=== PATIENT | female | born 1970 | race Caucasian/White ===

== ENCOUNTER 2017-03-12 14:15 | Outpatient (RCR) | payer BC, SELFPAY ==
[2017-02-18 08:33] VITALS: BMI 24.0
== END 2017-03-12 23:59 ==
LOC: CR 14:15
PROVIDERS: Family Provider Family Medicine; PCP Family Medicine; Visit Provider Internal Medicine Cardiovascular Disease
DX: I23.3 Rupture of cardiac wall without hemopericardium as current complication following acute myocardial infarction (principal); I25.798 Atherosclerosis of other coronary artery bypass graft(s) with other forms of angina pectoris; Z95.5 Presence of coronary angioplasty implant and graft
CPT/HCPCS: 93798

== ENCOUNTER 2017-03-13 00:23 | Emergency (ER) | payer BC, SELFPAY ==
[2017-02-18 08:33] VITALS: BMI 24.0
[2017-03-13 00:24] VITALS: BP 127/83; PULSE 73; RESP 12; TEMP 36.7; O2SAT 98; BMI 23.6
--- NOTE | 2017-03-13 00:41 | EKG12_ITS ---
Test Reason : CP Blood Pressure : / mmHG Vent. Rate : 069 BPM Atrial Rate : 069 BPM P-R Int : 124 ms QRS Dur : 084 ms QT Int : 402 ms P-R-T Axes : 060 001 -07 degrees QTc Int : 430 ms Normal sinus rhythm T wave abnormality, consider inferior ischemia Abnormal ECG Peaked T waves Confirmed by CALVIN MACK, IRA ([id number]), editorial manager KHALIF GARCIA ([id number] on 03/17/2017 4:13:04 PM Referred By: Ira Portillo Confirmed By:IRA PORTILLO MD
--- NOTE | 2017-03-13 00:41 | RAD_ITS ---
STUDY: X-RAY CHEST REASON FOR EXAM: Female, 47 years old. Left-sided chest pain TECHNIQUE: Single AP portable view of the chest. COMPARISON: 02/20/2017 FINDINGS: The lungs are clear and expanded. There is no demonstrated pleural abnormality. Normal size heart. Normal mediastinum and lester. Normal visualized pulmonary arteries. Normal visualized aortic arch and descending thoracic aorta. Normal visualized thoracic spine. Normal visualized ribs, clavicles, and shoulders. There is no demonstrated abnormality of the visualized soft tissue structures of the upper abdomen. RAD/Chest 1 View (Portable) IMPRESSION: Normal x-ray examination of the chest. Electronically Signed: Brian Carter MD at 1:49 EST Tel , Service support ,
[2017-03-13 00:44] VITALS: BP 108/73; PULSE 69; RESP 15; O2SAT 100
[2017-03-13 00:53] LABS: Absolute Lymphocyte Count 3.56 X10^3/ul (0.83-4.51); Absolute Neutrophil Count 5.2 X10^3/uL (2.0-7.7); Basophil# 0.06 X10^3/uL; Basophil% 0.6 % (0-1); Eosinophil# 0.19 X10^3/uL; Eosinophils% 1.9 % (0-5); Hematocrit 36.9 % (37-47); Hemoglobin 12.4 g/dl (12.0-15.0); Lymphocyte # 3.56 X10^3/ul (4.0); Lymphocyte % 35.9 % (19-41); Mean Corp Hgb Conc 33.6 g/gl (32-36); Mean Corpuscular Hgb 31.7 pg (27.0-32.0); Mean Corpuscular Volume 94.4 fL (81-99); Mean Platelet Vol. 11.4 fl (6.2-12.0); Monocyte# 0.88 X10^3/uL; Monocyte% 8.9 % (0-10); Neutrophil # 5.21 X10^3/uL (2.7-7.7); Neutrophil % 52.5 % (47-70); POSITIVE COUNT NO; POSITIVE DIFFERENTIAL NO; POSITIVE MORPHOLOGY NO; Platelet Count 197 K/mm3 (150-450); RBC Distribution Width SD 43.8 fl (35.1-43.9); Red Blood Count 3.91 M/mm3 (4.2-5.4); White Blood Count 9.9 K/mm3 (4.4-11.0)
[2017-03-13 01:03] LABS: Anion Gap 9 (5-15); BUN 13 mg/dL (7-18); BUN/Creat Ratio 17.2 RATIO (10-20); Chloride 104 mmol/L (98-107); Creatinine, Serum 0.76 mg/dL (0.55-1.02); EST Glomerular Filtration Rate 88 mL/min (>60); Est Glom Filt Rate - Afr Amer 106 mL/min (>60); Estimated Creatinine Clearance 87.51 ml/min; Glucose 86 mg/dL (70-110); Potassium 3.7 mmol/L (3.5-5.1); Sodium Level 140 mmol/L (136-145)
[2017-03-13 02:14] VITALS: BP 101/67; PULSE 64; RESP 16; O2SAT 96
--- NOTE | 2017-03-13 03:03 | ED.VISSUMM ---
- ER Visit Summary Date of Service: 03/13/17 Chief Complaint: [] Chest pain History of Present Illness: The patient is a 47 F resents with chest pain that started 5 hours prior to coming in. Came on gradually and is continuous. Current severity is gone. Worsened by nothing. She had a STEMI on February 17 and received 1 stent to her left circumflex. He had a V. fib arrest as well and received CPR. Since her discharge she has had some residual chest discomfort mainly on the right side from the CPR. She had her second visit at cardiac rehab today. She is on aspirin and Plavix. Physical Examination: [] Vital signs reviewed General: Well-nourished well-developed Head: Normocephalic atraumatic Eyes: Pupils equal round and reactive to light extraocular movements intact ENT: TMs clear no hemotympanum no trauma Neck: Nontender full range of motion Cardiovascular: Regular rate rhythm no murmurs normal S1-S2 Respiratory: No distress clear to auscultation bilaterally chest nontender Abdomen: Soft nontender nondistended normal bowel sounds no masses Back: Nontender no CVA tenderness Extremities: Nontender active range of motion ?4 extremities no trauma Skin: Normal color no trauma Neuro alert oriented cranial nerves II through XII intact normal strength sensation reflexes Test Results: [] Initial EKG shows sinus rhythm at a rate of 69. T-wave inversion inferior leads as well as V6. This is unchanged from prior. CBC normal. Chemistry normal. Chest x-ray normal. Initial troponin negative. Delta troponin II hours later also negative. Patient remained chest pain-free in the department. Of a low suspicion for acute coronary syndrome PE or dissection. I feel she can be discharged to follow-up. I do not feel this is cardiac related. Treatment Plan: [] Disposition: [] Impression: [] Chest pain This note was generated with [facility] dictation software. It may contain incorrect words, spelling, and punctuation that were not noted in review of the chart prior to signing ED Disposition - Plan for ED Patient: Chief Complaint: Chest Pain Referrals: Colleen Holbrook MD [Primary Care Provider] -
[2017-03-13 03:05] VITALS: BP 96/57; PULSE 67; PULSE 71; RESP 14; RESP 16; O2SAT 96; O2SAT 97
--- NOTE | 2017-03-13 03:05 | ED.DEP ---
ED Disposition - Plan for ED Patient: Disposition: Home or Assisted Living Chief Complaint: Chest Pain Instructions: ED Chest Pain NonCardiac Referrals: Colleen Holbrook MD [Primary Care Provider] - Guillermo Portillo MD [STAFF PHYSICIAN] -
== END 2017-03-13 03:10 | disposition home or self-care (01) ==
PROVIDERS: Emergency Provider Emergency Medicine; Family Provider Family Medicine; PCP Family Medicine
DX: R07.9 Chest pain, unspecified (principal); I25.2 Old myocardial infarction; Z95.5 Presence of coronary angioplasty implant and graft; Z79.01 Long term (current) use of anticoagulants; Z86.74 Personal history of sudden cardiac arrest; I25.10 Atherosclerotic heart disease of native coronary artery without angina pectoris; I10 Essential (primary) hypertension; Z72.0 Tobacco use; Z79.82 Long term (current) use of aspirin; Z79.899 Other long term (current) drug therapy
CPT/HCPCS: 71045; 80048; 84484; 85025; 93005; 99284; A4216

== ENCOUNTER 2017-03-17 21:22 | Emergency (ER) | payer BC, SELFPAY ==
[2017-02-18 08:33] VITALS: BMI 24.0
[2017-02-18 09:00] VITALS: BP 72/65; BP 86/58
[2017-02-20 08:30] VITALS: BP 92/60
[2017-03-17 21:22] VITALS: BP 108/73
[2017-03-17 21:23] VITALS: BP 133/81; PULSE 92; RESP 18; TEMP 36.7; O2SAT 98; BMI 22.1
--- NOTE | 2017-03-17 21:45 | CT_ITS ---
STUDY: CT ABDOMEN AND PELVIS WITH CONTRAST REASON FOR EXAM: Female, 47 years old. Bloody diarrhea. RADIATION DOSAGE (If Supplied By Facility): CTDIvol = ( 10.57 ) mGy, DLP = ( 509.88 ) mGycm TECHNIQUE: Transaxial images were obtained from the dome of the diaphragm to the symphysis pubis without oral contrast. 100ml ml of Isovue 300 contrast was administered. Sagittal and coronal images were reconstructed. Individualized dose optimization techniques were used for this CT. COMPARISON: None. FINDINGS: The visualized lung bases are unremarkable. The visualized portions of the heart are within normal limits. There is thickening of the pericardium probably due to motion. There is no definite pericardial effusion. There is hepatomegaly with diffuse hepatic enlargement. There are surgical clips in the gallbladder fossa consistent with a prior cholecystectomy. Normal spleen. Normal pancreas. Normal bilateral adrenal glands. Normal right kidney. There is a small low-density lesion in the mid aspect of the left kidney likely presenting small cyst measuring about 1 cm better evaluated by ultrasound. There is a 2 mm nonobstructing stone in the lower pole of the left kidney. There is no evidence of hydronephrosis.. The stomach is somewhat distended. There is an artifact the anterior aspect of the stomach close to the anterior abdominal wall. Underlying foreign body cannot be excluded. Normal small intestine. There is fecal retention. The appendix is visualized and appears normal. There is mild atherosclerotic calcification of the distal abdominal aorta, without a demonstrated aneurysm. Normal inferior vena cava. There are small retroperitoneal nodes in the left periaortic region. Normal urinary bladder. There is a 3.5 cm right adnexal cystic lesion. There is a small umbilical hernia containing fat. There is mild disc space narrowing of L4-L5. CT/Abdomen/Pelvis WITH Contrast IMPRESSION: Hepatomegaly. Status post cholecystectomy. Small nonobstructing stone in the left kidney without evidence of hydronephrosis. Artifact in the region of the stomach as described above. Underlying foreign body cannot be excluded. No evidence of small bowel obstruction. Electronically Signed: Joel Pan MD at 0:17 EST Tel , Service support ,
[2017-03-17 21:54] VITALS: BP 109/78; BP 118/79; BP 125/101; PULSE 102; PULSE 88; PULSE 89
[2017-03-17] MEDS: 0.9% Normal Saline 1,000 ML 1000 ML IV (21:58)
--- NOTE | 2017-03-17 21:58 | ED.VISSUMM ---
- ER Visit Summary Date of Service: 03/17/17 Chief Complaint: Bloody diarrhea History of Present Illness: The patient is a [address] Worley and Dr. Portillo. She reports that she has chronic loose stools since having a cholecystectomy. This has worsened since February 17. States that yesterday they were is a trace of blood in her stool. Today she has had bright red blood in her diarrhea. She reports she had 6 episodes of diarrhea 2 days ago and was going once an hour yesterday. She was on Augmentin last month when hospitalized for a STEMI. Patient denies any fever or chills. No abdominal pain, nausea, or vomiting. No chest pain or shortness of breath. Physical Examination: Vitals: Stable. Afebrile. General: Well-nourished and well-developed. Head: Normocephalic atraumatic. Neck: Supple, no lymphadenopathy. No JVD. Nontender. Cardiovascular: Regular rate and rhythm. No murmurs. Respiratory: No respiratory distress. Clear to auscultation bilaterally. Abdominal: Soft, nontender, nondistended, normal bowel sounds. No guarding, rebound, or peritoneal signs. Back: Nontender. Extremities: Nontender, no edema. Skin: Normal color, no rash. Neurologic: Alert and oriented ?3. Cranial nerves II through XII are intact. Normal strength and sensation. Psych: Normal affect. Test Results: CBC is remarkable for an H&H of 12.1 and 36.7. Her hemoglobin was 12.44 days ago. It ranged between 10.6 and 14 so far this year. Lymphocytes of 18 and monocytes of 12. Chem-7 is normal. Hemoccult is positive. C. difficile is positive. Emergency Department Course and Treatment: Patient did have a small amount of mucousy diarrhea in the emergency department. There was no obvious blood in this. She was given Flagyl p.o. She is resting comfortably and would like to go home. Treatment Plan: I do not think it is in her best interest to stop her aspirin or Plavix. She is instructed to continue these. She will be placed on Flagyl p.o. Instructed to follow-up with her primary care physician in 1-2 days for repeat hemoglobin. Return to the emergency department for worsening bleeding. Disposition: To home in improved and stable condition. Impression: 1. C. difficile colitis. This note was generated with [employer] dictation software. It may contain incorrect words, spelling, and punctuation that were not noted in review of the chart prior to signing ED Disposition - Plan for ED Patient: Chief Complaint: GI Bleed Instructions: Clostridium difficile Infection Prescriptions: Metronidazole [Flagyl] 500 mg PO Q6H #40 tablet Referrals: Colleen Holbrook MD [Primary Care Provider] - 2 Days
[2017-03-17 22:06] LABS: Absolute Neutrophil Count 7.4 X10^3/uL (2.0-7.7); Basophil# 0.01 X10^3/uL; Basophil% 0.1 % (0-1); Eosinophils% 0.9 % (0-5); Hematocrit 36.7 % (37-47); Hemoglobin 12.1 g/dl (12.0-15.0); Lymphocyte % 17.7 % (19-41); Mean Corpuscular Hgb 30.8 pg (27.0-32.0); Mean Corpuscular Volume 93.4 fL (81-99); Mean Platelet Vol. 10.6 fl (6.2-12.0); Monocyte# 1.26 X10^3/uL; Monocyte% 11.7 % (0-10); Neutrophil # 7.44 X10^3/uL (2.7-7.7); Neutrophil % 69.4 % (47-70); POSITIVE COUNT NO; POSITIVE DIFFERENTIAL NO; POSITIVE MORPHOLOGY NO; Platelet Count 193 K/mm3 (150-450); RBC Distribution Width CV 13.2 % (11.6-14.6); RBC Distribution Width SD 45.3 fl (35.1-43.9); Red Blood Count 3.93 M/mm3 (4.2-5.4); White Blood Count 10.7 K/mm3 (4.4-11.0)
[2017-03-17 22:13] LABS: Anion Gap 7 (5-15); BUN 15 mg/dL (7-18); BUN/Creat Ratio 15.2 RATIO (10-20); Calcium,Total 8.8 mg/dL (8.5-10.1); Chloride 106 mmol/L (98-107); Creatinine, Serum 0.98 mg/dL (0.55-1.02); EST Glomerular Filtration Rate 65 mL/min (>60); Est Glom Filt Rate - Afr Amer 79 mL/min (>60); Estimated Creatinine Clearance 67.86 ml/min; Glucose 93 mg/dL (74-106); Potassium 3.5 mmol/L (3.5-5.1); Sodium Level 139 mmol/L (136-145)
--- NOTE | 2017-03-17 23:45 | ED.RN ---
LAB CALLS AND STATES THAT PATIENT IS POSITIVE FOR C-DIFF, DR. PLAZA MADE AWARE.
[2017-03-18 00:19] VITALS: BP 120/67; PULSE 87; RESP 16; O2SAT 98
== END 2017-03-18 00:45 | disposition home or self-care (01) ==
LOC: ED 22:00
PROVIDERS: Emergency Provider Emergency Medicine; Family Provider Family Medicine; PCP Family Medicine
DX: A04.72 Enterocolitis due to Clostridium difficile, not specified as recurrent (principal); I25.10 Atherosclerotic heart disease of native coronary artery without angina pectoris; I10 Essential (primary) hypertension; E78.00 Pure hypercholesterolemia, unspecified; Z87.891 Personal history of nicotine dependence; Z79.82 Long term (current) use of aspirin; Z79.01 Long term (current) use of anticoagulants; Z79.899 Other long term (current) drug therapy; Z90.49 Acquired absence of other specified parts of digestive tract; Z90.710 Acquired absence of both cervix and uterus
CPT/HCPCS: 74177; 80048; 82274; 85025; 86850; 86900; 87493; 87506; 99285; J7030; Q9967

== ENCOUNTER 2017-04-07 14:15 | Outpatient (RCR) | payer BC, SELFPAY ==
[2017-02-18 08:33] VITALS: BMI 24.0
[2017-02-18 09:00] VITALS: BP 72/65; BP 86/58
[2017-02-20 08:30] VITALS: BP 92/60
[2017-03-13 00:44] VITALS: BP 108/73
[2017-04-09 13:24] VITALS: BP 140/78; BP 90/68
--- NOTE | 2017-04-09 13:24 | CR.ITP_ITS ---
Exercise - Initial Assessment - Stages of Change Stages of Change:: Action - Exercise Prescription Mode:: Treadmill, Rower, Airdyne, NuStep Angina with exercise?: No Target Heart Rate:: 131-140 - Intervention Home Exercise/Activity Goal:: Moderate Exercise 30 min/day x 5 days/wk - Education Goals:: Warm-up, RPE JULIAN Scale, S/S, Safe Exercise, Self-Monitoring - Exercise Program Goals Exercise Program Goals: Aerobic Activity >30 min Exercise - 30-day Assessment - Visit Date of Eval: 04/09/17 Session #:: 03/10/2017-04/09/2017 - Stages of Change Stages of Change:: Action - Exercise Prescription Mode:: Treadmill, Rower, Airdyne, NuStep Frequency (x/week): 3 Duration:: 30 METs - Progression: 0.5-1 MET as tolerated: 6 Target Heart Rate:: 131-141 - Hypertension Resting Blood Pressure:: 90/68 Peak Exercise Blood Pressure:: 140/78 Medication Changes:: No - Intervention Home Exercise/Activity Goal:: Moderate Exercise 30 min/day x 5 days/wk - Education Goals:: Warm-up, RPE JULIAN Scale, S/S, Safe Exercise, Self-Monitoring - Exercise Program Goals Exercise Program Goals: Aerobic Activity >30 min Nutrition - Initial Assessment - Program Goals Nutrition Program Goals: LDL <70. Total Cholesterol <200. HDL >45. Triglycerides <150. HgbA1C <7%. BMI <25 - Stages of Change Stages of Change:: Action - Diabetes Diabetes:: No Non-Insulin Dependent?: No Do you monitor your blood sugar at home?: No - Weight Management Body Fat %:: 22 Total Score:: 3 - Intervention Referral to dietitian:: No Referral to Diabetic Clinic:: No Will attend diet classes:: No - Education Gave educational materials for:: Healthy eating Nutrition - 30-Day Assessment - Program Goals Nutrition Program Goals: LDL <70. Total Cholesterol <200. HDL >45. Triglycerides <150. HgbA1C <7%. BMI <25 - Visit Date of Eval: 04/09/17 - Stages of Change Stages of Change:: Action - Lipids Has the patient seen the dietitian?: No - Diabetes Diabetes:: No Insulin: No Non-Insulin Dependent?: No - Weight Management Weight:: 139 lb - Intervention Referral to dietitian:: No Referral to Diabetic Clinic:: No Will attend diet classes:: No - Education Attended class for:: Healthy eating Nutrition - 60-Day Assessment - Program Goals Nutrition Program Goals: LDL <70. Total Cholesterol <200. HDL >45. Triglycerides <150. HgbA1C <7%. BMI <25 - Diabetes Diabetes:: No Insulin: No Non-Insulin Dependent?: No - Intervention Referral to dietitian:: No Referral to Diabetic Clinic:: No Will attend diet classes:: No - Education Attended class for:: Healthy eating Nutrition - 90-Day Assessment - Program Goals Nutrition Program Goals: LDL <70. Total Cholesterol <200. HDL >45. Triglycerides <150. HgbA1C <7%. BMI <25 - Diabetes Diabetes:: No Insulin: No Non-Insulin Dependent?: No - Intervention Referral to dietitian:: No Referral to Diabetic Clinic:: No Will attend diet classes:: No - Education Attended class for:: Healthy eating Nutrition - Final Assessment - Program Goals Nutrition Program Goals: LDL <70. Total Cholesterol <200. HDL >45. Triglycerides <150. HgbA1C <7%. BMI <25 - Diabetes Diabetes:: No Insulin: No Non-Insulin Dependent?: No - Weight Management Body Fat %:: 22 Total Score:: 3 - Intervention Referral to dietitian:: No Referral to Diabetic Clinic:: No Will attend diet classes:: No Tobacco - Initial Assessment - Program Goals Tobacco Program Goals: Complete smoking cessation. Attend education classes. Improve Knowledge Test score - Stage of Change Stages of Change:: Action - Learning Barriers Learning Barriers: Vision, Ready to Learn Total Score:: 10 - Family Support Do you have family support?: Yes - Tobacco Use Tobacco Use: Cigarettes How long ago did you quit using tobacco products?: Less than 6 months ago How many cigarettes do you smoke per day?: 20 Years Smokin Do you use smokeless tobacco?: No - Intervention Smoking Cessation Referral:: Yes - Patient only been smoke free 11 days; 45 Pack year history. Individual Education/Counseling:: Yes - Recommended meeting with Meg Neil RRT for smoking cessation. Education Schedule Given:: Yes - Education Gave educational material for:: Tobacco triggers, Coronary artery disease, Risk factors, Sexuality, Medical compliance, Cardiac A&P, Angina signs & symptoms Tobacco - 30-Day Assessment - Program Goals Tobacco Program Goals: Complete smoking cessation. Attend education classes. Improve Knowledge Test score - Stage of Change Stages of Change:: Action - Learning Barriers Learning Barriers: Participates in education, Change in behavior - Family Support Do you have family support?: Yes - Tobacco Use Tobacco Use: Non-smoker How many cigarettes do you smoke per day?: 20 Do you use smokeless tobacco?: No - Intervention Smoking Cessation Referral:: Yes - Patient only been smoke free 11 days; 45 Pack year history. Individual Education/Counseling:: Yes - Recommended meeting with Meg Neil RRT for smoking cessation. Education Schedule Given:: Yes - Education Attended class for:: Tobacco triggers, Coronary artery disease, Risk factors, Sexuality, Medical compliance, Cardiac A&P, Angina signs & symptoms Tobacco - 60-Day Assessment - Program Goals Tobacco Program Goals: Complete smoking cessation. Attend education classes. Improve Knowledge Test score - Family Support Do you have family support?: Yes - Tobacco Use How many cigarettes do you smoke per day?: 20 Do you use smokeless tobacco?: No - Intervention Smoking Cessation Referral:: Yes - Patient only been smoke free 11 days; 45 Pack year history. Individual Education/Counseling:: Yes - Recommended meeting with Meg Neil RRT for smoking cessation. Education Schedule Given:: Yes - Education Attended class for:: Tobacco triggers, Coronary artery disease, Risk factors, Sexuality, Medical compliance, Cardiac A&P, Angina signs & symptoms Tobacco - 90-Day Assessment - Program Goals Tobacco Program Goals: Complete smoking cessation. Attend education classes. Improve Knowledge Test score - Family Support Do you have family support?: Yes - Tobacco Use How many cigarettes do you smoke per day?: 20 Do you use smokeless tobacco?: No - Intervention Smoking Cessation Referral:: Yes - Patient only been smoke free 11 days; 45 Pack year history. Individual Education/Counseling:: Yes - Recommended meeting with Meg Neil RRT for smoking cessation. Education Schedule Given:: Yes - Education Attended class for:: Tobacco triggers, Coronary artery disease, Risk factors, Sexuality, Medical compliance, Cardiac A&P, Angina signs & symptoms Tobacco - Final Assessment - Program Goals Tobacco Program Goals: Complete smoking cessation. Attend education classes. Improve Knowledge Test score - Learning Barriers Cardiac Knowledge Test Score:: 10 - Family Support Do you have family support?: Yes - Tobacco Use How many cigarettes do you smoke per day?: 20 Do you use smokeless tobacco?: No - Intervention Smoking Cessation Referral:: Yes - Patient only been smoke free 11 days; 45 Pack year history. Individual Education/Counseling:: Yes - Recommended meeting with Meg Neil RRT for smoking cessation. Education Schedule Given:: Yes Psychosocial - Initial Assess - Target Goals Target Goals: Assess presence or absence of depression. Using a valid screening tool, maximizes coping skills. Positive support system - Stages of Change Stages of Change:: Action - Psychosocial Test Tool Used:: HANDS Depression Questionnaire Self-Efficacy Score:: 5 - Intervention PS - Interventions: Yes Attend Stress Management Classes, Yes Uses Stress Management Skills, No Referral to Mental Health, No Referral to [facility] Case Management, No Referral to Physician - Education Gave educational materials for:: Coping techniques, Signs & symptoms of depression, Stress management, Relaxation techniques - Patient/Program Goal Preventative Medication(s):: Aspirin, Clopidogrel - Assistive Devices Assistive Devices:: None Fall Risk Assessed:: Yes Psychosocial - 30-Day Assess - Target Goals Target Goals: Assess presence or absence of depression. Using a valid screening tool, maximizes coping skills. Positive support system - Stages of Change Stages of Change:: Action - Psychosocial Test Tool Used:: HANDS Depression Questionnaire Self-Efficacy Score:: 5 - Intervention PS - Interventions: Yes Attend Stress Management Classes, Yes Uses Stress Management Skills, No Referral to Mental Health, No Referral to [facility] Case Management, No Referral to Physician - Education Attended classes for:: Coping techniques, Signs & symptoms of depression, Stress management, Relaxation techniques - Patient/Program Goal Preventative Medication(s):: Aspirin, Clopidogrel - Assistive Devices Assistive Devices:: None Fall Risk Assessed:: Yes Psychosocial - 60-Day Assess - Target Goals Target Goals: Assess presence or absence of depression. Using a valid screening tool, maximizes coping skills. Positive support system - Psychosocial Test Tool Used:: HANDS Depression Questionnaire Self-Efficacy Score:: 5 - Education Attended classes for:: Coping techniques, Signs & symptoms of depression, Stress management, Relaxation techniques - Patient/Program Goal Preventative Medication(s):: Aspirin, Clopidogrel - Assistive Devices Assistive Devices:: None Fall Risk Assessed:: Yes Psychosocial - 90-Day Assess - Target Goals Target Goals: Assess presence or absence of depression. Using a valid screening tool, maximizes coping skills. Positive support system - Psychosocial Test Tool Used:: HANDS Depression Questionnaire Self-Efficacy Score:: 5 - Education Attended classes for:: Coping techniques, Signs & symptoms of depression, Stress management, Relaxation techniques - Patient/Program Goal Preventative Medication(s):: Aspirin, Clopidogrel - Assistive Devices Assistive Devices:: None Fall Risk Assessed:: Yes Psychosocial - Final Assessmen - Target Goals Target Goals: Assess presence or absence of depression. Using a valid screening tool, maximizes coping skills. Positive support system - Psychosocial Test Tool Used:: HANDS Depression Questionnaire Self-Efficacy Score:: 5 - Patient/Program Goal Preventative Medication(s):: Aspirin, Clopidogrel - Assistive Devices Assistive Devices:: None Fall Risk Assessed:: Yes Patient Health Questionnaire 30-Day Re-eval Assessment 1. Little interest or pleasure in doing things: Not at all 2. Feeling down, depressed, or hopeless: Several days 3. Trouble falling or staying asleep, or sleeping too much: Not at all 4. Feeling tired or having little energy: Not at all 5. Poor appetite or overeating: Not at all 6. Feeling bad about yourself -- or that you are a failure or have let yourself or your family down: Not at all 7. Trouble concentrating on things, such as reading the newspaper or watching television: Several days 8. Moving or speaking so slowly that other people could have noticed. Or the opposite - being so fidgety or restless that you have been moving around a lot more than usual: Not at all 9. Thoughts that you would be better off , or of hurting yourself in some way: Not at all Total Score: 2 Self-Efficacy 30-Day Re-eval Assessment We would like to know how confident you are in doing certain activities. Please select your confidence level for:: Select your confidence level for the following using the scale 1-10 where 1 is not at all confident and 10 is totally confident. Your score is the average of all 6 responses. Fatigue: How confident are you that you can keep the fatigue caused by your disease from interfering with the things you want to do? Select Number: 8 Physical Discomfort or Pain: How confident are you that you can keep the physical discomfort or pain of your disease from interfering with the things you want to do? Select Number: 8 Emotional Distress: How confident are you that you can keep the emotional distress caused by your disease from interfering with the things you want to do? Select Number: 7 Other Symptoms or Health Problems: How confident are you that you can keep other symptoms or health problems from interfering with the things you want to do? Select Number: 8 Different Tasks and Activities: How confident are you that you can do the different tasks and activities needed to manage your health condition so as to reduce your need to see a doctor? Select Number: 9 Medication: How confident are you that you can do things other than just taking medication to reduce how much your illness affects your everyday life? Select Number: 10 Total Score:: 8
== END 2017-04-09 23:59 ==
LOC: CR 14:15
PROVIDERS: Family Provider Family Medicine; PCP Family Medicine; Visit Provider Internal Medicine Cardiovascular Disease
DX: I23.3 Rupture of cardiac wall without hemopericardium as current complication following acute myocardial infarction (principal); I25.798 Atherosclerosis of other coronary artery bypass graft(s) with other forms of angina pectoris; I21.3 ST elevation (STEMI) myocardial infarction of unspecified site; Z95.5 Presence of coronary angioplasty implant and graft
CPT/HCPCS: 93798

== ENCOUNTER 2017-04-08 18:49 | Emergency (ER) | payer BC, SELFPAY ==
[2017-02-18 08:33] VITALS: BMI 24.0
[2017-04-08 18:49] VITALS: BP 115/81; PULSE 100; RESP 16; TEMP 37.1; O2SAT 100; BMI 22.6
[2017-04-08] MEDS: Ondansetron 4 MG/2 ML Vial IV (19:28)
[2017-04-08] MEDS: 0.9% Normal Saline 1,000 ML 1000 ML IV (19:28)
[2017-04-08 19:46] LABS: Anion Gap 5 (5-15); BUN 15 mg/dL (7-18); Calcium,Total 8.9 mg/dL (8.5-10.1); Chloride 108 mmol/L (98-107); Creatinine, Serum 0.83 mg/dL (0.55-1.02); EST Glomerular Filtration Rate 79 mL/min (>60); Est Glom Filt Rate - Afr Amer 95 mL/min (>60); Estimated Creatinine Clearance 80.13 ml/min; Glucose 119 mg/dL (74-106); Potassium 3.5 mmol/L (3.5-5.1); Sodium Level 141 mmol/L (136-145)
[2017-04-08 19:58] LABS: Absolute Lymphocyte Count 1.48 X10^3/ul (0.83-4.51); Absolute Neutrophil Count 11.7 X10^3/uL (2.0-7.7); Basophil# 0.02 X10^3/uL; Basophil% 0.1 % (0-1); Eosinophil# 0.19 X10^3/uL; Eosinophils% 1.3 % (0-5); Hematocrit 40.4 % (37-47); Hemoglobin 13.2 g/dl (12.0-15.0); Lymphocyte # 1.48 X10^3/ul (4.0); Lymphocyte % 10.4 % (19-41); Mean Corp Hgb Conc 32.7 g/gl (32-36); Mean Corpuscular Hgb 30.8 pg (27.0-32.0); Mean Corpuscular Volume 94.2 fL (81-99); Mean Platelet Vol. 10.9 fl (6.2-12.0); Monocyte# 0.76 X10^3/uL; Monocyte% 5.4 % (0-10); Neutrophil % 82.7 % (47-70); Platelet Count 204 K/mm3 (150-450); RBC Distribution Width CV 13.3 % (11.6-14.6); RBC Distribution Width SD 45.7 fl (35.1-43.9); Red Blood Count 4.29 M/mm3 (4.2-5.4); White Blood Count 14.2 K/mm3 (4.4-11.0)
[2017-04-08 19:59] LABS: POSITIVE COUNT NO; POSITIVE DIFFERENTIAL NO; POSITIVE MORPHOLOGY NO
--- NOTE | 2017-04-08 23:09 | ED.VISSUMM ---
- ER Visit Summary Date of Service: 04/08/17 Chief Complaint: Diarrhea History of Present Illness: The patient is a [address] Portillo and Dr. Turner. She was diagnosed with Clostridium difficile March 17. She was on Flagyl for 10 days. She reports the diarrhea resolved. However, she began experiencing diarrhea again yesterday. She reports that she has had this proximally 15 times since then. States that it is a faint pink. This is similar to what she had with her C. difficile. She complains of aching diffuse abdominal pain is 8 out of 10 at worst and 5 out of 10 currently. Is worsened by eating or having a bowel movement. It is relieved after having a bowel movement. Physical Examination: Vitals: Stable. Afebrile. General: Well-nourished and well-developed. Head: Normocephalic atraumatic. Neck: Supple, no lymphadenopathy. No JVD. Nontender. Cardiovascular: Regular rate and rhythm. No murmurs. Respiratory: No respiratory distress. Clear to auscultation bilaterally. Abdominal: Soft, mild diffuse tenderness to palpation, nondistended, normal bowel sounds. No guarding, rebound, or peritoneal signs. Back: Nontender. Extremities: Nontender, no edema. Skin: Normal color, no rash. Neurologic: Alert and oriented ?3. Cranial nerves II through XII are intact. Normal strength and sensation. Psych: Normal affect. Test Results: CBC is marked for white count of 14.2, segmented neutrophils 83, lymphocytes of 10. Chem-7 is more for chloride of 108 and glucose 119. C. difficile is positive. Emergency Department Course and Treatment: Patient is treated with Zofran IV and a liter of normal saline. She is given vancomycin p.o. Treatment Plan: Was discussed with Dr. Cheney who asked patient be placed on vancomycin 125 mg p.o. 4 times daily ?14 days. If she is not improving he would be happy to see her. If she has improved to follow-up with her primary care physician. Return to the emergency department for any worsening symptoms. Disposition: To home in improved and stable condition. Impression: 1. Clostridium difficile. This note was generated with [employer]com[employer] software. It may contain incorrect words, spelling, and punctuation that were not noted in review of the chart prior to signing ED Disposition - Plan for ED Patient: Disposition: Home or Assisted Living Chief Complaint: Diarrhea Instructions: Clostridium difficile Infection Prescriptions: Vancomycin [Vancocin] 125 mg PO Q6H #56 capsule Referrals: Prem Cheney MD [STAFF PHYSICIAN] - 10-14 Days if not better Colleen Holbrook MD [Primary Care Provider] - 1-2 Weeks
--- NOTE | 2017-04-08 23:16 | ED.RN ---
LAB CALLS WITH CRITICAL RESULT, C-DIFF POSITIVE, DR. PLAZA MADE AWARE.
[2017-04-08 23:33] VITALS: BP 109/69; PULSE 71; RESP 16; O2SAT 99
== END 2017-04-08 23:33 | disposition home or self-care (01) ==
LOC: ED 19:40
PROVIDERS: Emergency Provider Emergency Medicine; Family Provider Family Medicine; PCP Family Medicine
DX: A04.72 Enterocolitis due to Clostridium difficile, not specified as recurrent (principal); I25.10 Atherosclerotic heart disease of native coronary artery without angina pectoris; I10 Essential (primary) hypertension; E78.00 Pure hypercholesterolemia, unspecified; Z79.82 Long term (current) use of aspirin; Z79.899 Other long term (current) drug therapy
CPT/HCPCS: 80048; 85025; 87493; 96361; 96374; 99283; J7030; J2405

== ENCOUNTER 2017-04-25 14:15 | Outpatient (RCR) | payer BC, SELFPAY ==
[2017-02-18 08:33] VITALS: BMI 24.0
[2017-04-10 00:58] VITALS: BP 108/73; BP 140/78; BP 90/68; BMI 23.6
[2017-05-05 09:19] VITALS: BP 100/60; BP 130/64
--- NOTE | 2017-05-05 09:20 | CR.ITP_ITS ---
Exercise - Initial Assessment - Stages of Change Stages of Change:: Action - Exercise Prescription Mode:: Treadmill, Rower, Airdyne, NuStep Angina with exercise?: No Target Heart Rate:: 131-140 - Intervention Home Exercise/Activity Goal:: Moderate Exercise 30 min/day x 5 days/wk - Education Goals:: Warm-up, RPE JULIAN Scale, S/S, Safe Exercise, Self-Monitoring - Exercise Program Goals Exercise Program Goals: Aerobic Activity >30 min Exercise - 30-day Assessment - Visit Date of Eval: 04/09/17 - Stages of Change Stages of Change:: Action - Exercise Prescription Mode:: Treadmill, Rower, Airdyne, NuStep Frequency (x/week): 3 Duration:: 30 METs - Progression: 0.5-1 MET as tolerated: 6 Target Heart Rate:: 131-141 - Intervention Home Exercise/Activity Goal:: Moderate Exercise 30 min/day x 5 days/wk - Education Goals:: Warm-up, RPE JULIAN Scale, S/S, Safe Exercise, Self-Monitoring - Exercise Program Goals Exercise Program Goals: Aerobic Activity >30 min Exercise - Final/Discharge - Visit Date of Eval: 05/05/17 - 03/21/2017-04/25/2017 Session #:: 16 - [place] - Stages of Change Stages of Change:: Action - Exercise Prescription Mode:: Treadmill, Rower, Airdyne, NuStep Frequency (x/week): 3 Duration:: 30 METs: 7.1 Target Heart Rate:: 131-140 Max HR 119 - Hypertension Do any of the following apply?: Medication Resting Blood Pressure:: 100/60 Peak Exercise Blood Pressure:: 130/64 - Intervention Home Exercise/Activity Goal:: Sitting Time <3 hrs/day - Education Goal Progress: Goal Met - Exercise Program Goals Exercise Program Goals: Aerobic Activity >30 min, B/P <140/90 Nutrition - Initial Assessment - Program Goals Nutrition Program Goals: LDL <70. Total Cholesterol <200. HDL >45. Triglycerides <150. HgbA1C <7%. BMI <25 - Stages of Change Stages of Change:: Action - Diabetes Diabetes:: No Non-Insulin Dependent?: No Do you monitor your blood sugar at home?: No - Weight Management Body Fat %:: 22 Total Score:: 3 - Intervention Referral to dietitian:: No Referral to Diabetic Clinic:: No Will attend diet classes:: No - Education Gave educational materials for:: Healthy eating Nutrition - 30-Day Assessment - Program Goals Nutrition Program Goals: LDL <70. Total Cholesterol <200. HDL >45. Triglycerides <150. HgbA1C <7%. BMI <25 - Stages of Change Stages of Change:: Action - Lipids Has the patient seen the dietitian?: No - Diabetes Diabetes:: No Non-Insulin Dependent?: No - Intervention Referral to dietitian:: No Referral to Diabetic Clinic:: No Will attend diet classes:: No - Education Attended class for:: Healthy eating Nutrition - 60-Day Assessment - Program Goals Nutrition Program Goals: LDL <70. Total Cholesterol <200. HDL >45. Triglycerides <150. HgbA1C <7%. BMI <25 - Lipids Has the patient seen the dietitian?: No - Diabetes Diabetes:: No Non-Insulin Dependent?: No - Intervention Referral to dietitian:: No Referral to Diabetic Clinic:: No Will attend diet classes:: No - Education Attended class for:: Healthy eating Nutrition - 90-Day Assessment - Program Goals Nutrition Program Goals: LDL <70. Total Cholesterol <200. HDL >45. Triglycerides <150. HgbA1C <7%. BMI <25 - Lipids Has the patient seen the dietitian?: No - Diabetes Diabetes:: No Non-Insulin Dependent?: No - Intervention Referral to dietitian:: No Referral to Diabetic Clinic:: No Will attend diet classes:: No - Education Attended class for:: Healthy eating Nutrition - Final Assessment - Program Goals Nutrition Program Goals: LDL <70. Total Cholesterol <200. HDL >45. Triglycerides <150. HgbA1C <7%. BMI <25 - Visit Date of Eval: 05/05/17 - 03/21/2017-04/25/2017 - Stages of Change Stages of Change:: Action - Diabetes Diabetes:: No Non-Insulin Dependent?: No - Weight Management Weight:: 64.864 kg Body Fat %:: 22 Total Score:: 3 - Intervention Referral to dietitian:: No Referral to Diabetic Clinic:: No Will attend diet classes:: No - Education Education Goal Reached?: Yes Tobacco - Initial Assessment - Program Goals Tobacco Program Goals: Complete smoking cessation. Attend education classes. Improve Knowledge Test score - Stage of Change Stages of Change:: Action - Learning Barriers Learning Barriers: Vision, Ready to Learn Total Score:: 10 - Family Support Do you have family support?: Yes - Tobacco Use Tobacco Use: Cigarettes How long ago did you quit using tobacco products?: Less than 6 months ago How many cigarettes do you smoke per day?: 20 Years Smokin Do you use smokeless tobacco?: No - Intervention Smoking Cessation Referral:: Yes - Patient only been smoke free 11 days; 45 Pack year history. Individual Education/Counseling:: Yes - Recommended meeting with Meg Neil RRT for smoking cessation. Education Schedule Given:: Yes - Education Gave educational material for:: Tobacco triggers, Coronary artery disease, Risk factors, Sexuality, Medical compliance, Cardiac A&P, Angina signs & symptoms Tobacco - 30-Day Assessment - Program Goals Tobacco Program Goals: Complete smoking cessation. Attend education classes. Improve Knowledge Test score - Stage of Change Stages of Change:: Action - Learning Barriers Learning Barriers: Participates in education, Change in behavior - Family Support Do you have family support?: Yes - Tobacco Use Tobacco Use: Non-smoker How many cigarettes do you smoke per day?: 20 Do you use smokeless tobacco?: No - Intervention Smoking Cessation Referral:: Yes - Patient only been smoke free 11 days; 45 Pack year history. Individual Education/Counseling:: Yes - Recommended meeting with Meg Neil RRT for smoking cessation. Education Schedule Given:: Yes - Education Attended class for:: Tobacco triggers, Coronary artery disease, Risk factors, Sexuality, Medical compliance, Cardiac A&P, Angina signs & symptoms Tobacco - 60-Day Assessment - Program Goals Tobacco Program Goals: Complete smoking cessation. Attend education classes. Improve Knowledge Test score - Family Support Do you have family support?: Yes - Tobacco Use Tobacco Use: Non-smoker How many cigarettes do you smoke per day?: 20 Do you use smokeless tobacco?: No - Intervention Smoking Cessation Referral:: Yes - Patient only been smoke free 11 days; 45 Pack year history. Individual Education/Counseling:: Yes - Recommended meeting with Meg Neil RRT for smoking cessation. Education Schedule Given:: Yes - Education Attended class for:: Tobacco triggers, Coronary artery disease, Risk factors, Sexuality, Medical compliance, Cardiac A&P, Angina signs & symptoms Tobacco - 90-Day Assessment - Program Goals Tobacco Program Goals: Complete smoking cessation. Attend education classes. Improve Knowledge Test score - Family Support Do you have family support?: Yes - Tobacco Use Tobacco Use: Non-smoker How many cigarettes do you smoke per day?: 20 Do you use smokeless tobacco?: No - Intervention Smoking Cessation Referral:: Yes - Patient only been smoke free 11 days; 45 Pack year history. Individual Education/Counseling:: Yes - Recommended meeting with Meg Neil RRT for smoking cessation. Education Schedule Given:: Yes - Education Attended class for:: Tobacco triggers, Coronary artery disease, Risk factors, Sexuality, Medical compliance, Cardiac A&P, Angina signs & symptoms Tobacco - Final Assessment - Program Goals Tobacco Program Goals: Complete smoking cessation. Attend education classes. Improve Knowledge Test score - Stage of Change Stages of Change:: Action - Learning Barriers Cardiac Knowledge Test Score:: 10 - Family Support Do you have family support?: Yes - Tobacco Use Tobacco Use: Non-smoker - stopped smoking How many cigarettes do you smoke per day?: 20 Do you use smokeless tobacco?: No - Intervention Smoking Cessation Referral:: Yes - Patient only been smoke free 11 days; 45 Pack year history. Individual Education/Counseling:: Yes - Recommended meeting with Meg Neil RRT for smoking cessation. Education Schedule Given:: Yes - Education Education Goal Reached?: Yes Psychosocial - Initial Assess - Target Goals Target Goals: Assess presence or absence of depression. Using a valid screening tool, maximizes coping skills. Positive support system - Stages of Change Stages of Change:: Action - Psychosocial Test Tool Used:: HANDS Depression Questionnaire Self-Efficacy Score:: 5 - Education Gave educational materials for:: Coping techniques, Signs & symptoms of depression, Stress management, Relaxation techniques - Patient/Program Goal Preventative Medication(s):: Aspirin, Clopidogrel - Assistive Devices Assistive Devices:: None Fall Risk Assessed:: Yes Psychosocial - 30-Day Assess - Target Goals Target Goals: Assess presence or absence of depression. Using a valid screening tool, maximizes coping skills. Positive support system - Stages of Change Stages of Change:: Action - Psychosocial Test Tool Used:: HANDS Depression Questionnaire Self-Efficacy Score:: 5 - Patient/Program Goal Preventative Medication(s):: Aspirin, Clopidogrel - Assistive Devices Assistive Devices:: None Fall Risk Assessed:: Yes Psychosocial - 60-Day Assess - Target Goals Target Goals: Assess presence or absence of depression. Using a valid screening tool, maximizes coping skills. Positive support system - Psychosocial Test Tool Used:: HANDS Depression Questionnaire Self-Efficacy Score:: 5 - Education Attended classes for:: Coping techniques, Signs & symptoms of depression, Stress management, Relaxation techniques - Patient/Program Goal Preventative Medication(s):: Aspirin, Clopidogrel - Assistive Devices Assistive Devices:: None Fall Risk Assessed:: Yes Psychosocial - 90-Day Assess - Target Goals Target Goals: Assess presence or absence of depression. Using a valid screening tool, maximizes coping skills. Positive support system - Psychosocial Test Tool Used:: HANDS Depression Questionnaire Self-Efficacy Score:: 5 - Education Attended classes for:: Coping techniques, Signs & symptoms of depression, Stress management, Relaxation techniques - Patient/Program Goal Preventative Medication(s):: Aspirin, Clopidogrel - Assistive Devices Assistive Devices:: None Fall Risk Assessed:: Yes Psychosocial - Final Assessmen - Target Goals Target Goals: Assess presence or absence of depression. Using a valid screening tool, maximizes coping skills. Positive support system - Stages of Change Stages of Change:: Action - Psychosocial Test Tool Used:: HANDS Depression Questionnaire Self-Efficacy Score:: 5 - Intervention PS - Interventions: Yes Attend Stress Management Classes, Yes Uses Stress Management Skills, No Referral to Mental Health, No Referral to [facility] Case Management, No Referral to Physician - Education Education Goal Reached?: Yes - Patient/Program Goal Preventative Medication(s):: Aspirin, Clopidogrel - Assistive Devices Assistive Devices:: None Fall Risk Assessed:: Yes Patient Health Questionnaire Discharge Assessment 1. Little interest or pleasure in doing things: Not at all 2. Feeling down, depressed, or hopeless: Not at all 3. Trouble falling or staying asleep, or sleeping too much: Not at all 4. Feeling tired or having little energy: Not at all 5. Poor appetite or overeating: Not at all 6. Feeling bad about yourself -- or that you are a failure or have let yourself or your family down: Not at all 7. Trouble concentrating on things, such as reading the newspaper or watching television: Not at all 8. Moving or speaking so slowly that other people could have noticed. Or the opposite - being so fidgety or restless that you have been moving around a lot more than usual: Not at all 9. Thoughts that you would be better off , or of hurting yourself in some way: Not at all How difficult have these problems made it for you to do your work, take care of things at home, or get along with other people?: Not difficult at all Total Score: 0 Self-Efficacy Discharge Assessment We would like to know how confident you are in doing certain activities. Please select your confidence level for:: Select your confidence level for the following using the scale 1-10 where 1 is not at all confident and 10 is totally confident. Your score is the average of all 6 responses. Fatigue: How confident are you that you can keep the fatigue caused by your disease from interfering with the things you want to do? Select Number: 10 Physical Discomfort or Pain: How confident are you that you can keep the physical discomfort or pain of your disease from interfering with the things you want to do? Select Number: 10 Emotional Distress: How confident are you that you can keep the emotional distress caused by your disease from interfering with the things you want to do? Select Number: 10 Other Symptoms or Health Problems: How confident are you that you can keep other symptoms or health problems from interfering with the things you want to do? Select Number: 10 Different Tasks and Activities: How confident are you that you can do the different tasks and activities needed to manage your health condition so as to reduce your need to see a doctor? Select Number: 10 Medication: How confident are you that you can do things other than just taking medication to reduce how much your illness affects your everyday life? Select Number: 10 Total Score:: 10 Cardiac Rehabilitation Goals - Cardiac Rehab Goals Cardiac Rehabilitation Goals: 1. Maintain the individual as the primary focus of care. 2. To improve the patient's quality of life. 3. Identification of cardiac risk factors and provide cardiac risk factor management. 4. Enhance the psychosocial status of the patient. 5. Reconditioning enough to allow the patient to resume customary activities. 6. Control symptoms of cardiac disease - Scale Scale for measuring improvement of personal goals: Enter appropriate number in Comments. 2 = Unchanged. 3 = Slightly Better. 4 = Moderate Improvement. 5 = Met my Goal Discharge Assessment Personal Goals: Discharge Reassessment: Improve management of stress and emotions, Improve energy level, Participate in home exercise program, Get back to work, or to resume activities faster, Improve muscle strength and endurance
== END 2017-04-30 13:50 | disposition home or self-care (01) ==
LOC: CR 14:15
PROVIDERS: Family Provider Family Medicine; PCP Family Medicine; Visit Provider Internal Medicine Cardiovascular Disease
DX: I23.3 Rupture of cardiac wall without hemopericardium as current complication following acute myocardial infarction (principal); I25.798 Atherosclerosis of other coronary artery bypass graft(s) with other forms of angina pectoris; Z95.5 Presence of coronary angioplasty implant and graft
CPT/HCPCS: 93798

== ENCOUNTER → 2020-06-16 15:32 | Outpatient (CLI) | payer MEDICAID, SELFPAY ==
[2017-02-18 08:33] VITALS: BMI 24.0
[2018-01-13 08:34] VITALS: BMI 24.3
[2020-06-16 17:49] LABS: T4 Total, Thyroxin 7.6 ug/dL (4.8-13.9); Thyroid Stim Hormone (TSH) 1.56 uIU/mL (0.358-3.74)
[2020-06-18 12:07] LABS: HEPATITIS B SURFACE AG Negative (Negative); Hepatitis A AB, Total Positive (Negative); Hepatitis A IgM Antibody Negative (Negative); Hepatitis B Core AB IgM Negative (Negative); Hepatitis B Core Ab Total Negative (Negative); Hepatitis C Ab <0.1 s/co ratio (0.0-0.9)
[2020-06-18 13:46] LABS: Hep B Surface Antibodies Non Reactive (.); Thyroid Peroxidase AB < 9 IU/mL (0-34)
== END ==
PROVIDERS: PCP Nurse Practitioner Adult Health; Referring Provider Nurse Practitioner Adult Health; Visit Provider Nurse Practitioner Adult Health
DX: Z20.5 Contact with and (suspected) exposure to viral hepatitis (principal)
CPT/HCPCS: 36415; 84436; 84443; 86376; 86704; 86705; 86706; 86708; 86709; 86803; 87340

== ENCOUNTER → 2020-06-30 12:06 | Outpatient (CLI) | payer MEDICAID, SELFPAY ==
[2017-02-18 08:33] VITALS: BMI 24.0
[2018-01-13 08:34] VITALS: BMI 24.3
--- NOTE | 2020-06-30 12:11 | US_ITS ---
STUDY: THYROID ULTRASOUND REASON FOR EXAM: Female, 50 years old. DYSPHAGIA TECHNIQUE: Ultrasound evaluation of the thyroid was performed with real-time and static quan-scale imaging. COMPARISON: None. FINDINGS: RIGHT LOBE: The right lobe of the thyroid gland measures 4.4 x 1.4 x 1.5 cm. There is a homogeneous echotexture. There are no demonstrated solid, cystic or complex lesions. LEFT LOBE: The left lobe of the thyroid gland measures 4.0 x 1.5 x 1.2 cm. There is a homogeneous echotexture. There are 2 poorly defined hypoechoic upper pole nodules in the left lobe larger measures 0.6 cm, smaller 0.4 cms. Since there are no previous studies available for comparison, six-month follow-up ultrasound recommended to assure stability. ISTHMUS: The isthmus measures 3 mm. The regional lymph nodes are normal. US/Thyroid IMPRESSION: Normal sized homogeneous thyroid gland with poorly defined subcentimeter nodules in the left lobe. 6 month follow-up recommended to assure stability Electronically Signed: Chandler Bright MD at 12:57 EDT , Service support ,
== END ==
DX: R13.10 Dysphagia, unspecified (principal)
CPT/HCPCS: 76536

== ENCOUNTER → 2020-11-08 11:41 | Outpatient (CLI) | payer MEDICAID, SELFPAY ==
[2017-02-18 08:33] VITALS: BMI 24.0
--- NOTE | 2020-11-08 18:07 | STRESSREP ---
Stress Test Report Exercise stress test. 50-year-old lady with a history of chest pain. Stress protocol: Resting KG demonstrates normal sinus rhythm with a rate of 77 bpm resting blood pressure is 134/78 mmHg. The patient exercised according to regular Black protocol for total duration of 7 minutes. The maximum heart rate attained was 146 bpm which was 84% of max infected heart rate the maximum workload was 10.1 metabolic equivalents. The patient completed 1 minute into stage III of the Black protocol. Upsloping ST changes only were noted at rest and with exercise with did not meet the criteria for ischemia. The peak blood pressure was 180/70 mmHg and the test was terminated due to dyspnea. No arrhythmias were noted. Conclusion: Exercise stress test with no evidence of ischemia at a high workload. Good functional rate capacity.
== END ==
PROVIDERS: Visit Provider Nurse Practitioner Family
DX: I25.10 Atherosclerotic heart disease of native coronary artery without angina pectoris (principal); R07.9 Chest pain, unspecified; Z95.5 Presence of coronary angioplasty implant and graft
CPT/HCPCS: 93017

== ENCOUNTER → 2020-12-11 07:07 | Outpatient (CLI) | payer BC, MEDICAID, SELFPAY ==
[2017-02-18 08:33] VITALS: BMI 24.0
[2020-12-11 08:18] LABS: Absolute Lymphocyte Count 2.32 X10^3/uL (0.83-4.51); Absolute Neutrophil Count 6.2 X10^3/uL (2.0-7.7); Basophil# 0.04 X10^3/uL; Basophil% 0.4 % (0-1); Eosinophil# 0.32 X10^3/uL; Eosinophils% 3.4 % (0-5); Hematocrit 46.1 % (37-47); Hemoglobin 15.4 g/dL (12.0-15.0); Lymphocyte # 2.32 X10^3/ul (0.83-4.51); Lymphocyte % 24.4 % (19-41); Mean Corp Hgb Conc 33.4 g/dL (32-36); Mean Corpuscular Hgb 30.9 pg (27.0-32.0); Mean Corpuscular Volume 92.6 fL (81-99); Mean Platelet Vol. 11.3 fl (6.2-12.0); Monocyte# 0.57 X10^3/uL; NRBC Flagged by Analyzer 0 % (0-5); Neutrophil # 6.23 X10^3/uL (2.7-7.7); Neutrophil % 65.5 % (47-70); Platelet Count 216 K/mm3 (150-450); RBC Distribution Width CV 13.1 % (11.6-14.6); RBC Distribution Width SD 44.4 fl (35.1-43.9); Red Blood Count 4.98 M/mm3 (4.2-5.4); White Blood Count 9.5 K/mm3 (4.4-11.0)
[2020-12-11 08:39] LABS: ALB/GLOB Ratio 0.8 RATIO (0.9-2.4); AST(SGOT) 15 U/L (15-37); Alanine Aminotransfer ALT/SGPT 30 U/L (13-56); Albumin, Serum 3.4 g/dL (3.2-5.0); Alkaline Phosphatase 123 U/L (45-117); Anion Gap 6 (5-15); BUN 16 mg/dL (7-18); BUN/Creat Ratio 17.7 RATIO (10-20); CPK Total, Creatine Kinase 76 U/L (26-192); CRP, High Sensitivity Cardiac 0.68 mg/L; Calcium,Total 9.7 mg/dL (8.5-10.1); Chloride 105 mmol/L (98-107); EST Glomerular Filtration Rate 71 mL/min (>60); Erythrocyte Sedimentation Rate 14 mm/hr (0-30); Est Glom Filt Rate - Afr Amer 85 mL/min (>60); Globulin 4.1 g/dL (2.2-4.2); Glucose 105 mg/dL (74-106); Potassium 4.2 mmol/L (3.5-5.1); Protein, Total 7.5 g/dL (6.4-8.2); Sodium Level 139 mmol/L (136-145)
== END ==
PROVIDERS: Referring Provider Nurse Practitioner Adult Health; Visit Provider Nurse Practitioner Adult Health
DX: M79.669 Pain in unspecified lower leg (principal)
CPT/HCPCS: 36415; 80053; 82550; 85025; 85652; 86141

== ENCOUNTER → 2020-12-20 10:44 | Outpatient (CLI) | payer BC, MEDICAID, SELFPAY ==
[2017-02-18 08:33] VITALS: BMI 24.0
[2020-12-20 12:25] LABS: Magnesium 2.1 mg/dL (1.6-2.6); Rheumatoid Factor < 10.0 IU/mL (<15)
[2020-12-21 12:59] LABS: ANTINUCLEAR ANTIBODIES DIRECT Negative (Negative)
== END ==
PROVIDERS: Visit Provider Nurse Practitioner Adult Health
DX: M79.669 Pain in unspecified lower leg (principal); M25.50 Pain in unspecified joint
CPT/HCPCS: 36415; 83735; 86038; 86431

== ENCOUNTER → 2020-12-27 08:45 | Outpatient (CLI) | payer BC, MEDICAID, SELFPAY ==
[2017-02-18 08:33] VITALS: BMI 24.0
--- NOTE | 2020-12-27 09:04 | US_ITS ---
STUDY: THYROID ULTRASOUND REASON FOR EXAM: Female, 50 years old. GOITER TECHNIQUE: Ultrasound evaluation of the thyroid was performed with real-time and static quan-scale imaging. COMPARISON: 06/30/2020 FINDINGS: RIGHT LOBE: The right lobe of the thyroid gland measures 4.5 x 1.3 x 2.3 cm. There is a homogeneous echotexture. There are no demonstrated solid, cystic or complex lesions. LEFT LOBE: The left lobe of the thyroid gland measures 4.3 x 1.3 x 1.9 cm. There is a homogeneous echotexture. Hypoechoic nodules (TR 4) of the left thyroid lobe are stable measuring up to 6 mm. Small anechoic cyst measures 2 mm. ISTHMUS: The isthmus measures 2 mm. The regional lymph nodes are normal. US/Thyroid IMPRESSION: Stable left thyroid lobe nodules. Given small size, no follow-up required, according to ACR guidelines. Electronically Signed: Manuelito Cristina MD ([place]) at 12:38 EST , Service support ,
--- NOTE | 2020-12-27 09:07 | RAD_ITS ---
STUDY: X-RAY - PELVIS AND BILATERAL HIPS REASON FOR EXAM: Bilateral hip pain, stiffness, pain currently worse in right hip. TECHNIQUE: AP view of the pelvis.? 2 views of the right hip, and 2 views of the left hip were obtained. COMPARISON: None. FINDINGS: There are small pelvic phleboliths. Normal bilateral iliac wings, sacroiliac joints and visualized sacrum. Normal bilateral superior and inferior pubic rami. Normal pubic symphysis. Normal bilateral ischial tuberosities. Normal visualized right femoral head. Normal right acetabulum. There is mild joint space narrowing of the superior medial right hip joint. Normal visualized left femoral head. Normal left acetabulum. There is mild joint space narrowing of the superior medial left hip joint. RAD/Hips B/L min 2 views w/ Pelvis IMPRESSION: Mild bilateral hip arthrosis. Electronically Signed: Jony Rodriguez MD at 9:57 EST Tel , Service support ,
== END ==
LOC: US 09:03 → RAD 09:06
PROVIDERS: Referring Provider Nurse Practitioner Adult Health; Visit Provider Nurse Practitioner Adult Health
DX: E04.2 Nontoxic multinodular goiter (principal); M25.551 Pain in right hip
CPT/HCPCS: 73521; 76536

== ENCOUNTER → 2021-01-10 11:28 | Outpatient (CLI) | payer BC, MEDICAID, SELFPAY ==
[2017-02-18 08:33] VITALS: BMI 24.0
[2021-01-10 12:18] LABS: Absolute Lymphocyte Count 2.39 X10^3/uL (0.83-4.51); Absolute Neutrophil Count 4.3 X10^3/uL (2.0-7.7); Basophil# 0.03 X10^3/uL; Basophil% 0.4 % (0-1); Eosinophil# 0.25 X10^3/uL; Eosinophils% 3.3 % (0-5); Hematocrit 42.3 % (37-47); Hemoglobin 14.3 g/dL (12.0-15.0); Lymphocyte # 2.39 X10^3/ul (0.83-4.51); Lymphocyte % 31.5 % (19-41); Mean Corp Hgb Conc 33.8 g/dL (32-36); Mean Corpuscular Volume 91.8 fL (81-99); Mean Platelet Vol. 10.9 fl (6.2-12.0); Monocyte# 0.53 X10^3/uL; NRBC Flagged by Analyzer 0 % (0-5); Neutrophil # 4.31 X10^3/uL (2.7-7.7); Neutrophil % 56.7 % (47-70); Platelet Count 186 K/mm3 (150-450); RBC Distribution Width CV 13.2 % (11.6-14.6); RBC Distribution Width SD 44.4 fl (35.1-43.9); Red Blood Count 4.61 M/mm3 (4.2-5.4); White Blood Count 7.6 K/mm3 (4.4-11.0)
[2021-01-10 12:33] LABS: Prothrombin Time (Protime)PT. 12.6 SECONDS (11.7-14.9)
[2021-01-10 12:36] LABS: ALB/GLOB Ratio 0.9 RATIO (0.9-2.4); AST(SGOT) 20 U/L (15-37); Alanine Aminotransfer ALT/SGPT 35 U/L (13-56); Albumin, Serum 3.3 g/dL (3.2-5.0); Alkaline Phosphatase 125 U/L (45-117); Anion Gap 7 (5-15); BUN 15 mg/dL (7-18); BUN/Creat Ratio 17.5 RATIO (10-20); Calcium,Total 9.6 mg/dL (8.5-10.1); Chloride 106 mmol/L (98-107); Creatinine, Serum 0.86 mg/dL (0.55-1.02); EST Glomerular Filtration Rate 75 mL/min (>60); Est Glom Filt Rate - Afr Amer 91 mL/min (>60); Globulin 3.7 g/dL (2.2-4.2); Glucose 88 mg/dL (74-106); Potassium 3.7 mmol/L (3.5-5.1); Sodium Level 143 mmol/L (136-145)
== END ==
PROVIDERS: Visit Provider Nurse Practitioner Adult Health
DX: G56.03 Carpal tunnel syndrome, bilateral upper limbs (principal)
CPT/HCPCS: 36415; 80053; 85025; 85610

== ENCOUNTER → 2021-06-21 | Outpatient (CLI) | payer MEDICAID, SELFPAY ==
[2017-02-18 08:33] VITALS: BMI 24.0
[2021-06-21 11:54] LABS: T4 Free Direct 0.89 ng/dL (0.76-1.46); Thyroid Stim Hormone (TSH) 1.28 uIU/mL (0.358-3.74)
[2021-06-22 13:32] LABS: Thyroid Peroxidase AB < 8 IU/mL (0-34)
== END | disposition home or self-care (01) ==
LOC: LAB 10:22
PROVIDERS: Visit Provider Nurse Practitioner Adult Health
DX: R63.5 Abnormal weight gain (principal)
CPT/HCPCS: 36415; 84439; 84443; 86376

== ENCOUNTER → 2021-08-28 | Outpatient (CLI) | payer BC, MEDICAID, SELFPAY ==
[2017-02-18 08:33] VITALS: BMI 24.0
--- NOTE | 2021-08-28 12:14 | BI_ITS ---
MAMMOGRAPHY - BILATERAL SCREENING REASON FOR EXAM: Female, 51 years old. Routine annual screening examination. PERTINENT HISTORY: Non-contributory. TECHNIQUE: Digital bilateral breast jamar (3D mammographic acquisition) in the CC and MLO projections. 2-D mediolateral oblique (MLO) and craniocaudad (CC) views of both breasts were obtained. CAD: Full Field Digital Mammography with Computer Added Detection was performed. COMPARISON: Comparison is made with prior outside examination dated 04/08/2017. FINDINGS: Breast Composition: There are scattered areas of fibroglandular density. There are no dominant masses or suspicious calcifications. Stable small benign-appearing bilateral axillary lymph nodes. No other significant abnormalities are identified. There has been no significant change since the prior study. BI/SCRN MAMM (CAD)W/JAMAR BILAT IMPRESSION: Stable bilateral screening mammogram. Yearly follow-up mammogram recommended. (A) ASSESSMENT CATEGORY: BIRADS Category 2: Benign. A letter regarding these results will be sent to the patient by the facility within 30 days. Approximately 10% of breast cancers are not detected by mammography. A normal mammogram should not delay biopsy of a clinically suspicious abnormality. [id number] Electronically Signed: Jackson Green MD at 12:55 EDT ,
== END | disposition home or self-care (01) ==
LOC: OPBI 12:13
PROVIDERS: Visit Provider Nurse Practitioner Adult Health
DX: Z12.31 Encounter for screening mammogram for malignant neoplasm of breast (principal)
CPT/HCPCS: 77063; 77067

== ENCOUNTER → 2022-03-05 | Outpatient (CLI) | payer BC, MEDICAID, SELFPAY ==
[2017-02-18 08:33] VITALS: BMI 24.0
[2022-03-05 07:26] LABS: Absolute Lymphocyte Count 2.93 X10^3/uL (0.83-4.51); Absolute Neutrophil Count 4.6 X10^3/uL (2.0-7.7); Basophil# 0.04 X10^3/uL; Basophil% 0.5 % (0-1); Eosinophil# 0.26 X10^3/uL; Eosinophils% 3.1 % (0-5); Hematocrit 44.8 % (37-47); Hemoglobin 14.4 g/dL (12.0-15.0); Lymphocyte # 2.93 X10^3/ul (0.83-4.51); Lymphocyte % 34.6 % (19-41); Mean Corp Hgb Conc 32.1 g/dL (32-36); Mean Corpuscular Volume 93.3 fL (81-99); Monocyte# 0.62 X10^3/uL; Monocyte% 7.3 % (0-10); NRBC Flagged by Analyzer 0 % (0-5); Neutrophil # 4.59 X10^3/uL (2.7-7.7); Neutrophil % 54.1 % (47-70); Platelet Count 228 K/mm3 (150-450); RBC Distribution Width CV 13.2 % (11.6-14.6); RBC Distribution Width SD 45.5 fl (35.1-43.9); White Blood Count 8.5 K/mm3 (4.4-11.0)
[2022-03-05 08:19] LABS: AST(SGOT) 14 U/L (15-37); Alanine Aminotransfer ALT/SGPT 24 U/L (13-56); Albumin, Serum 3.5 g/dL (3.2-5.0); Alkaline Phosphatase 122 U/L (45-117); Anion Gap 3 (5-15); BUN 14 mg/dL (7-18); BUN/Creat Ratio 16.7 RATIO (10-20); Calcium,Total 9.6 mg/dL (8.5-10.1); Chloride 109 mmol/L (98-107); Cholesterol 157 mg/dL (200); Creatinine, Serum 0.84 mg/dL (0.55-1.02); EST Glomerular Filtration Rate 76 mL/min (>60); Est Glom Filt Rate - Afr Amer 92 mL/min (>60); Globulin 3.5 g/dL (2.2-4.2); Glucose 101 mg/dL (74-106); High Density Lipoprotein 49 mg/dL; Sodium Level 141 mmol/L (136-145); Triglycerides 131 mg/dL; Very Low Density Lipoprotein 26 mg/dL (5-40)
== END | disposition home or self-care (01) ==
LOC: LAB 06:29
DX: I10 Essential (primary) hypertension (principal); E78.5 Hyperlipidemia, unspecified
CPT/HCPCS: 36415; 80053; 80061; 85025

== ENCOUNTER 2022-04-03 06:25 | Day surgery (SDC) | payer BC, MEDICAID, SELFPAY ==
[2017-02-18 08:33] VITALS: BMI 24.0
[2022-04-03 06:48] VITALS: BP 110/79; PULSE 92; RESP 16; TEMP 36.1; O2SAT 100; BMI 22.9
[2022-04-03] MEDS: Lactated Ringers 1,000 ML 15 ML IV (06:52)
--- NOTE | 2022-04-03 07:19 | HP.PCM_ITS ---
HPI - General General Date of Admission: 04/03/22 HPI Narrative JULIA WARD, is a 52 F who presents for screening colonoscopy. Patient has bowel movements daily denies any blood denies any chronic abdominal pain/nausea/vomiting/reflux. Office 02/28/2022 HPI HPI: 52 y/o F presents for screening colonoscopy.? Pt never had previous scope, denies FH of colon cancer.? Pt has BM daily denies blood.? Pt did have a [place] at age 48 s/p stent- currently only on asa 81 mg. denies chronic abdominal pain/N/V/GERD PFS Medical History (Updated 03/28/22 @ 11:48 by Ester Mendes) Anemia Anxiety Arthritis Atherosclerosis of coronary artery of [place] heart without angina pectoris C. 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 Post-menopausal Shortness of breath on exertion Smoker Wears glasses Home Medications aspirin 81 mg tablet,delayed release 81 mg PO DAILY@0800 02/21/17 [Rx Last Taken Unknown] carvedilol 3.125 mg tablet 3.125 mg PO BID #180 tabs 01/05/18 [Rx Last Taken Unknown] atorvastatin 40 mg tablet 40 mg PO DAILY 10/31/20 [History Last Taken Unknown] cholecalciferol (vitamin D3) 125 mcg (5,000 unit) capsule 125 mcg PO DAILY 10/31/20 [History Last Taken Unknown] buspirone 15 mg tablet 15 mg PO BID 02/28/22 [History Last Taken Unknown] Allergy/AdvReac Type Severity Reaction Status Date / Time Penicillins Allergy Other Verified 03/28/22 11:38 lisinopril AdvReac cough Verified 03/28/22 11:38 Family History (Updated 02/28/22 @ 14:18 by Chana Brambila) Father CAD (coronary artery disease) [place] Diabetes Hypertension Heart disease Cancer Sister Diabetes half sister Mother CVA (cerebral vascular accident) Hypertension Brother Cancer Surgical History (Updated 03/28/22 @ 11:48 by Ester Mendes) History of cardiac catheterization History of coronary artery stent placement (02/17/17) History of partial hysterectomy History of recent maxillofacial surgery Hx laparoscopic cholecystectomy Hx of section Hx of tubal ligation Social History (Updated 02/28/22 @ 14:19 by Chana Brambila) Smoking Status: Current some day smoker tobacco type: cigarettes alcohol intake: current alcohol intake frequency: holidays/special occasions only substance use type: does not use Past Medical/Surgical History Planned Operation Planned Operative Procedure/s: COLONOSCOPY Previous Hospitalizations/Surgeries HX Hospitalizations: No HX of Surgeries: gallbladder removed 5 years ago Any Problems With Anesthesia: No You/Your Family Experience Fever (Hyperthermia) With Anes: No Cholinesterase deficiency: No Cardiovascular Hx Chest Pain within Last 2 months: No Hx of Irregular Heartbeat and/or Afib: No Hx Heart Attack: Yes Hx Hypertension: Yes (CONTROLLED ON MED) Hx Cardiac Catheterization: Yes What facility was last heart cath performed: - Date of last Heart Cath: - Hx Cardiac Surgery/Stents/Etc.: No Hx Pain in Legs when Walking/Leg Cramps: No Respiratory Hx Chronic Obstructive Pulmonary Disease (COPD): No Hx Asthma: No Hx Emphysema: No Hx Sleep Apnea: No Hx Respiratory Tract Infection/Cold (presently): No Do You Snore Loudly (louder than talking or can be heard): No Do You Often Feel Tired/ Fatigued/ Sleepy Dring Daytime?: No Has Anyone Observed You Stop Breathing During Sleep?: No Result (for STOP score): Negative Hx Smoking: Yes Smoking Status: Current some day smoker Gastrointestinal Hx Gastrointestinal Bleed: No Hx Ulcer: No Difficulty Chewing/Swallowing: No Hx Unplanned Weight Loss of 20#: No Neurological Hx Seizures: No Hx Multiple Sclerosis: No Hx Parkinson's Disease: No Does patient have nerve stimulator: No Blood Disorder Hx High Cholesterol: Yes Hx Hepatitis: No Hx Cirrhosis: No Hx Anemia: No Hx Blood Disorders: No Genitourinary Hx Renal Disease: No Hx Dialysis: No Musculoskeletal Hx Arthritis: No Hx Rheumatoid Arthritis: No Endocrine Hx Diabetes: No Insulin: No Thyroid Disease: Yes (Used to be prescribed synthroid, but has been off for approx 6 years) Psycho/Social Hx Substance Use: No Hx Alcohol Use: No Hx Anxiety: Yes Hx Depression: Yes Hx Dementia: No Miscellaneous Hx Cancer: No Recent Exposure to Contagious Disease: No Allergies Penicillins Allergy (Verified 03/28/22 11:38) Other CONVULSIONS lisinopril Adverse Reaction (Verified 03/28/22 11:38) cough Maternal: Family History (Updated 01/19/23 @ 14:18 by Chana Brambila) Father CAD (coronary artery disease) Diabetes Hypertension Heart disease Cancer Sister Diabetes Mother CVA (cerebral vascular accident) Hypertension Brother Cancer No pertinent history Discharge Is Pt Admitted From a Detention, or a Senior Living: No After D/C, Where Do you Plan to Go: Return Home Vital Signs Vital Signs Vital Signs: 04/03/22 06:48 04/03/22 06:48 Temperature 97.0 F L Temperature Source Temporal Pulse Rate 92 Respiratory Rate 16 Respiratory Pattern Normal Blood Pressure 110/79 Blood Pressure Mean 89 Blood Pressure Source Monitor Blood Pressure Position Semi-Fowlers Blood Pressure Location Left Arm Pulse Ox 100 Oxygen Delivery Method Room Air Weight Weight: 142 lb 3.17 oz Body Mass Index (BMI) 22.9 Physical Exam Const alert, oriented x3 and no apparent distress HEENT normocephalic and head/scalp atraumatic Resp normal respiratory effort Cardio regular rate GI soft to palpation and non-tender; Negative for non-distended Palpation: Negative for guarding Extremity no clubbing, cyanosis or edema Neuro CN's II-XII intact bilaterally Psych mental status grossly normal Assessment & Plan Assessment/Plan (1) Screening for malignant neoplasm of colon: (2) History of coronary artery stent placement: Surgery Risks - Colonoscopy Risks Include but are not Limited To: Risks include but are not limited to: Bleeding, perforation requiring further surgery, inability to complete colonoscopy requiring barium enema.
--- NOTE | 2022-04-03 07:30 | COLBX_PTH ---
PATIENT: JULIA WARD LOC: EN U#:[id number] AGE/SX: 52/F ROOM: RE04/03/[address]: Dr. Annita Blackmon MD : 1970 BED: DIS: 04/03/2022 SPEC #: [id number] RECD: 04/03/22 10:23 STATUS: VIGNESH REQ #: [id number] ALEXI: 04/03/22 07:[address]: Annita Blackmon DEPT: SURGICAL PATHOLOGY RECD BY: Desirae Malone ENTERED: 04/03/22 11:57 SP TYPE: COLON BX OTHR DR: [facility] Tissues: Rectum, NOS Procedures: Surgery Specimen Level IV HEADER OPERATION: Colonoscopy (MAC) with biopsy PRE-OP DIAGNOSIS: Screening TISSUE SUBMITTED: Rectum polyp biopsy MICROSCOPIC DIAGNOSIS Rectum polyp, biopsy: Fragments of hyperplastic polyp. SJ:leonor 04/04/2022 MICROSCOPIC DESCRIPTION Slides are reviewed. GROSS DESCRIPTION Received in fixative is one container labeled with the patient's name and designated rectum polyp biopsy. The specimen consists of multiple irregular fragments of light canchola soft tissue that in aggregate measure 0.6 x 0.3 x 0.1 cm. The specimen is totally submitted in one cassette. / SJ:leonor 04/03/2022 TC:1 CPT: 99006
[2022-04-03 08:00] VITALS: BP 108/64; BP 110/79; PULSE 70; RESP 20; TEMP 36.4; O2SAT 99
[2022-04-03 08:05] VITALS: BP 103/64; BP 110/79; PULSE 73; RESP 20; O2SAT 98
--- NOTE | 2022-04-03 08:08 | OP.COLON_ITS ---
Patient Name: Aidee Moss Procedure Date: 04/03/2022 7:18 AM Date of : 1970 Age: 52 Procedure: Colonoscopy Indications: Screening for colorectal malignant neoplasm Providers: Annita Blackmon MD Referring MD: [facility] Medicines: Monitored Anesthesia Care Patient Profile: This is a 52 year old female. Last Colonoscopy: none. The patient's first colonoscopy is today. Complications: No immediate complications. Procedure: Pre-Anesthesia Assessment: - Prior to the procedure, a History and Physical was performed, and patient medications and allergies were reviewed. The patient's tolerance of previous anesthesia was also reviewed. The risks and benefits of the procedure and the sedation options and risks were discussed with the patient. All questions were answered, and informed consent was obtained. Prior Anticoagulants: The patient has taken no previous anticoagulant or antiplatelet agents. ASA Grade Assessment: Per anesthesia. After reviewing the risks and benefits, the patient was deemed in satisfactory condition to undergo the procedure. After I obtained informed consent, the scope was passed under direct vision. Throughout the procedure, the patient's blood pressure, pulse, and oxygen saturations were monitored continuously. The colonoscope was introduced through the anus and advanced to the cecum, identified by the appendiceal orifice, ileocecal valve and palpation. The colonoscopy was somewhat difficult due to a tortuous colon. Successful completion of the procedure was aided by applying abdominal pressure. The patient tolerated the procedure well. The quality of the bowel preparation was good. Scope In: 7:33:19 AM Scope Withdrawal Time 0 hours 7 minutes 49 seconds Scope Out: 7:56:48 AM Total Procedure Duration Time 0 hours 23 minutes 29 seconds Findings: A less than 5 mm polyp was found in the rectum. The polyp was sessile. The polyp was removed with a cold biopsy forceps. Resection and retrieval were complete. The exam was otherwise without abnormality on direct and retroflexion views. Non-bleeding external and internal hemorrhoids were found. The hemorrhoids were Grade I (internal hemorrhoids that do not prolapse). Impression: - One less than 5 mm polyp in the rectum, removed with a cold biopsy forceps. Resected and retrieved. - The examination was otherwise normal on direct and retroflexion views. - Non-bleeding external and internal hemorrhoids. Recommendation: - Discharge patient to home. - Resume previous diet. - Continue present medications. - Await pathology results. - Repeat colonoscopy in 5-10 years for surveillance based on pathology results. Procedure Code(s): --- Professional --- 60842, PT, Colonoscopy, flexible; with biopsy, single or multiple Diagnosis Code(s): --- Professional --- Z12.11, Encounter for screening for malignant neoplasm of colon K62.1, Rectal polyp CPT copyright 2017 [employer]. All rights reserved. The codes documented in this report are preliminary and upon parking meter installer review may be revised to meet current compliance requirements. MD Annita Rosenbaum MD 04/03/2022 8:07:41 AM This report has been signed electronically. Number of Addenda: 0 Note Initiated On: 04/03/2022 7:18 AM
--- NOTE | 2022-04-03 08:08 | OP.CCLET_ITS ---
04/03/2022 [facility] Re : [facility] This procedure was performed on Sunday, April 03, 2022. My impressions and recommendations are as follows: Impressions : - One less than 5 mm polyp in the rectum, removed with a cold biopsy forceps. Resected and retrieved. - The examination was otherwise normal on direct and retroflexion views. - Non-bleeding external and internal hemorrhoids. Recommendations : - Discharge patient to home. - Resume previous diet. - Continue present medications. - Await pathology results. - Repeat colonoscopy in 5-10 years for surveillance based on pathology results. My findings are described in the full procedure note, which is enclosed. If I can be of further assistance, please feel free to contact me at Doctor phone number(s): , Work: . Sincerely, MD Annita Rosenbaum MD 04/03/2022 8:07:41 AM This report has been signed electronically.
[2022-04-03 08:10] VITALS: BP 105/71; BP 110/79; PULSE 77; RESP 20; O2SAT 100
[2022-04-03 08:15] VITALS: BP 110/79; BP 112/73; PULSE 72; RESP 18; TEMP 36.9; O2SAT 99
[2022-04-03 08:32] VITALS: BP 110/79
== END 2022-04-03 08:49 | disposition home or self-care (01) ==
LOC: EN 06:26 → AC 06:29
PROVIDERS: Visit Provider Surgery
PROC: 0DJD8ZZ Inspection of Lower Intestinal Tract, Via Natural or Artificial Opening Endoscopic (ICD-10-PCS; CPT 45378; principal; 2022-04-03 07:25)
DX: Z12.11 Encounter for screening for malignant neoplasm of colon (principal); I25.10 Atherosclerotic heart disease of native coronary artery without angina pectoris; I25.5 Ischemic cardiomyopathy; Z90.49 Acquired absence of other specified parts of digestive tract; Z79.82 Long term (current) use of aspirin; I10 Essential (primary) hypertension; K64.9 Unspecified hemorrhoids; F17.210 Nicotine dependence, cigarettes, uncomplicated; Z82.3 Family history of stroke; E78.00 Pure hypercholesterolemia, unspecified; K62.1 Rectal polyp; Z95.5 Presence of coronary angioplasty implant and graft
CPT/HCPCS: 45380; 88305; J7120; J2405

== ENCOUNTER → 2022-11-01 | Outpatient (CLI) | payer MEDICAID, SELFPAY ==
[2017-02-18 08:33] VITALS: BMI 24.0
--- NOTE | 2022-11-01 09:09 | RAD_ITS ---
INDICATION: Shortness of breath EXAMINATION/TECHNIQUE: X-RAY - XR Chest 2 Views COMPARISON: March 13, 2017 FINDINGS: LINES/DEVICES: None. LUNGS: No consolidation, edema or effusion. No pneumothorax. MEDIASTINUM AND CARDIOVASCULAR STRUCTURES: Cardiac silhouette not enlarged. Central airways and mediastinal contour are unremarkable. BONES AND SOFT TISSUES: Unremarkable. RAD/Chest PA and Lateral IMPRESSION: No radiographic evidence of acute cardiopulmonary disease. Electronically Signed: Brooke Milian MD at 11:30 EDT ,
== END | disposition home or self-care (01) ==
LOC: RAD 09:08
PROVIDERS: Referring Provider Nurse Practitioner Gerontology; Visit Provider Nurse Practitioner Gerontology
DX: R06.09 Other forms of dyspnea (principal)
CPT/HCPCS: 71046

== ENCOUNTER → 2023-01-22 | Outpatient (CLI) | payer MEDICAID, SELFPAY ==
[2017-02-18 08:33] VITALS: BMI 24.0
--- NOTE | 2023-01-22 13:53 | ECHOD_ITS ---
Reason For Study: SOB, CAD Procedure This was a 2D Doppler, Color Flow transthoracic echocardiogram. Myocardial strain analysis was performed in this exam to aid in the assessment of cardiac function. Exam performed in department. Left Ventricle Normal LV size. Left ventricular systolic function is normal. The estimated ejection fraction is 63 %. No regional wall motion abnormalities noted. Right Ventricle Normal RV size. Normal systolic function. Atria Normal left atrium. Normal right atrium. Mitral Valve Normal mitral valve. Tricuspid Valve Normal tricuspid valve. Pulmonic Valve Normal pulmonic valve. Great Vessels Normal aortic root. The pulmonary artery is normal size. Normal inferior vena cava. Pericardium/Pleural No pericardial effusion. MMode/2D Measurements & Calculations LVIDd: 4.1 cm IVSd: 0.92 cm Ao root diam: 2.6 cm LVIDs: 2.6 cm LVPWd: 0.90 cm RVDd: 3.1 cm FS: 36.7 % LAV(MOD-bp): 39.5 ml LVAd ap4: 20.5 cm2 LVAd ap2: 23.3 cm2 LAV(MOD-bp) Indexed: 22.7 ml/m2 LVLd ap4: 7.3 cm LVLd ap2: 7.7 cm LAV(MOD-sp2): 40.0 ml EDV(MOD-sp4): 49.3 ml EDV(MOD-sp2): 60.8 ml LAV(MOD-sp4): 38.4 ml EDV(sp4-el): 48.9 ml EDV(sp2-el): 59.7 ml LVAs ap4: 10.8 cm2 LVAs ap2: 10.6 cm2 LVLs ap4: 6.6 cm LVLs ap2: 6.7 cm ESV(MOD-sp4): 15.9 ml ESV(MOD-sp2): 14.0 ml ESV(sp4-el): 15.0 ml ESV(sp2-el): 14.2 ml EF(MOD-sp4): 67.8 % EF(MOD-sp2): 76.9 % EF(sp4-el): 69.2 % SV(MOD-sp4): 33.4 ml SV(MOD-sp2): 46.7 ml SV(sp4-el): 33.8 ml LA dimension(2D): 3.0 cm LA A4 area: 15.0 cm2 RA A4 area: 10.7 cm2 TAPSE: 1.9 cm Time Measurements MV dec time: 0.22 sec Doppler Measurements & Calculations MV E max sidney: 90.2 cm/sec Lat Peak E' Sidney: 8.3 cm/sec Med Peak E' Sidney: 8.0 cm/sec MV A max sidney: 88.5 cm/sec E/E' lat: 10.8 E/E' med: 11.3 MV E/A: 1.0 MV dec slope: 407.2 cm/sec2 Ao V2 max: 139.0 cm/sec LV V1 max: 121.8 cm/sec Ao max P.7 mmHg LV V1 max P.9 mmHg Ao V2 mean: 92.1 cm/sec LV V1 mean P.1 mmHg Ao mean P.9 mmHg LV V1 mean: 82.0 cm/sec Ao V2 VTI: 30.5 cm LV V1 VTI: 25.5 cm AV (velocity ratio): 0.84 PA V2 max: 91.4 cm/sec ECHO/Echo Complete Interpretation Summary Normal LV size. Left ventricular systolic function is normal. The estimated ejection fraction is 63 %. Structurally normal valves. The global longitudinal strain is normal. The globa l longitudinal strain = -17.9 % (normal). Compared to previous study, the left ventricular systolic f unction has improved.. Ordering Physician: Deborah Art Referring Physician: [facility] Performed By: Trinh Gallardo RDCS
== END | disposition home or self-care (01) ==
LOC: CVS 13:52
PROVIDERS: Referring Provider Nurse Practitioner Gerontology; Visit Provider Nurse Practitioner Gerontology
DX: R06.09 Other forms of dyspnea (principal); I25.5 Ischemic cardiomyopathy; I10 Essential (primary) hypertension; I25.10 Atherosclerotic heart disease of native coronary artery without angina pectoris; I25.2 Old myocardial infarction; Z95.5 Presence of coronary angioplasty implant and graft
CPT/HCPCS: 93306

== ENCOUNTER → 2023-02-08 | Outpatient (CLI) | payer MEDICAID, SELFPAY ==
[2017-02-18 08:33] VITALS: BMI 24.0
--- OUTSIDE RECORDS SUMMARY | 2023-02-08 09:00 | XMS RPT_ITS | CCD ---
Author Name Unknown Address [address] [place] [address] Organization [facility] Care Team Providers Care Operator Assistant I [employer]ement[employer] Name Role Phone CASIMIRO PRATT, MARS Primary Care Physician [phone] Casimiro VENEGAS, Mars K Primary Care Provider Casimiro VENEGAS, Mars K Primary Care Provider ENRIQUETA MEDRANO-RAG CUTTING MACHINE OPERATOR, ANAHY Primary Care Physicia n ANGY MACK, RONI Martínez Attending Unavailable CASIMIRO MEDRANO-RUBI, MARS Primary Care Unavailab tomasz HIDALGO MD, DR OWENS Attending Unavailliane FISHER APRN-RAG CUTTING MACHINE OPERATOR, ANAHY Primary Care Unava ilable TATA HAMMOND DO Attending Unavailable KIRKPATRICK MITCHELL-RAG CUTTING MACHINE OPERATOR, MARS Primary Care Unavailab tomasz Fisher [employer], Anahy Unavailable [phone] GAYATHRI AC Attending Unavailable KIRKPATRICK, MARS K Primary Care Unavailable EMILY MARQUES Referring Unavailable KIRKPATRICK, MARS K Primary Care Unavailable KIRKPATRICK, MARS K Primary Care Unavailable SVETLANA SIMENTAL Attending Unavailable Allergies Allergy Classification Reported Allergen(s) Allergy Type Date of Onset Reaction(s) Facility (4 sources) Penicillin; Translations: [penicillins] Drug Allergy [facility] (8 sources) Lisinopril; Translations: [lisinopril] Drug Allergy 01-13-2018 Cough [facility] Work Phone: (6 sources) Penicillins; Translations: [PENICILLINS] Drug Allergy 1972 Other: See Comments [facility] Work Phone: Medications Current Medications Medication Drug Class(es) Dates Sig (Normalized) Sig (Original) acetaminophen 325 mg / HYDROcodone bitartrate 5 mg oral tablet (2 sources) Opioid Agonist Start: 12-19-2022 End: 12-21-2022 take 1 tablet by mouth every six hours as needed for pain Mckinney 325- 5 mg oral tablet Dose = 1 tab(s), Oral, q6h, PRN as needed for pain, X 2 day(s), # 8 tab(s), 0 Refill(s), Rib pain, 62 Start Date: 12/19/22 Stop Date: 12/21/22 Status: Ordered Completed/Discontinued Medications Medication Drug Class(es) Dates Sig (Normalized) Sig (Original) ascorbic acid 1000 mg oral tablet (5 sources) Vitamin C Start: 10-31-2020 Ascorbic Acid 1,000 mg tablet Take by mouth. 0 10/31/2020 Active Problems Active Problems Problem Classification Problem Date Documented Date Episodic/Chronic Disorders of teeth and jaw (2 sources) Disorder of teeth AND/OR supporting structures; Translations: [Other specified disorders of teeth and supporting structures] Onset: 08-02-2021 Episodic Fracture of lower limb (1 source) Closed fracture of phalanx of foot; Translations: [Unspecified fracture of unspecified toe(s), initial encounter for closed fracture] Onset: 08-19-2022 Episodic Joint disorders and dislocations; trauma-related (1 source) Patellofemoral syndrome of right knee; Translations: [Patellofemoral disorders, right knee] Chronic Mycoses (2 sources) Onychomycosis; Translations: [Tinea unguium] Episodic Other lower respiratory disease (1 source) Pleuritic pain; Translations: [Pleurodynia] Onset: 12-19-2022 Episodic Past or Other Problems Problem Classification Problem Date Documented Da te Episodic/Chronic Other non-traumatic joint disorders (4 sources) Pain in right knee; Translations: [Pain in joint, lower leg] Onset: 03-18-2022 Episodic Other non-traumatic joint disorders (1 source) Knee pain Onset: 03-18-2022 Episodic Results Test Name Value Interpretation Reference Range Facil ity Vital Signs Date Time Vital Sign Value Performing Clinician Faci lity 12-19-2022 11:30-0500 Body height 167.[address] ROMAN HIDALGO MD [facility] 12-19-2022 11:30-0500 Body temperature 98.6 [degF] DR ROMAN HIDALGO MD [facility] 12-19-2022 11:30-0500 Body weight [address] ROMAN HIDALGO MD [facility] 12-19-2022 11:30-0500 Diastolic Blood Pressure Non-Invasive [address] ROMAN HIDALGO MD [facility] 12-19-2022 11:30-0500 Heart rate 72 /min DR ROMAN HIDALGO MD [facility] 12-19-2022 11:30-0500 Respiratory rate 16 /min DR ROMAN HIDALGO MD [facility] 12-19-2022 11:30-0500 Systolic Blood Pressure Non-Invasive [address] ROMAN HIDALGO MD [facility] 08-19-2022 16:23-0400 Blood Pressure Location TATA REICHFIELD DO [facility] 08-19-2022 16:23-0400 Blood Pressure Method TATA REICHFIELD D O [facility] 08-19-2022 16:23-0400 Body temperature 97.88 [degF] TATA REICHFIELD DO [facility] 08-19-2022 16:23-0400 Diastolic Blood Pressure Non-Invasive 89 1 TATA REICHFIELD DO [facility] 08-19-2022 16:23-0400 Heart rate 89 /min TATA REICHFIELD DO [facility] 08-19-2022 16:23-0400 Respiratory rate 18 /min TATA REICHFIELD DO [facility] 08-19-2022 16:23-0400 Systolic Blood Pressure Non-Invasive 150 1 [facility] DO [facility] 08-11-2021 13:16-0400 Body height 167.6 cm GONZALEZ CONNER MD [facility] 08-11-2021 13:16-0400 Body temperature 98.42 [degF] GONZALEZ CONNER MD [facility] 08-11-2021 13:16-0400 Body weight 75 kg GONZALEZ CONNER MD [facility] 08-11-2021 13:16-0400 Diastolic blood pressure 87 mm[Hg] GONZALEZ CONNER MD [facility] 08-11-2021 13:16-0400 Heart rate 87 /min GONZALEZ CONNER MD [facility] 08-11-2021 13:16-0400 Respiratory rate 18 /min GONZALEZ CONNER MD [facility] 08-11-2021 13:16-0400 Systolic blood pressure 146 mm[Hg] GONZALEZ CONNER MD [facility] 08-02-2021 00:22-0400 Body height 167.6 cm MARYELLEN JIMÉNEZ MD [facility] 08-02-2021 00:22-0400 Body temperature 97.88 [degF] MARYELLEN JIMÉNEZ MD [facility] 08-02-2021 00:22-0400 Body weight 75 kg MARYELLEN JIMÉNEZ MD [facility] 08-02-2021 00:22-0400 Diastolic blood pressure 86 mm[Hg] MARYELLEN JIMÉNEZ MD [facility] 08-02-2021 00:22-0400 Heart rate 88 /min MARYELLEN JIMÉNEZ MD [facility] 08-02-2021 00:22-0400 Respiratory rate 18 /min MARYELLEN JIMÉNEZ MD [facility] 08-02-2021 00:22-0400 Systolic blood pressure 147 mm[Hg] MARYELLEN JIMÉNEZ MD [facility] Encounters Encounter Date Encounter Type Care Provider Facility Start: 01-07-2023 End: 01-07-2023 ambulatory [facility] Facility:[facility] Start: 01-07-2023 End: 01-07-2023 Patient encounter procedure Gayathri Ac Work Phone: Podiatry Procedures Date Procedure Procedure Detail Performing Clinician Start: 03-18-2022 Arthrocentesis aspir &/inj major jt/bursa w/o Svetlana Simental PA-C Work Phone: Start: 03-18-2022 Radiologic exam knee complete 4/more views Emily Marques MD Work Phone: Plan of Treatment Date Care Activity Detail Author Start: 06-21-2026 HPV TESTING HPV TESTING [facility] Start: 06-21-2026 PAP TESTING PAP TESTING [facility] Start: 10-11-2022 Influenza vaccination Influenza Vaccine (#1) [facility] Start: 02-10-2022 DEPRESSION ASSESSMENT DEPRESSION ASSESSMENT [facility] Start: 02-04-2022 SHINGRIX VACCINE (1 of 2) SHINGRIX VACCINE (1 of 2) [facility] Start: 10-11-2021 Influenza vaccination INFLUENZA (#1) [facility] Start: 02-04-2017 COLOGUARD (FIT-DNA) COLOGUARD (FIT-DNA) [facility] Start: 02-04-2017 Colonoscopy COLONOSCOPY [facility] Start: 02-04-2017 COLORECTAL CANCER SCREENING COLORECTAL CANCER SCREENING [facility] Start: 02-04-[address] COLONOGRAPHY [facility] Start: 02-04-2017 DIABETES SCREEN DIABETES SCREEN [facility] Start: 02-04-2017 Diabetes Screening Diabetes Screening [facility] Start: 02-04-2017 FECAL OCCULT BLOOD FECAL OCCULT BLOOD [facility] Start: 02-04-2017 Lipid 1996 panel - Serum or Plasma Lipid Screening [facility] Start: 02-04-2017 LIPID SCREEN LIPID SCREEN [facility] Start: 02-04-2017 SIGMOIDOSCOPY SIGMOIDOSCOPY [facility] Start: 2012 Mammography [facility] Start: 02-04-1991 Urine microalbumin profile [facility] Start: 02-04-1990 HEPATITIS C SCREENING HEPATITIS C SCREENING [facility] Start: 02-04-1990 HIV SCREENING HIV SCREENING [facility] Start: 1984 Adult depression screening assessment DEPRESSION SCREENING [facility] Start: 02-04-1978 PNEUMOCOCCAL (1 - PCV) PNEUMOCOCCAL (1 - PCV) [facility] Start: 02-04-1978 Pneumococcal vaccination Pneumococcal Vaccine (1 - PCV) [facility] Start: 1972 COVID-19 VACCINE (#1) COVID-19 VACCINE (#1) [facility] Start: 1972 HEPATITIS B (1 of 3 - 3-dose series) HEPATITIS B (1 of 3 - 3-dose series) [facility] Start: 1972 Hepatitis B Vaccine (1 of 3 - 3-dose series) Hepatitis B Vaccine (1 of 3 - 3-dose series) [facility] FUNGAL CULTURE AND SMEAR-HAIR,SKIN,NAIL FUNGAL CULTURE AND SMEAR-HAIR,SKIN,NAIL Microbiology Routine Onychomycosis Ordered: 09/10/2021 [facility] Work Phone: Payers Date Payer Category Payer Unknown [id number] 2021 Unknown [id number] 2021 Unknown [id number] 2020 Medicaid [employer] [facility] MEDICAID [id number] 2020-Present [phone] [address] [place] [address] Medicaid [id number] 2020 Medicaid [id number] 1972 Unknown [id number] 1972 Unknown [id number] 1972 Unknown [id number] Social History Date Type Detail Facility Start: 08-02-2021 Tobacco smoking status Light t obacco smoker (finding) [facility] Start: 1970 Sex Assigned At Female [facility] Start: 09-10-2021 [facility] Work Phone: History of tobacco use Cigarette Smoker [facility] Work Phone: Start: 09-10-2021 End: 03-18-2022 Cigarettes smoked current (pack per day) - Reported 1 [facility] Start: 09-10-2021 Tobacco use and exposure Smokeless tobacco non-user [facility] Work Phone: Start: 09-10-2021 End: 03-18-2022 Alcohol intake Current drinker of alcohol (finding) [facility] Start: 09-10-2021 History SDOH Alcohol Comment occ. [facility] Start: 08-31-2021 End: 09-10-2021 Exposure to SARS-CoV-2 (event) Not sure [facility] Work Phone: Start: 03-18-2022 Tobacco use panel [facility] Start: 09-03-2021 Gender identity Identifies as female gender (finding) [facility] Start: 09-03-2021 Sexual orientation Heterosexual (antoine mei) [facility] Functional Status Date Assessment Result Facility 12-19-2022 Functional Status Independent [facility] 08-19-2022 Functional Status Independent [facility] 08-19-2022 Functional Status ID band on, Allergy Band on, Call device within reach, Bed in low position, Wheels locked, Upper/Half-Length side-rails up [facility] 08-11-2021 Functional Status Independent [facility] 08-11-2021 Functional Status Resting [facility] 08-02-2021 Functional Status Ambulating in julio, Ambulating in room, Awake [facility] Mental Status Date Assessment Result Facility 12-19-2022 Mental Status Orientation Oriented x 4 [facility] 08-19-2022 Mental Status Orientation Oriented x 4 [facility] 08-19-2022 Mental Status [facility] 08-11-2021 Mental Status Orientation Oriented x 4 [facility] 08-11-2021 Mental Status [facility] Mental Status Oriented x 4 [facility] Clinical Notes 08-02-2021 to 01-07-2023 Gayathri Ac - 01/07/2023 9:59 AM Lina Aguirre RN - 01/07/2023 9:33 AM Tom Simental PA-C - 03/18/2022 12:05 PM Eulogio Barrett Ma - 03/18/2022 11:25 AM EST Note Date & Type Note Facility 01-07-2023 Note HNO ID: [id number] Author: AnnaCocoew Service: ? Author Type: Physician Type: Progress Notes Filed: 01/07/2023 10:00 AM Note Text: FOLLOW UP PODIATRIC OFFICE VISIT Chief Complaint: This 52 year old who presents for follow up:b/lhallux nail discoloration Patient presents to clinic for follow-up nail discoloration Is using topical agent and feels it is improving. PAIN EVALUATION No data found in the last 1 encounters. No results found for: HBA1C PCP: Mars Kirkpatrick CNP PAST MEDICAL HISTORY Diagnosis Date Essential hypertension Heart attack (HCC) High cholesterol Current Outpatient Medications Medication Sig busPIRone (BUSPAR) 15 mg tablet aspirin, enteric coated (ASPIRIN, ENTERIC COATED) 81 mg EC tablet Take 81 mg by mouth. atorvastatin (LIPITOR) 40 mg tablet Take 40 mg by mouth daily at bedtime. carvedilol (COREG) 3.125 mg tablet Take 3.125 mg by mouth twice daily. Ascorbic Acid 1,000 mg tablet Take by mouth. Cholecalciferol, Vitamin D3, 125 mcg (5,000 unit) cap Take by mouth. (Patient not taking: Reported on 01/07/2023) hydrOXYzine pamoate (VISTARIL) 25 mg capsule Take by mouth. Zinc Acetate, Oral, 50 mg (zinc) cap Take by mouth. (Patient not taking: Reported on 01/07/2023) No current facility-administered medications for this visit. ALLERGIES Allergen Reactions Lisinopril Cough Penicillins Other: See Comments PAST SURGICAL HISTORY Procedure Laterality Date SECTION HX LIGATE FALLOPIAN TUBE REMOVAL GALLBLADDER REVISE MEDIAN N/CARPAL TUNNEL SURG Left TMJ Left VAGINAL HYSTERECTOMY Physical Exam: OBJECTIVE: Constitutional: Pt is a well developed 52 year old female who is alert, oriented, cooperative and in no apparent distress. Eyes: Following during examination. No redness or drainage. Respiratory: RR normal and nonlabored. Even breathing. No evidence of distress. Psychology: Patient is engaged during conversation. Normal affect and mood. Does not appear depressed or anxious. NVSI unchanged from previous visit. Dermatological: B/l hallux nail shows slight discoloration. Discoloration appears to be more distal and proximal there is clearing. ASSESSMENT: Onychomycosis (primary encounter diagnosis) PLAN: We discussed the possible etiologies of discolored, dystrophic, and thickened nails including fungus, yeast, mold as well as in some instances, prior trauma, or mechanical causes such as repetitive microtrauma in shoe gear. We discussed topical medication for discolored toenails which has very low success but no major side effects. We discussed oral medication. Patient will need hepatic testing prior to use. Patient informed of risks associated with Lamisil. We discussed removal of toenails. Patient would like to proceed with continued topical care If she desires lamisil in the future (orally) she will contact us. Gayathri Ac DPM [facility] 01-07-2023 Note HNO ID: [id number] Author: Lina Roy RN Service: ? Author Type: Registered Nurse Type: Progress Notes Filed: 01/07/2023 10:00 AM Note Text: Patient presents with: Right Foot - Established Patient: toenail fungus Left Foot - Established Patient: toenail fungus AMB ROOMING INTAKE FLOWSHEET DATA Risk Screening Do you have concerns about personal safety or safety in the home?: No [facility] 01-07-2023 History of Present illness Narrative FOLLOW UP PODIATRIC OFFICE VISIT Chief Complaint: This 52 year old who presents for follow up:b/lhallux nail discoloration Patient presents to clinic for follow-up nail discoloration Is using topical agent and feels it is improving. PAIN EVALUATION No data found in the last 1 encounters. No results found for: HBA1C PCP: Mars Kirkpatrick CNP PAST MEDICAL HISTORY Diagnosis Date Essential hypertension Heart attack (HCC) High cholesterol Current Outpatient Medications Medication Sig busPIRone (BUSPAR) 15 mg tablet aspirin, enteric coated (ASPIRIN, ENTERIC COATED) 81 mg EC tablet Take 81 mg by mouth. atorvastatin (LIPITOR) 40 mg tablet Take 40 mg by mouth daily at bedtime. carvedilol (COREG) 3.125 mg tablet Take 3.125 mg by mouth twice daily. Ascorbic Acid 1,000 mg tablet Take by mouth. Cholecalciferol, Vitamin D3, 125 mcg (5,000 unit) cap Take by mouth. (Patient not taking: Reported on 01/07/2023) hydrOXYzine pamoate (VISTARIL) 25 mg capsule Take by mouth. Zinc Acetate, Oral, 50 mg (zinc) cap Take by mouth. (Patient not taking: Reported on 01/07/2023) No current facility-administered medications for this visit. ALLERGIES Allergen Reactions Lisinopril Cough Penicillins Other: See Comments PAST SURGICAL HISTORY Procedure Laterality Date SECTION HX LIGATE FALLOPIAN TUBE REMOVAL GALLBLADDER REVISE MEDIAN N/CARPAL TUNNEL SURG Left TMJ Left VAGINAL HYSTERECTOMY Physical Exam: OBJECTIVE: Constitutional: Pt is a well developed 52 year old female who is alert, oriented, cooperative and in no apparent distress. Eyes: Following during examination. No redness or drainage. Respiratory: RR normal and nonlabored. Even breathing. No evidence of distress. Psychology: Patient is engaged during conversation. Normal affect and mood. Does not appear depressed or anxious. NVSI unchanged from previous visit. Dermatological: B/l hallux nail shows slight discoloration. Discoloration appears to be more distal and proximal there is clearing. ASSESSMENT: Onychomycosis (primary encounter diagnosis) PLAN: We discussed the possible etiologies of discolored, dystrophic, and thickened nails including fungus, yeast, mold as well as in some instances, prior trauma, or mechanical causes such as repetitive microtrauma in shoe gear. We discussed topical medication for discolored toenails which has very low success but no major side effects. We discussed oral medication. Patient will need hepatic testing prior to use. Patient informed of risks associated with Lamisil. We discussed removal of toenails. Patient would like to proceed with continued topical care If she desires lamisil in the future (orally) she will contact us. Gayathri Ac DPM Patient presents with: Right Foot - Established Patient: toenail fungus Left Foot - Established Patient: toenail fungus AMB ROOMING INTAKE FLOWSHEET DATA Risk Screening Do you have concerns about personal safety or safety in the home?: No documented in this encounter [facility] 12-19-2022 Hospital Discharge instructions Patient Education 12/19/2022 12:20:27 Chest Wall Pain, Costochondritis Chest Wall Pain: Costochondritis The chest pain that you have had today is caused by costochondritis. This condition is caused by an inflammation of the cartilage joining your ribs to your breastbone. It is not caused by heart or lung problems. Your healthcare team has made sure that the chest pain you feel is not from a life threatening cause of chest pain such as heart attack, collapsed lung, blood clot in the lung, tear in the aorta, or esophageal rupture. The inflammation may have been brought on by a blow to the chest, lifting heavy objects, intense exercise, or an illness that made you cough and sneeze a lot. It often occurs during times of emotional stress. It can be painful, but it is not dangerous. It usually goes away in 1 to 2 weeks. But it may happen again. Rarely, a more serious condition may cause symptoms similar to costochondritis. That s why it s important to watch for the warning signs listed below. Home care Follow these guidelines when caring for yourself at home: If you feel that emotional stress is a cause of your condition, try to figure out the sources of that stress. It may not be obvious. Learn ways to deal with the stress in your life. This can include regular exercise, muscle relaxation, meditation, or simply taking time out for yourself. You may use acetaminophen, ibuprofen, or naproxen to control pain, unless another pain medicine was prescribed. If you have liver or kidney disease or ever had a stomach ulcer, talk with your healthcare provider before using these medicines. You can also help ease pain by using a hot, wet compress or heating pad. Use this with or without a medicated skin cream that helps relieves pain. Do stretching exercise as advised by your provider. Take any prescribed medicines as directed. Follow-up care Follow up with your healthcare provider, or as advised, if you do not start to get better in the next 2 days. When to seek medical advice Call your healthcare provider right away if any of these occur: A change in the type of pain. Call if it feels different, becomes more serious, lasts longer, or spreads into your shoulder, arm, neck, jaw, or back. Shortness of breath or pain gets worse when you breathe Weakness, dizziness, or fainting Cough with dark-colored sputum (phlegm) or blood Abdominal pain Dark red or black stools Fever of 100.4 F (38 C) or higher, or as directed by your healthcare provider [id number] [employer]. [address] [place] [address]. All rights reserved. This information is not intended as a substitute for professional medical care. Always follow your healthcare professional's instructions. Follow Up Care 12/19/2022 10:51:17 With:ANAHY FISHER Address: [place] [address] [phone] Business (1) When:2-4 days Comments:Follow-up closely with your doctor as discussed, return if any worsening or concerning symptoms. [facility] 12-19-2022 Note Discharge Instructions Thank you for allowing [facility] to assist you with your healthcare needs. The following is important discharge information regarding your hospital visit. Diagnosis from Today's Visit Rib pain Rib/trunk pain-swelling What to Do Next Instructions from Your Care Team Discharge Return to Work, School, or Sports (Return to Work, School, or Sports) - Ordered -- 12/23/22, May return to: work, 12/19/22 12:20:00 EST Post Acute Orders No qualifying data available. You Need to Schedule the Following Appointments Follow Up with ANAHY FISHER When Within 2-4 days Why: Follow-up closely with your doctor as discussed, return if any worsening or concerning symptoms. Where: [address] [place] [address]- [phone] Business (1) Allergies lisinopril penicillin Medications Please ask your primary doctor or pharmacist before taking any other medication not listed, including over the counter drugs, herbal medications, vitamins and or supplements as they may interact with your home medications. What How Much When Why Instructions Last Dose New acetaminophen-hydrocodone (Mckinney 325- 5 mg oral tablet) 1 tab(s) by mouth Every 6 hours as needed for as needed for pain Rib pain Duration: 2 Days Printed Prescription New diclofenac topical (diclofenac 1% topical gel) 2 gram(s) Topical Four (4) times a day as needed for as needed for pain Duration: 7 Days Printed Prescription Unchanged atorvastatin (atorvastatin 40 mg oral tablet) 1 tab(s) by mouth Once a day Unchanged carvedilol (carvedilol 3.125 mg oral tablet) 1 tab(s) by mouth Twice daily with meals Unchanged clindamycin (clindamycin 300 mg oral capsule) 1 cap by mouth Every 6 hours Duration: 10 Days Unchanged hydrOXYzine (hydrOXYzine pamoate 25 mg oral capsule) TAKE 1 CAPSULE EVERY DAY AT BEDTIME Unchanged propranolol (propranolol 120 mg oral capsule, extended release) 1 cap by mouth Every day Please take this list to your next doctor s visit. Bring all medications you take, including over the counter medications, herbals and other supplements with you to your doctor s visit. Patients and families are reminded to discard old lists and to update any records with all medication providers or retail pharmacies. Medication Leaflets acetaminophen and hydrocodone (a SEET a MIN oh fen and simran BARRETO done) Lortab Elixir, Verdrocet What is the most important information I should know about acetaminophen and hydrocodone? MISUSE OF OPIOID MEDICINE CAN CAUSE ADDICTION, OVERDOSE, OR . Keep the medication in a place where others cannot get to it. Taking opioid medicine during may cause life-threatening withdrawal symptoms in the . Fatal side effects can occur if you use opioid medicine with alcohol, or with other drugs that cause drowsiness or slow your breathing. Stop taking this medicine and call your doctor right away if you have skin redness or a rash that spreads and causes blistering and peeling. What is acetaminophen and hydrocodone? Acetaminophen and hydrocodone is a combination medicine used to relieve moderate to severe pain. Acetaminophen and hydrocodone contains an opioid medicine, and may be habit-forming. Acetaminophen and hydrocodone may also be used for purposes not listed in this medication guide. What should I discuss with my healthcare provider before taking acetaminophen and hydrocodone? You should not use this medicine if you are allergic to acetaminophen or hydrocodone, or if you have: severe asthma or breathing problems; or a blockage in your stomach or intestines. Tell your doctor if you have ever had: breathing problems, sleep apnea (breathing stops during sleep); liver disease; a drug or alcohol addiction; kidney disease; a head injury or seizures; urination problems; or problems with your thyroid, pancreas, or gallbladder. If you use opioid medicine while you are , your baby could become dependent on the drug. This can cause life-threatening withdrawal symptoms in the baby after it is born. Babies born dependent on opioids may need medical treatment for several weeks. Ask a doctor before using opioid medicine if you are . Tell your doctor if you notice severe drowsiness or slow breathing in the nursing baby. How should I take acetaminophen and hydrocodone? Follow all directions on your prescription label. Never take this medicine in larger amounts, or for longer than prescribed. An overdose can damage your liver or cause . Tell your doctor if you feel an increased urge to use more of this medicine. Never share this medicine with another person, especially someone with a history of drug abuse or addiction. MISUSE CAN CAUSE ADDICTION, OVERDOSE, OR . Keep the medicine in a place where others cannot get to it. Selling or giving away this medicine is against the law. Measure liquid medicine carefully. Use the dosing syringe provided, or use a medicine dose-measuring device (not a kitchen spoon). If you need surgery or medical tests, tell the doctor ahead of time that you are using this medicine. You should not stop using this medicine suddenly. Follow your doctor's instructions about tapering your dose. Store at room temperature away from moisture and heat. Keep track of your medicine. You should be aware if anyone is using it improperly or without a prescription. Do not keep leftover opioid medication. Just one dose can cause in someone using this medicine accidentally or improperly. Ask your pharmacist where to locate a drug take-back disposal program. If there is no take-back program, flush the unused medicine down the toilet. What happens if I miss a dose? Since this medicine is used for pain, you are not likely to miss a dose. Skip any missed dose if it is almost time for your next dose. Do not use two doses at one time. What happens if I overdose? Seek emergency medical attention or call the Poison Help line at . An overdose of this medicine can be fatal, especially in a child or other person using the medicine without a prescription. Overdose symptoms may include nausea, vomiting, sweating, severe drowsiness, pinpoint pupils, slow breathing, or no breathing. Your doctor may recommend you get naloxone (a medicine to reverse an opioid overdose) and keep it with you at all times. A person caring for you can give the naloxone if you stop breathing or don't wake up. Your caregiver must still get emergency medical help and may need to perform CPR (cardiopulmonary resuscitation) on you while waiting for help to arrive. Anyone can buy naloxone from a pharmacy or local health department. Make sure any person caring for you knows where you keep naloxone and how to use it. What should I avoid while taking acetaminophen and hydrocodone? Avoid driving or operating machinery until you know how this medicine will affect you. Dizziness or drowsiness can cause falls, accidents, or severe injuries. Do not drink alcohol. Dangerous side effects or could occur. Ask a doctor or pharmacist before using any other medicine that may contain acetaminophen (sometimes abbreviated as APAP). Taking certain medications together can lead to a fatal overdose. What are the possible side effects of acetaminophen and hydrocodone? Get emergency medical help if you have signs of an allergic reaction: hives; difficulty breathing; swelling of your face, lips, tongue, or throat. Opioid medicine can slow or stop your breathing, and may occur. A person caring for you should give naloxone and/or seek emergency medical attention if you have slow breathing with long pauses, blue colored lips, or if you are hard to wake up. In rare cases, acetaminophen may cause a severe skin reaction that can be fatal. This could occur even if you have taken acetaminophen in the past and had no reaction. Stop taking this medicine and call your doctor right away if you have skin redness or a rash that spreads and causes blistering and peeling. Call your doctor at once if you have: noisy breathing, sighing, shallow breathing, breathing that stops; a light-headed feeling, like you might pass out; liver problems--nausea, upper stomach pain, tiredness, loss of appetite, dark urine, rayne-colored stools, jaundice (yellowing of the skin or eyes); low cortisol levels-- nausea, vomiting, loss of appetite, dizziness, worsening tiredness or weakness; o high levels of serotonin in the body--agitation, hallucinations, fever, sweating, shivering, fast heart rate, muscle stiffness, twitching, loss of coordination, nausea, vomiting, diarrhea. Serious breathing problems may be more likely in older adults and in those who are debilitated or have wasting syndrome or chronic breathing disorders. Common side effects include: dizziness, drowsiness, feeling tired; nausea, vomiting, stomach pain; constipation; or headache. This is not a complete list of side effects and others may occur. Call your doctor for medical advice about side effects. You may report side effects to FDA at 2-269-ULT-2448. What other drugs will affect acetaminophen and hydrocodone? You may have breathing problems or withdrawal symptoms if you start or stop taking certain other medicines. Tell your doctor if you also use an antibiotic, antifungal medication, heart or blood pressure medication, seizure medication, or medicine to treat HIV or hepatitis C. Opioid medication can interact with many other drugs and cause dangerous side effects or . Be sure your doctor knows if you also use: cold or allergy medicines, bronchodilator asthma/COPD medication, or a diuretic ('water pill'); medicines for motion sickness, irritable bowel syndrome, or overactive bladder; other opioids--opioid pain medicine or prescription cough medicine; a sedative like Valium--diazepam, alprazolam, lorazepam, Xanax, Klonopin, Versed, and others; drugs that make you sleepy or slow your breathing--a sleeping pill, muscle relaxer, medicine to treat mood disorders or mental illness; drugs that affect serotonin levels in your body--a stimulant, or medicine for depression, Parkinson's disease, migraine headaches, serious infections, or nausea and vomiting. This list is not complete. Other drugs may affect acetaminophen and hydrocodone, including prescription and [id number]-[id number] medicines, vitamins, and herbal products. Not all possible interactions are listed here. Where can I get more information? Your doctor or pharmacist can provide more information about acetaminophen and hydrocodone. Remember, keep this and all other medicines out of the reach of children, never share your medicines with others, and use this medication only for the indication prescribed. Every effort has been made to ensure that the information provided by [employer]. [employer]') is accurate, up-to-date, and complete, but no guarantee is made to that effect. Drug information contained herein may be time sensitive. [employer] information has been compiled for use by healthcare practitioners and consumers in the [place] and therefore [employer] does not warrant that uses outside of the [place] are appropriate, unless specifically indicated otherwise. [employer] drug information does not endorse drugs, diagnose patients or recommend therapy. [employer] drug information is an informational resource designed to assist licensed healthcare practitioners in caring for their patients and/or to serve consumers viewing this service as a supplement to, and not a substitute for, the expertise, skill, knowledge and judgment of healthcare practitioners. The absence of a warning for a given drug or drug combination in no way should be construed to indicate that the drug or drug combination is safe, effective or appropriate for any given patient. [facility] does not assume any responsibility for any aspect of healthcare administered with the aid of information [facility] provides. The information contained herein is not intended to cover all possible uses, directions, precautions, warnings, drug interactions, allergic reactions, or adverse effects. If you have questions about the drugs you are taking, check with your doctor, nurse or pharmacist. Copyright 5886-7994 [facility] [employer]. Version: 19.. Revision Date: 09/30/2022. diclofenac topical (dye KLOE fen ak TOP ik al) Aspercreme Arthritis Pain, DicloPrep-100, Motrin Arthritis Pain, Pennsaid, Rexaphenac, Salonpas Arthritis Pain Relief, Voltaren Arthritis Pain What is the most important information I should know about diclofenac topical? Diclofenac topical can increase your risk of fatal heart attack or stroke. Do not use this medicine just before or after heart bypass surgery (coronary artery bypass graft, or CABG). Diclofenac topical may also cause stomach or intestinal bleeding, which can be fatal. What is diclofenac topical? Diclofenac is a nonsteroidal anti-inflammatory drug (NSAID). Diclofenac topical (for the skin) is used to treat joint pain caused by osteoarthritis. This medicine is for use on the hands, wrists, elbows, knees, ankles, or feet. Diclofenac topical may not be effective in treating arthritis pain elsewhere in the body. Pennsaid is for use only on the knees. Solaraze is used to treat warty overgrowths of skin (actinic keratoses) on sun-exposed areas of the body. Diclofenac topical may also be used for purposes not listed in this medication guide. What should I discuss with my healthcare provider before using diclofenac topical? Diclofenac topical can increase your risk of fatal heart attack or stroke, even if you don't have any risk factors. Do not use this medicine just before or after heart bypass surgery (coronary artery bypass graft, or CABG). Diclofenac topical may also cause stomach or intestinal bleeding, which can be fatal. These conditions can occur without warning while you are using diclofenac topical, especially in older adults. You should not use this medicine if you are allergic to diclofenac (Voltaren, Cataflam, Flector, and others), or if you have ever had an asthma attack or severe allergic reaction after taking aspirin or an NSAID. Diclofenac topical is not approved for use by anyone younger than 18 years old. Tell your doctor if you have ever had: heart disease, high blood pressure, high cholesterol, diabetes, or if you smoke; a heart attack, stroke, or blood clot; stomach ulcers, bleeding in your stomach or intestines; asthma; liver or kidney disease; or fluid retention. Diclofenac can affect ovulation and it may be harder to get while you are using this medicine. If you are , you should not take diclofenac topical unless your doctor tells you to. Taking an NSAID during the last 20 weeks of can cause serious heart or kidney problems in the unborn baby and possible complications with your . It may not be safe to breastfeed while using this medicine. Ask your doctor about any risk. How should I use diclofenac topical? Follow all directions on your prescription label and read all medication guides. Use the lowest dose that is effective in treating your condition. Do not take by mouth. Topical medicine is for use only on the skin. Rinse with water if this medicine gets in your eyes or mouth. Read and carefully follow any Instructions for Use provided with your medicine. Ask your doctor or pharmacist if you do not understand these instructions. Do not apply diclofenac topical to an open skin wound, or on areas of infection, rash, burn, or peeling skin. Store at room temperature away from moisture and heat. Do not freeze. What happens if I miss a dose? Apply the medicine as soon as you can, but skip the missed dose if it is almost time for your next dose. Do not apply two doses at one time. What happens if I overdose? Seek emergency medical attention or call the Poison Help line at . What should I avoid while using diclofenac topical? Ask a doctor or pharmacist before using other medicines for pain, fever, swelling, or cold/flu symptoms. They may contain ingredients similar to diclofenac (such as aspirin, ibuprofen, ketoprofen, or naproxen). Avoid drinking alcohol. It may increase your risk of stomach bleeding. Avoid exposing treated skin to heat, sunlight, or tanning beds. Heat can increase the amount of diclofenac you absorb through your skin. Avoid getting this medicine in your eyes. If contact does occur, rinse with water. Call your doctor if you have eye irritation that lasts longer than 1 hour. Do not use cosmetics, sunscreen, lotions, insect repellant, or other medicated skin products on the same area you treat with diclofenac topical. What are the possible side effects of diclofenac topical? Get emergency medical help if you have signs of an allergic reaction (hives, sneezing, runny or stuffy nose, wheezing or trouble breathing, swelling in your face or throat) or a severe skin reaction (fever, sore throat, burning eyes, skin pain, red or purple skin rash with blistering and peeling). Stop using diclofenac and seek medical treatment if you have a serious drug reaction that can affect many parts of your body. Symptoms may include skin rash, fever, swollen glands, muscle aches, severe weakness, unusual bruising, or yellowing of your skin or eyes. Stop using diclofenac and seek emergency medical attention if you have signs of a heart attack or stroke: chest pain spreading to your jaw or shoulder, sudden numbness or weakness on one side of the body, slurred speech, feeling short of breath. Also call your doctor at once if you have: a skin rash, no matter how mild; swelling, rapid weight gain; severe headache, blurred vision, pounding in your neck or ears; little or no urination; liver problems--nausea, diarrhea, stomach pain (upper right side), tiredness, itching, dark urine, rayne-colored stools, jaundice (yellowing of the skin or eyes); low red blood cells (anemia)--pale skin, unusual tiredness, feeling light-headed or short of breath, cold hands and feet; or signs of stomach bleeding--bloody or tarry stools, coughing up blood or vomit that looks like coffee grounds. Common side effects may include: heartburn, gas, stomach pain, nausea, vomiting; diarrhea, constipation; headache, dizziness, drowsiness; stuffy nose; itching, increased sweating; increased blood pressure; or skin redness, itching, dryness, scaling, or peeling where the medicine was applied. This is not a complete list of side effects and others may occur. Call your doctor for medical advice about side effects. You may report side effects to FDA at 5-785-CRZ-0013. What other drugs will affect diclofenac topical? Ask your doctor before using diclofenac if you take an antidepressant. Taking certain antidepressants with an NSAID may cause you to bruise or bleed easily. Tell your doctor about all your current medicines, especially: cyclosporine; lithium; methotrexate; a blood thinner (warfarin, Coumadin, Jantoven); heart or blood pressure medication, including a diuretic or 'water pill'; or steroid medicine (prednisone and others). This list is not complete and many other drugs may affect diclofenac. This includes prescription and [id number]-[id number] medicines, vitamins, and herbal products. Not all possible drug interactions are listed here. Where can I get more information? Your pharmacist can provide more information about diclofenac topical. Remember, keep this and all other medicines out of the reach of children, never share your medicines with others, and use this medication only for the indication prescribed. Every effort has been made to ensure that the information provided by [employer]. [employer]') is accurate, up-to-date, and complete, but no guarantee is made to that effect. Drug information contained herein may be time sensitive. [employer] information has been compiled for use by healthcare practitioners and consumers in the [place] and therefore [employer] does not warrant that uses outside of the [place] are appropriate, unless specifically indicated otherwise. [employer] drug information does not endorse drugs, diagnose patients or recommend therapy. [employer] drug information is an informational resource designed to assist licensed healthcare practitioners in caring for their patients and/or to serve consumers viewing this service as a supplement to, and not a substitute for, the expertise, skill, knowledge and judgment of healthcare practitioners. The absence of a warning for a given drug or drug combination in no way should be construed to indicate that the drug or drug combination is safe, effective or appropriate for any given patient. [employer] does not assume any responsibility for any aspect of healthcare administered with the aid of information [employer] provides. The information contained herein is not intended to cover all possible uses, directions, precautions, warnings, drug interactions, allergic reactions, or adverse effects. If you have questions about the drugs you are taking, check with your doctor, nurse or pharmacist. Copyright 9168-7653 [employer]. Version: 13.. Revision Date: 09/13/2022. Education Materials Chest Wall Pain: Costochondritis The chest pain that you have had today is caused by costochondritis. This condition is caused by an inflammation of the cartilage joining your ribs to your breastbone. It is not caused by heart or lung problems. Your healthcare team has made sure that the chest pain you feel is not from a life threatening cause of chest pain such as heart attack, collapsed lung, blood clot in the lung, tear in the aorta, or esophageal rupture. The inflammation may have been brought on by a blow to the chest, lifting heavy objects, intense exercise, or an illness that made you cough and sneeze a lot. It often occurs during times of emotional stress. It can be painful, but it is not dangerous. It usually goes away in 1 to 2 weeks. But it may happen again. Rarely, a more serious condition may cause symptoms similar to costochondritis. That s why it s important to watch for the warning signs listed below. Home care Follow these guidelines when caring for yourself at home: If you feel that emotional stress is a cause of your condition, try to figure out the sources of that stress. It may not be obvious. Learn ways to deal with the stress in your life. This can include regular exercise, muscle relaxation, meditation, or simply taking time out for yourself. You may use acetaminophen, ibuprofen, or naproxen to control pain, unless another pain medicine was prescribed. If you have liver or kidney disease or ever had a stomach ulcer, talk with your healthcare provider before using these medicines. You can also help ease pain by using a hot, wet compress or heating pad. Use this with or without a medicated skin cream that helps relieves pain. Do stretching exercise as advised by your provider. Take any prescribed medicines as directed. Follow-up care Follow up with your healthcare provider, or as advised, if you do not start to get better in the next 2 days. When to seek medical advice Call your healthcare provider right away if any of these occur: A change in the type of pain. Call if it feels different, becomes more serious, lasts longer, or spreads into your shoulder, arm, neck, jaw, or back. Shortness of breath or pain gets worse when you breathe Weakness, dizziness, or fainting Cough with dark-colored sputum (phlegm) or blood Abdominal pain Dark red or black stools Fever of 100.4 F (38 C) or higher, or as directed by your healthcare provider 9880-1313 [employer]. [address] [place] [address], [place] [address]. All rights reserved. This information is not intended as a substitute for professional medical care. Always follow your healthcare professional's instructions. Additional Information VACCINATE! IT SAVES LIVES! Members of the community who have not yet received the COVID-19 vaccine and would like to receive it can visit one of [facility] vaccine clinics. There are many vaccine clinic locations within the [facility]. For locations and available times, please visit [email or web address] It is important to note that some COVID mobile vaccine clinics are held outdoors and may be canceled in rainy or stormy conditions. To learn more about pediatric vaccinations (ages 5-11), we invite you to visit the [employer] webpage. [email or web address] To learn more about the COVID-19 vaccine, we invite you to visit the CDC website for a list of frequently asked questions. https://www.cdc.gov/coronavirus/2 019-ncov/vaccines/faq.html [place] [employer] Patient Portal Access Instructions: Stay connected with your healthcare team and access your personal medical information anytime with the [facility] Patient Portal. If you would like a full copy of your medical records please contact the [facility] Medical Records Department Friday through Friday between 8a.m. and 4:30p.m. Please follow the directions below to access the portal: 1.Access the email account you provided upon registration to the hospital.2.Look for an invitation email from [facility].3.Open the email and access the invitation link: Accept Invitation to [facility].Fill in the required rosas to create your account. Sign into [email or web address] with your username and password that you created in the above steps to stay up to date. You can then view a summary of results, a summary of your visits, and the ability to download your summaries to your computer or send the information securely to a physician. Remember that your healthcare information is confidential, so carefully consider who you will allow to register on the [facility] Patient Portal for access to your information. You can also access the [facility] Patient Portal on the [employer]. Simply click on Health Records under Health Data and then click on the [employer] logo. HOW TO SAFELY DISPOSE OF PRESCRIPTION MEDICATIONS Please use one of the following methods to safely dispose of your unused medications. 1.Use a drug disposal kit: the drug disposal pouch allows you to safely discard your old and unused drugs. Ask your nurse to give you one when you are discharged.2.Visit a local take-back location: Many local pharmacies and police departments have programs that collect old and unwanted prescription drugs. Call your local pharmacy or go to [email or web address] to find one close to you.3.Make use of household items: Use cat litter or old coffee grounds to dispose medications if other options are not available. Mix your drugs with these household products, seal them in an airtight container and throw it into the garbage. Call [facility]: [phone] to be sure your drugs can be disposed of in this way. Some medicines may require a different approach.4.Never flush your medications down the toilet. IF YOU HAVE BEEN PRESCRIBED AN OPIOIDS FOR PAIN If you have been prescribed an opioid (such as hydrocodone, oxycodone or morphine), it is critical to understand the possible side effects and risks of opioid pain medications. Even when taken as directed, opioids can have several side effects including: Tolerance, meaning you might need to take more of a medication for the same pain relief. Nausea, vomiting and/or constipation. Sleepiness, dizziness, dry mouth, confusion, depression or itching. Physical dependence, meaning you have withdrawal symptoms when a medication is stopped ? this can develop within a few days. KNOW YOUR RESPONSIBILITIES It is important to know exactly how much and how often to take the opioid pain medications you are prescribed. Never take opioids in higher amounts or more often than prescribed. Do not combine opioids with alcohol or other drugs that cause drowsiness, such as benzodiazepines, also known as benzos, including diazepam and alprazolam, muscle relaxants or sleep aids. Never sell or share prescription opioids. This is illegal. Store opioids in a secure place and out of reach of others (including children, family, friends and visitors). The last page(s) of this document has been signed and retained as a CHART COPY Signatures Patient Education Materials Chest Wall Pain, Costochondritis Medication Leaflets acetaminophen and hydrocodone, diclofenac topical My discharge plan and instructions have been reviewed and explained to me and I,AIDEE MOSS understand my current condition and have read and understand these discharge instructions. I have received a written copy of the plan/instructions. If I have questions, I am aware that I should contact my doctor. Patient/Retail Sales Merchandiser Signature: Date/Time: Relationship to Patient: ____ Witness Name/Signature: Date/Time: [facility] 12-19-2022 Note ORIGINAL HISTORY: Pain COMPARISON: 28 Jun 2022 FINDINGS: The lungs are clear. The cardiac silhouette is within normal size limits. The pulmonary vasculature is unremarkable in appearance. No acute rib fracture is seen. Alignment of the ribs is within normal limits. IMPRESSION: Unremarkable examination. Interpreted by: Candelario Calhoun MD Preliminary Report By: Candelario Calhoun MD Electronically signed By Candelario Calhoun MD Dictated Date: 12/19/2022 12:04:15 PM Prelim Date: 12/19/2022 12:05:17 PM Sign Date: 12/19/2022 12:05:17 PM Ordering Provider: ROMAN HIDALGO [facility] 12-19-2022 Note Sinus rhythm Borderline short TN interval ST elev, probable normal early repol pattern Baseline wander in lead(s) V6 Electronic Signature: ROMAN HIDALGO MD 12/19/2022 11:57:35 [facility] 08-19-2022 Hospital Discharge instructions Patient Education 08/19/2022 17:49:01 Fracture, Toe, Closed Closed Toe Fracture Your toe is broken (fractured). This causes local pain, swelling, and sometimes bruising. This injury usually takes about 4 to 6 weeks to heal, but can sometimes take longer. Toe injuries are often treated by taping the injured toe to the next one (mary taping). Or a hard shoe, splint or cast may be used. This protects the injured toe and holds it in position. If the toenail has been severely injured, it may fall off in 1 to 2 weeks. It takes up to 12 months for a new toenail to grow back. Home care Follow these guidelines when caring for yourself at home: You may be given a cast shoe to wear to keep your toe from moving. If not, you can use a sandal or any shoe that doesn t put pressure on the injured toe until the swelling and pain go away. If using a sandal, be careful not to strike your foot against anything. Another injury could make the fracture worse. If you were given crutches, don t put full weight on the injured foot until you can do so without pain, or as directed by your healthcare provider. Keep your foot elevated to reduce pain and swelling. When sleeping, put a pillow under the injured leg. When sitting, support the injured leg so it is above your heart. This is very important during the first 2 days (48 hours). Put an ice pack on the injured area. Do this for 20 minutes every 1 to 2 hours the first day for pain relief. You can make an ice pack by wrapping a plastic bag of ice cubes in a thin towel. As the ice melts, be careful that any cloth or paper tape doesn t get wet. Continue using the ice pack 3 to 4 times a day for the next 2 days. Then use the ice pack as needed to ease pain and swelling. If mary tape was used and it becomes wet or dirty, change it. You may replace it with paper, plastic, or cloth tape. Cloth tape and paper tapes must be kept dry. You may use acetaminophen or ibuprofen to control pain, unless another pain medicine was prescribed. If you have chronic liver or kidney disease, talk with your healthcare provider before using these medicines. Also talk with your provider if you ve had a stomach ulcer or gastrointestinal bleeding. You may return to sports or physical education activities after 4 weeks when you can run without pain, or as directed by your healthcare provider. Follow-up care Follow up with your healthcare provider in 1 week, or as advised. This is to make sure the bone is healing the way it should. X-rays may be taken. You will be told of any new findings that may affect your care. When to seek medical advice Call your healthcare provider right away if any of these occur: Pain or swelling gets worse The cast/splint cracks The cast and padding get wet and stays wet more than 24 hours Bad odor from the cast/splint or wound fluid stains the cast Tightness or pressure under the cast/splint gets worse Toe becomes cold, blue, numb, or tingly You can t move the toe Signs of infection: fever, redness, warmth, swelling, or drainage from the wound or cast Fever of 100.4 F (38 C) or higher, or chills as directed by your healthcare provider [id number] [employer]. [address] [place] [address]. All rights reserved. This information is not intended as a substitute for professional medical care. Always follow your healthcare professional's instructions. Follow Up Care 08/19/2022 16:20:57 With:PRISCILA MCGHEE DO, Orthopedic Address: [address] [place] [phone] When:5 to 7 days [facility] 08-19-2022 Note Discharge Instructions Thank you for allowing [facility] to assist you with your healthcare needs. The following is important discharge information regarding your hospital visit. Diagnosis from Today's Visit Fracture of toe Toe pain-swelling What to Do Next Instructions from Your Care Team -No standing or walking for prolonged periods -Call today to schedule follow-up with orthopedics in a week or 2 Discharge Return to Work, School, or Sports (Return to Work, School, or Sports) - Ordered -- 08/10/22 17:47:00 EDT, @ work, 08/19/22, 08/26/22, May return to: work, Rarely, 08/19/22 17:47:00 EDT Post Acute Orders No qualifying data available. You Need to Schedule the Following Appointments Follow Up with PRISCILA MCGHEE DO Orthopedic When Within 5 to 7 days Where: [address] [place] [phone] Allergies lisinopril penicillin Medications Please ask your primary doctor or pharmacist before taking any other medication not listed, including over the counter drugs, herbal medications, vitamins and or supplements as they may interact with your home medications. What How Much When Why Instructions Last Dose New acetaminophen-hydrocodone (Mckinney 325- 5 mg oral tablet) 1 tab(s) by mouth Every 6 hours as needed for for pain Fracture of toe Duration: 3 Days Printed Prescription Unchanged atorvastatin (atorvastatin 40 mg oral tablet) 1 tab(s) by mouth Once a day Unchanged carvedilol (carvedilol 3.125 mg oral tablet) 1 tab(s) by mouth Twice daily with meals Unchanged clindamycin (clindamycin 300 mg oral capsule) 1 cap by mouth Every 6 hours Duration: 10 Days Unchanged hydrOXYzine (hydrOXYzine pamoate 25 mg oral capsule) TAKE 1 CAPSULE EVERY DAY AT BEDTIME Unchanged propranolol (propranolol 120 mg oral capsule, extended release) 1 cap by mouth Every day Please take this list to your next doctor s visit. Bring all medications you take, including over the counter medications, herbals and other supplements with you to your doctor s visit. Patients and families are reminded to discard old lists and to update any records with all medication providers or retail pharmacies. Education Materials Closed Toe Fracture Your toe is broken (fractured). This causes local pain, swelling, and sometimes bruising. This injury usually takes about 4 to 6 weeks to heal, but can sometimes take longer. Toe injuries are often treated by taping the injured toe to the next one (mary taping). Or a hard shoe, splint or cast may be used. This protects the injured toe and holds it in position. If the toenail has been severely injured, it may fall off in 1 to 2 weeks. It takes up to 12 months for a new toenail to grow back. Home care Follow these guidelines when caring for yourself at home: You may be given a cast shoe to wear to keep your toe from moving. If not, you can use a sandal or any shoe that doesn t put pressure on the injured toe until the swelling and pain go away. If using a sandal, be careful not to strike your foot against anything. Another injury could make the fracture worse. If you were given crutches, don t put full weight on the injured foot until you can do so without pain, or as directed by your healthcare provider. Keep your foot elevated to reduce pain and swelling. When sleeping, put a pillow under the injured leg. When sitting, support the injured leg so it is above your heart. This is very important during the first 2 days (48 hours). Put an ice pack on the injured area. Do this for 20 minutes every 1 to 2 hours the first day for pain relief. You can make an ice pack by wrapping a plastic bag of ice cubes in a thin towel. As the ice melts, be careful that any cloth or paper tape doesn t get wet. Continue using the ice pack 3 to 4 times a day for the next 2 days. Then use the ice pack as needed to ease pain and swelling. If mary tape was used and it becomes wet or dirty, change it. You may replace it with paper, plastic, or cloth tape. Cloth tape and paper tapes must be kept dry. You may use acetaminophen or ibuprofen to control pain, unless another pain medicine was prescribed. If you have chronic liver or kidney disease, talk with your healthcare provider before using these medicines. Also talk with your provider if you ve had a stomach ulcer or gastrointestinal bleeding. You may return to sports or physical education activities after 4 weeks when you can run without pain, or as directed by your healthcare provider. Follow-up care Follow up with your healthcare provider in 1 week, or as advised. This is to make sure the bone is healing the way it should. X-rays may be taken. You will be told of any new findings that may affect your care. When to seek medical advice Call your healthcare provider right away if any of these occur: Pain or swelling gets worse The cast/splint cracks The cast and padding get wet and stays wet more than 24 hours Bad odor from the cast/splint or wound fluid stains the cast Tightness or pressure under the cast/splint gets worse Toe becomes cold, blue, numb, or tingly You can t move the toe Signs of infection: fever, redness, warmth, swelling, or drainage from the wound or cast Fever of 100.4 F (38 C) or higher, or chills as directed by your healthcare provider [phone] [employer]. [address] [place] [address]. All rights reserved. This information is not intended as a substitute for professional medical care. Always follow your healthcare professional's instructions. Additional Information VACCINATE! IT SAVES LIVES! Members of the community who have not yet received the COVID-19 vaccine and would like to receive it can visit one of [facility] vaccine clinics. There are many vaccine clinic locations within the [facility]. For locations and available times, please visit [email or web address].[place].g [email or web address] It is important to note that some COVID mobile vaccine clinics are held outdoors and may be canceled in rainy or stormy conditions. To learn more about pediatric vaccinations (ages 5-11), we invite you to visit the [facility] webpage. https://www.[email or web address]/pa ges/7353-Eosxz-Kcxdhnunwso-Freque owbs-Kpkmr-Emgwhmakz.html To learn more about the COVID-19 vaccine, we invite you to visit the CDC website for a list of frequently asked questions. https://www.cdc.gov/coronavirus/2 019-ncov/vaccines/faq.html [facility] Patient Portal Access Instructions: Stay connected with your healthcare team and access your personal medical information anytime with the [facility] Patient Portal. If you would like a full copy of your medical records please contact the [facility] Medical Records Department Friday through Friday between 8a.m. and 4:30p.m. Please follow the directions below to access the portal: 1.Access the email account you provided upon registration to the hospital.2.Look for an invitation email from [facility].3.Open the email and access the invitation link: Accept Invitation to [facility].Fill in the required rosas to create your account. Sign into [email or web address] with your username and password that you created in the above steps to stay up to date. You can then view a summary of results, a summary of your visits, and the ability to download your summaries to your computer or send the information securely to a physician. Remember that your healthcare information is confidential, so carefully consider who you will allow to register on the [facility] Patient Portal for access to your information. You can also access the [facility] Patient Portal on the [employer] claire. Simply click on Health Records under Health Data and then click on the [employer] logo. HOW TO SAFELY DISPOSE OF PRESCRIPTION MEDICATIONS Please use one of the following methods to safely dispose of your unused medications. 1.Use a drug disposal kit: the drug disposal pouch allows you to safely discard your old and unused drugs. Ask your nurse to give you one when you are discharged.2.Visit a local take-back location: Many local pharmacies and police departments have programs that collect old and unwanted prescription drugs. Call your local pharmacy or go to http://InnoPad.MOO.COM/5M7Yk8m to find one close to you.3.Make use of household items: Use cat litter or old coffee grounds to dispose medications if other options are not available. Mix your drugs with these household products, seal them in an airtight container and throw it into the garbage. Call [facility]: [phone] to be sure your drugs can be disposed of in this way. Some medicines may require a different approach.4.Never flush your medications down the toilet. IF YOU HAVE BEEN PRESCRIBED AN OPIOIDS FOR PAIN If you have been prescribed an opioid (such as hydrocodone, oxycodone or morphine), it is critical to understand the possible side effects and risks of opioid pain medications. Even when taken as directed, opioids can have several side effects including: Tolerance, meaning you might need to take more of a medication for the same pain relief. Nausea, vomiting and/or constipation. Sleepiness, dizziness, dry mouth, confusion, depression or itching. Physical dependence, meaning you have withdrawal symptoms when a medication is stopped ? this can develop within a few days. KNOW YOUR RESPONSIBILITIES It is important to know exactly how much and how often to take the opioid pain medications you are prescribed. Never take opioids in higher amounts or more often than prescribed. Do not combine opioids with alcohol or other drugs that cause drowsiness, such as benzodiazepines, also known as benzos, including diazepam and alprazolam, muscle relaxants or sleep aids. Never sell or share prescription opioids. This is illegal. Store opioids in a secure place and out of reach of others (including children, family, friends and visitors). The last page(s) of this document has been signed and retained as a CHART COPY Signatures Patient Education Materials Fracture, Toe, Closed Medication Leaflets My discharge plan and instructions have been reviewed and explained to me and IED LYNDA M understand my current condition and have read and understand these discharge instructions. I have received a written copy of the plan/instructions. If I have questions, I am aware that I should contact my doctor. Patient/Retail Sales Merchandiser Signature: Date/Time: Relationship to Patient: ____ Witness Name/Signature: Date/Time: [facility] 08-19-2022 Note ORIGINAL EXAMINATION: THREE XRAY VIEWS OF THE LEFT TOE(S) 08/19/2022 4:52 pm COMPARISON: None. HISTORY: ORDERING SYSTEM PROVIDED HISTORY: Reason for Exam: injury FINDINGS: There is an essentially nondisplaced acute oblique fracture involving the 5th proximal phalanx shaft . There is adjacent soft tissue swelling. There is synostosis of the 5th middle and distal phalanx. No radiopaque foreign body. IMPRESSION: Acute oblique 5th proximal phalanx fracture. I have personally reviewed the images of this examination and agree with the resident's findings and interpretation. Interpreted by: Ezra Escalera Preliminary Report By: Alf Luis Electronically signed By Ezra Escalera Dictated Date: 08/19/2022 5:03:29 PM Prelim Date: 08/19/2022 5:05:07 PM Sign Date: 08/19/2022 5:12:33 PM Ordering Provider: MARYELLEN AMBROSE [facility] 08-19-2022 Note ORIGINAL EXAMINATION: THREE XRAY VIEWS OF THE LEFT TOE(S) 08/19/2022 4:52 pm COMPARISON: None. HISTORY: ORDERING SYSTEM PROVIDED HISTORY: Reason for Exam: injury FINDINGS: There is an essentially nondisplaced acute oblique fracture involving the 5th proximal phalanx shaft . There is adjacent soft tissue swelling. There is synostosis of the 5th middle and distal phalanx. No radiopaque foreign body. IMPRESSION: Acute oblique 5th proximal phalanx fracture. I have personally reviewed the images of this examination and agree with the resident's findings and interpretation. Interpreted by: Ezra Escalera Preliminary Report By: Alf Luis Electronically signed By Ezra Escalera Dictated Date: 08/19/2022 5:03:29 PM Prelim Date: 08/19/2022 5:05:07 PM Sign Date: 08/19/2022 5:12:33 PM Ordering Provider: MARYELLEN AMBROSE [facility] 03-18-2022 Note HNO ID: [id number] Author: Svetlana Simental PA-C Service: ? Author Type: Physician Post Anesthesia Room Nurse Type: Progress Notes Filed: 03/21/2022 7:37 AM Note Text: Svetlana Simental PA-C Department of Orthopaedics Orthopaedics [address] [facility] [address] Dept: [phone] Dept March 18, 2022 CHIEF COMPLAINT: New and Pain of the Right Knee Ms. Aidee Moss is a 52 year old female who presents with pain in her knee for the past several weeks, pain is worse when she goes into a deep flexion of the knee and then attempts to straighten the knee. Pain is a 5 out of 10 deep aching. Patient is unable to take oral NSAIDs as she has a personal history of UT. She has been taking Tylenol which has not been helping her knee pain. She recalls a remote injury of her right quad muscle . She was in [place] at the time, she recalls having an ultrasound and was told that she had a tear of her quadriceps muscle. She did not require any type of surgical intervention. ASSESSMENT: M25.561 Acute pain of right knee (primary encounter diagnosis) M22.2X1 Patellofemoral pain syndrome of right knee PLAN: She seems to have a little bit of patellofemoral pain, since she cannot tolerate oral NSAIDs we discussed trying a corticosteroid injection today. Ms. Aidee Moss was advised as to contrast therapies and/or to take analgesics/anti-inflammatories as needed and all contraindications were reviewed. OBJECTIVE: Ms. Aidee Moss is a pleasant 52 year old in no apparent distress. Gen:There were no vitals taken for this visit. nl development, non obese, no deformities ENT: Normocephalic, normal hearing, moist mucosa CV: Pulses:DP/PT= 2+ and symmetric, capillary refill < 2 secs, no peripheral edema/varicosities Skin: no rash, bruising or lesions. Good turgor. Psych: cooperative and appropriate, alert and oriented x 3, good mood and affect. Musculoskeletal: KNEE EXAM: Right: Alignment: Neutral Range of motion is 0 degrees in extension and 120 degrees of flexion. Extension La degrees Pain with ROM: No Effusion: None Tender to the palpation of None Pain with patellar compression: Yes Stability: Anterior/Posterior stable and Varus/Valgus stable Hip Exam: flexion to 100+ degrees, full extension, internal/external rotation adequate, and no pain with log roll Neurovascular Status: Sensation Intact, Moves foot and ankle up AND down, and 2+ dorsalis pedis Large Joint Arthro/Inj: R knee joint Informed Consent Consent Obtained: Verbal [place] Protocol A moment to CARE was completed. SIGN IN Sign in communication not applicable due to emergent procedure. Personnel directly involved with the procedure wore the appropriate PPE. Special Equipment: N/A Patient/Surrogate Stated/Verified: Patient name, Date of , Relevant allergies and Intended procedure TIME OUT Intended patient and procedure match the source document(s). Consent documented and matches the intended procedure. Relevant labs, photos, and/or imaging studies have been reviewed. Correct side/site marked and visible. Medications required for procedure verified. No fire risk assessment and interventions applicable. No implant(s) inserted. 03/18/2022 12:05 PM The procedure site was prepped in the usual sterile fashion. Site: R knee joint Medications: 6 mg betamethasone acetate-betamethasone sodium phosphate 6 mg/mL Anesthetics: 5 mL lidocaine (PF) 10 mg/mL (1 %) Outcome: Tolerated well, no immediate complications Post-injection instructions were reviewed with the patient and the patient voiced understanding of these instructions. SIGN OUT Post-procedure follow-up management communicated and Plan of Care Visit completed when applicable Imaging: IMPRESSION: Mild degenerative changes Trade Facilitator: CHARLI Transcribe Date/Time: Mar 20 2022 9:00A Dictated by : MELISSA SAN MD This examination was interpreted and the report reviewed and electronically signed by: MELISSA SAN MD on Mar 20 2022 9:02AM EST Results-Findings * * *Final Report* * * DATE OF EXAM: Mar 18 2022 11:19AM WRX [id number] - XR KNEE 4V AP/PA BOTH+LAT/NICOLAS RT / PROCEDURE REASON: Right knee pain, unspecified chronicity * * * * Physician Interpretation * * * * TITLE: XR KNEE 4V AP/PA BOTH+LAT/NICOLAS RT CLINICAL INDICATION: Pain TECHNIQUE: AP/PA/merchant radiographs of both knees and lateral radiograph of the right knee COMPARISON: None FINDINGS: Right knee: Trace fluid in the right suprapatellar joint space. No acute fracture or dislocation. Mild medial and patellofemoral compartmental joint space narrowing. Left knee: No acute fracture or dislocation. Mild medial and patellofemoral compartmental joint space narrowing. Supporting Subjective Information Below: Past Surgical History: PAST SURGICAL HISTORY Procedure Laterality Date SECTION HX LIGATE FALLOP (more content not included)... [facility] 03-18-2022 Note HNO ID: [id number] Author: Fidelia Barrett Ma Service: ? Author Type: ? Type: Progress Notes Filed: 03/21/2022 7:37 AM Note Text: AMB ROOMING INTAKE FLOWSHEET DATA Pain Pain Level: 5 Description: Aching, Radiating, Sore, Stiffness Duration Amount of Time: 24 Duration Units: Hours Frequency: Continuous Intervention/Comfort measure: Medication, Relaxation, Cold, Heat, Massage Comments: Frels like bone on bone when knee is bent then straightened [facility] 03-18-2022 Note HNO ID: [id number] Author: Gwen Perez RT(R) Service: ? Author Type: Lens Polisher Hand Type: Progress Notes Filed: 03/18/2022 11:20 AM Note Text: Radiology Service Progress Note PATIENT NAME: Aidee Moss DATE OF SERVICE: March 18, 2022 TIME: 10:57 AM PATIENT IDENTITY VERIFICATION COMPLETED USING TWO (2) IDENTIFIERS: Name and Date of confirmed by patient verbally. FALL SCREENING: Has the patient had 2 falls in the last year or 1 fall with injury or currently using an Ambulatory Assistive Device (Walker, Cane, Wheelchair, Crutches, etc.)? No PATIENT GENDER DATA: Female. status: : No status: NO. PATIENT RELEVANT IMPLANT DATA REVIEWED: Yes RADIOLOGY DEPARTMENT: General X-ray: Exam(s) Completed: Lower Extremity X-Ray(s): Knee, AP / Lat / Tunne / Merchant Right PERIPHERAL IV DATA: Not applicable SIGNED BY: RT Eliana(R) March 18, 2022 10:57 AM [facility] 03-18-2022 History of Present illness Narrative Associated Order(s): Large Joint Arthro/Inj: R knee joint Post-Procedure Diagnose(s): Acute pain of right knee; Patellofemoral pain syndrome of right knee Svetlana Simental PA-C Department of Orthopaedics Orthopaedics [address] [facility] [address] Dept: [phone] Dept March 18, 2022 CHIEF COMPLAINT: New and Pain of the Right Knee Ms. Aidee Moss is a 52 year old female who presents with pain in her knee for the past several weeks, pain is worse when she goes into a deep flexion of the knee and then attempts to straighten the knee. Pain is a 5 out of 10 deep aching. Patient is unable to take oral NSAIDs as she has a personal history of UT. She has been taking Tylenol which has not been helping her knee pain. She recalls a remote injury of her right quad muscle . She was in [place] at the time, she recalls having an ultrasound and was told that she had a tear of her quadriceps muscle. She did not require any type of surgical intervention. ASSESSMENT: M25.561 Acute pain of right knee (primary encounter diagnosis) M22.2X1 Patellofemoral pain syndrome of right knee PLAN: She seems to have a little bit of patellofemoral pain, since she cannot tolerate oral NSAIDs we discussed trying a corticosteroid injection today. Ms. Aidee Moss was advised as to contrast therapies and/or to take analgesics/anti-inflammatories as needed and all contraindications were reviewed. OBJECTIVE: Ms. Aidee Moss is a pleasant 52 year old in no apparent distress. Gen:There were no vitals taken for this visit. nl development, non obese, no deformities ENT: Normocephalic, normal hearing, moist mucosa CV: Pulses:DP/PT= 2+ and symmetric, capillary refill < 2 secs, no peripheral edema/varicosities Skin: no rash, bruising or lesions. Good turgor. Psych: cooperative and appropriate, alert and oriented x 3, good mood and affect. Musculoskeletal: KNEE EXAM: Right: Alignment: Neutral Range of motion is 0 degrees in extension and 120 degrees of flexion. Extension La degrees Pain with ROM: No Effusion: None Tender to the palpation of None Pain with patellar compression: Yes Stability: Anterior/Posterior stable and Varus/Valgus stable Hip Exam: flexion to 100+ degrees, full extension, internal/external rotation adequate, and no pain with log roll Neurovascular Status: Sensation Intact, Moves foot and ankle up & down, and 2+ dorsalis pedis Large Joint Arthro/Inj: R knee joint Informed Consent Consent Obtained: Verbal [place] Protocol A moment to CARE was completed. SIGN IN Sign in communication not applicable due to emergent procedure. Personnel directly involved with the procedure wore the appropriate PPE. Special Equipment: N/A Patient/Surrogate Stated/Verified: Patient name, Date of , Relevant allergies and Intended procedure TIME OUT Intended patient and procedure match the source document(s). Consent documented and matches the intended procedure. Relevant labs, photos, and/or imaging studies have been reviewed. Correct side/site marked and visible. Medications required for procedure verified. No fire risk assessment and interventions applicable. No implant(s) inserted. 03/18/2022 12:05 PM The procedure site was prepped in the usual sterile fashion. Site: R knee joint Medications: 6 mg betamethasone acetate-betamethasone sodium phosphate 6 mg/mL Anesthetics: 5 mL lidocaine (PF) 10 mg/mL (1 %) Outcome: Tolerated well, no immediate complications Post-injection instructions were reviewed with the patient and the patient voiced understanding of these instructions. SIGN OUT Post-procedure follow-up management communicated and Plan of Care Visit completed when applicable Imaging: IMPRESSION: Mild degenerative changes Trade Facilitator: CHARLI Transcribe Date/Time: Mar 20 2022 9:00A Dictated by : EMLISSA SAN MD This examination was interpreted and the report reviewed and electronically signed by: MELISSA SAN MD on Mar 20 2022 9:02AM EST Results-Findings * * *Final Report* * * DATE OF EXAM: Mar 18 2022 11:19AM WRX [id number] - XR KNEE 4V AP/PA BOTH+LAT/NICOLAS RT / PROCEDURE REASON: Right knee pain, unspecified chronicity * * * * Physician Interpretation * * * * TITLE: XR KNEE 4V AP/PA BOTH+LAT/NICOLAS RT CLINICAL INDICATION: Pain TECHNIQUE: AP/PA/merchant radiographs of both knees and lateral radiograph of the right knee COMPARISON: None FINDINGS: Right knee: Trace fluid in the right suprapatellar joint space. No acute fracture or dislocation. Mild medial and patellofemoral compartmental joint space narrowing. Left knee: No acute fracture or dislocation. Mild medial and patellofemoral compartmental joint space narrowing. Supporting Subjective Information Below: Past Surgical History: PAST SURGICAL HISTORY Procedure Laterality Date SECTION HX LIGATE FALLOPIAN TUBE REMOVAL GALLBLADDER REVISE MEDIAN N/CARPAL TUNNEL SURG Left TMJ Left VAGINAL HYSTERECTOMY Medications: Current Outpatient Medications Medication Sig aspirin, enteric coated (ASPIRIN, ENTERIC COATED) 81 mg EC tablet Take 81 mg by mouth. atorvastatin (LIPITOR) 40 mg tablet Take 40 mg by mouth daily at bedtime. carvedilol (COREG) 3.125 mg tablet Take 3.125 mg by mouth twice daily. Cholecalciferol, Vitamin D3, 125 mcg (5,000 unit) cap Take by mouth. Zinc Acetate, Oral, 50 mg (zinc) cap Take by mouth. Ascorbic Acid 1,000 mg tablet Take by mouth. hydrOXYzine pamoate (VISTARIL) 25 mg capsule Take by mouth. No current facility-administered medications for this visit. Allergies: Lisinopril and Penicillins ROS: General (negative for fatigue, malaise, weight loss/gain) HEENT (negative for headache, earache, recent vision changes, sinus pain, sore throat) Respiratory (no recent shortness of breath, hemoptysis) CV (negative for chest tightness, palpitations) Musculoskeletal (see HPI) Psych (no depression, anxiety) This note was partially generated using [employer] voice recognition system, and there may be some incorrect words, spellings, and punctuation that were not noted in checking the note before saving. Svetlana Simental PA-C AMB ROOMING INTAKE FLOWSHEET DATA Pain Pain Level: 5 Description: Aching, Radiating, Sore, Stiffness Duration Amount of Time: 24 Duration Units: Hours Frequency: Continuous Intervention/Comfort measure: Medication, Relaxation, Cold, Heat, Massage Comments: Frels like bone on bone when knee is bent then straightened documented in this encounter [facility] 09-10-2021 History of Present illness Narrative Consultation requested by Dr. Kirkpatrick for an opinion regarding toenail fungus. My final recommendations will be communicated back to the requesting physician by way of shared Medical record or letter to requesting physician via US mail. Initial Podiatric Office Visit: Chief Complaint: This 51 year old female who presents with chief complaint:toenail thickening HPI Patient presnets to clinic for evaluation of b/l feet. She has thickening and discoloration of b/l great toenail. She states that over the years, the nails have gone from flat to curved and thick. Patient has tried over the counter anti-fungal medication which she has not yet noticed any improvement. She believes the nails are fungal and is here to discuss options. PAIN EVALUATION No data found in the last 1 encounters. No results found for: HBA1C PCP: Mars Kirkpatrick CNP PAST MEDICAL HISTORY Diagnosis Date Essential hypertension Heart attack (HCC) High cholesterol Current Outpatient Medications Medication Sig Ascorbic Acid 1,000 mg tablet Take by mouth. aspirin, enteric coated (ASPIRIN, ENTERIC COATED) 81 mg EC tablet Take 81 mg by mouth. atorvastatin (LIPITOR) 40 mg tablet Take 40 mg by mouth daily at bedtime. carvedilol (COREG) 3.125 mg tablet Take 3.125 mg by mouth twice daily. Cholecalciferol, Vitamin D3, 125 mcg (5,000 unit) cap Take by mouth. hydrOXYzine pamoate (VISTARIL) 25 mg capsule Take by mouth. Zinc Acetate, Oral, 50 mg (zinc) cap Take by mouth. No current facility-administered medications for this visit. ALLERGIES Allergen Reactions Lisinopril Cough Penicillins Other: See Comments PAST SURGICAL HISTORY Procedure Laterality Date SECTION HX LIGATE FALLOPIAN TUBE PARTIAL HYMENECTOMY REMOVAL GALLBLADDER REVISE MEDIAN N/CARPAL TUNNEL SURG Left TMJ Left FAMILY HISTORY Problem Relation Age of Onset Stroke Mother Diabetes Father Heart Father Diabetes Sister other (ms) Sister Cancer Brother No Known Problems Brother other (pacemaker) Paternal Grandfather Social History Tobacco Use Smoking status: Current Every Day Smoker Packs/day: 1.00 Types: Cigarettes Smokeless tobacco: Never Used Substance Use Topics Alcohol use: Yes Alcohol/week: 1.0 standard drink Types: 1 Glasses of Wine (5oz) per week Comment: occ. Drug use: Never REVIEW OF SYSTEMS GENERAL: Negative for Malaise, significant weight loss, fever RESPIRATORY: Negative for cough, wheezing and shortness of breath CARDIOVASCULAR: Negative for chest pain, leg swelling and palpitations GI: Negative for abdominal discomfort, blood in stools or black stools and change in bowel habits : Negative for dysuria, frequency and incontinence MUSCULOSKELETAL: Negative for joint pain or swelling, back pain, and muscle pain. SKIN: + discoloration of toenail HEMATOLOGY/LYMPHOLOGY Negative for prolonged bleeding, bruising easily, and swollen nodes. ENDOCRINE: Negative for cold or heat intolerance, polyuria, polydipsia and goiter. NEURO: negative Physical Exam: Constitutional: Pt is a well developed 51 year old female who is alert, oriented and cooperative Eyes: Following during examination. No redness or drainage. Respiratory: RR normal and nonlabored. Even breathing. No evidence of distress or shortness of breath. Psychology: Patient is engaged during conversation. Normal affect and mood. Does not appear depressed or anxious during encounter. Vascular: Dorsalis pedis and posterior tibial pulses faint b/l Capillary Fill time < 5 seconds to digits 1-5 b/l Skin temperature warm to warm proximal to distal b/l Hair growth present to digits Neurological: intact light touch/epicritic sensation b/l intact protective sensation no significant neurological deficits Dermatological: B/l hallux toenail is discolored green/yelllow. Webspaces clean and dry 1-4 b/l. Skin appears well hydrated and supple. good color, texture, turgor. No open lesions present. No callosities present. Musculoskeletal/Orthopaedic: Patient has no pain to palpation of b/l feet Foot type is neutral structurally AJ ROM is full with knee extended and flexed 1st MPJ is full when loaded and no pain or crepitus are noted with ROM. MTJ, STJ are full and free of pain and crepitus. +5/5 muscle strength dorsiflexion, plantarflexion, inversion, eversion b/l Radiographs: n/a ASSESSMENT: (B35.1) Onychomycosis (primary encounter diagnosis) PLAN: A review of the patient's PMH and Podiatric physical exam was completed. We discussed the possible etiologies of discolored, dystrophic, and thickened nails including fungus, yeast, mold as well as in some instances, prior trauma, or mechanical causes such as repetitive microtrauma in shoe gear. We discussed topical medication for discolored toenails which has very low success but no major side effects. We discussed oral medication. Patient will need hepatic testing prior to use. Patient informed of risks associated with Lamisil. We discussed removal of toenails. Patient would like to proceed with possible oral medication pending fungal culture. Gayathri Ac DPM Podiatry [address] [facility] [address] Dept: [phone] Dept AMB ROOMING INTAKE FLOWSHEET DATA Risk Screening Do you have concerns about personal safety or safety in the home?: No Patient presents with: Left Foot - New, Follow Up, Nail Fungus Right Foot - New, Follow Up, Nail Fungus Zamzam Kennedy LPN documented in this encounter [facility] 08-11-2021 Hospital Discharge instructions Patient Education 08/11/2021 13:51:28 Dental Abscess Dental Abscess An abscess is a pocket of pus at the tip of a tooth root in your jaw bone. It is caused by an infection at the root of the tooth. It can cause pain and swelling of the gum, cheek, or jaw. Pain may spread from the tooth to your ear or the area of your jaw on the same side. If the abscess isn t treated, it appears as a bubble or swelling on the gum near the tooth. The pressure that builds in this swelling is the source of the pain. More serious infections cause your face to swell. An abscess can be caused by a crack in the tooth, a cavity, a gum infection, or a combination of these. Once the pulp of the tooth is exposed, bacteria can spread down the roots to the tip. If the bacteria are not stopped, they can damage the bone and soft tissue, and an abscess can form. Home care Follow these guidelines when caring for yourself at home: Don't have hot and cold foods and drinks. Your tooth may be sensitive to changes in temperature. Don t chew on the side of the infected tooth. If your tooth is chipped or cracked, or if there is a large open cavity, put oil of cloves directly on the tooth to relieve pain. You can buy oil of cloves at [employer]. Some pharmacies carry an ucpc-ojo-ggnvmux toothache kit. This contains a paste that you can put on the exposed tooth to make it less sensitive. Put a cold pack on your jaw over the sore area to help reduce pain. You may use hknh-ync-zjxfnby medicine to ease pain, unless another medicine was prescribed. If you have chronic liver or kidney disease, talk with your healthcare provider before using acetaminophen or ibuprofen. Also talk with your provider if you ve had a stomach ulcer or GI bleeding. An antibiotic will be prescribed. Take it until finished, even if you are feeling better after a few days. Follow-up care Follow up with your dentist or an oral surgeon, or as advised. Once an infection occurs in a tooth, it will continue to be a problem until the infection is drained. This is done through surgery or a root canal. Or you may need to have your tooth pulled. Call 911 Call 911 if any of these occur: Unusual drowsiness Headache or stiff neck Weakness or fainting Difficulty swallowing, breathing, or opening your mouth Swollen eyelids When to seek medical advice Call your healthcare provider right away if any of these occur: Your face becomes more swollen or red Pain gets worse or spreads to your neck Fever of 100.4 F (38.0 C) or higher, or as directed by your healthcare provider Pus drains from the tooth [id number] [employer]. [address] [place] [address], [place] [address]. All rights reserved. This information is not intended as a substitute for professional medical care. Always follow your healthcare professional's instructions. Follow Up Care 08/11/2021 13:09:47 With:Your dentist Address:Unknown When:2-4 days Comments:Schedule appointment for close follow-up.Soft diet.Use Tylenol, Advil or Aleve for pain and fever as needed.Continue clindamycin as previously prescribed.Return to ED if symptoms worsen. [facility] Milakatherine Mata 08-11-2021 Note Discharge Instructions Thank you for allowing [facility] to assist you with your healthcare needs. The following is important discharge information regarding your hospital visit. Diagnosis from Today's Visit Fever What to Do Next Instructions from Your Care Team No qualifying data available. Post Acute Orders No qualifying data available. You Need to Schedule the Following Appointments Follow Up with Your dentist When Within 2-4 days Why: Schedule appointment for close follow-up. Soft diet. Use Tylenol, Advil or Aleve for pain and fever as needed. Continue clindamycin as previously prescribed. Return to ED if symptoms worsen. Allergies penicillin Medications Please ask your primary doctor or pharmacist before taking any other medication not listed, including over the counter drugs, herbal medications, vitamins and or supplements as they may interact with your home medications. What How Much When Instructions Last Dose Unchanged atorvastatin (atorvastatin 40 mg oral tablet) 1 tab(s) by mouth Once a day Unchanged carvedilol (carvedilol 3.125 mg oral tablet) 1 tab(s) by mouth Twice daily with meals Unchanged clindamycin (clindamycin 300 mg oral capsule) 1 cap by mouth Every 6 hours Duration: 10 Days Unchanged hydrOXYzine (hydrOXYzine pamoate 25 mg oral capsule) TAKE 1 CAPSULE EVERY DAY AT BEDTIME Unchanged propranolol (propranolol 120 mg oral capsule, extended release) 1 cap by mouth Every day Please take this list to your next doctor s visit. Bring all medications you take, including over the counter medications, herbals and other supplements with you to your doctor s visit. Patients and families are reminded to discard old lists and to update any records with all medication providers or retail pharmacies. Education Materials Dental Abscess An abscess is a pocket of pus at the tip of a tooth root in your jaw bone. It is caused by an infection at the root of the tooth. It can cause pain and swelling of the gum, cheek, or jaw. Pain may spread from the tooth to your ear or the area of your jaw on the same side. If the abscess isn t treated, it appears as a bubble or swelling on the gum near the tooth. The pressure that builds in this swelling is the source of the pain. More serious infections cause your face to swell. An abscess can be caused by a crack in the tooth, a cavity, a gum infection, or a combination of these. Once the pulp of the tooth is exposed, bacteria can spread down the roots to the tip. If the bacteria are not stopped, they can damage the bone and soft tissue, and an abscess can form. Home care Follow these guidelines when caring for yourself at home: Don't have hot and cold foods and drinks. Your tooth may be sensitive to changes in temperature. Don t chew on the side of the infected tooth. If your tooth is chipped or cracked, or if there is a large open cavity, put oil of cloves directly on the tooth to relieve pain. You can buy oil of cloves at [employer]. Some pharmacies carry an jjyt-qns-wpcbgga toothache kit. This contains a paste that you can put on the exposed tooth to make it less sensitive. Put a cold pack on your jaw over the sore area to help reduce pain. You may use pgjr-hxg-jxbxcpo medicine to ease pain, unless another medicine was prescribed. If you have chronic liver or kidney disease, talk with your healthcare provider before using acetaminophen or ibuprofen. Also talk with your provider if you ve had a stomach ulcer or GI bleeding. An antibiotic will be prescribed. Take it until finished, even if you are feeling better after a few days. Follow-up care Follow up with your dentist or an oral surgeon, or as advised. Once an infection occurs in a tooth, it will continue to be a problem until the infection is drained. This is done through surgery or a root canal. Or you may need to have your tooth pulled. Call 911 Call 911 if any of these occur: Unusual drowsiness Headache or stiff neck Weakness or fainting Difficulty swallowing, breathing, or opening your mouth Swollen eyelids When to seek medical advice Call your healthcare provider right away if any of these occur: Your face becomes more swollen or red Pain gets worse or spreads to your neck Fever of 100.4 F (38.0 C) or higher, or as directed by your healthcare provider Pus drains from the tooth [id number] [employer]. [address] [place] [address], [place] [address]. All rights reserved. This information is not intended as a substitute for professional medical care. Always follow your healthcare professional's instructions. Additional Information VACCINATE! IT SAVES LIVES! Members of the community who have not yet received the COVID-19 vaccine and would like to receive it can visit one of [facility] vaccine clinics. There are many vaccine clinic locations within the [facility]. For locations and available times, please visit [email or web address]. It is important to note that some COVID mobile vaccine clinics are held outdoors and may be canceled in rainy or stormy conditions. To learn more about pediatric vaccinations (ages 5-11), we invite you to visit the [facility] webpage. [email or web address] To learn more about the COVID-19 vaccine, we invite you to visit the [place] website for a list of frequently asked questions. [email or web address] [place] [employer] Patient Portal Access Instructions: Stay connected with your healthcare team and access your personal medical information anytime with the [facility] Patient Portal. If you would like a full copy of your medical records please contact the [facility] Medical Records Department Friday through Friday between 8a.m. and 4:30p.m. Please follow the directions below to access the portal: 1.Access the email account you provided upon registration to the [facility].2.Look for an invitation email from [facility].3.Open the email and access the invitation link: Accept Invitation to [facility].Fill in the required rosas to create your account. Sign into [email or web address] with your username and password that you created in the above steps to stay up to date. You can then view a summary of results, a summary of your visits, and the ability to download your summaries to your computer or send the information securely to a physician. Remember that your healthcare information is confidential, so carefully consider who you will allow to register on the [facility] Patient Portal for access to your information. You can also access the [facility] Patient Portal on the [employer]. Simply click on Health Records under Health Data and then click on the [employer] logo. HOW TO SAFELY DISPOSE OF PRESCRIPTION MEDICATIONS Please use one of the following methods to safely dispose of your unused medications. 1.Use a drug disposal kit: the drug disposal pouch allows you to safely discard your old and unused drugs. Ask your nurse to give you one when you are discharged.2.Visit a local take-back location: Many local pharmacies and police departments have programs that collect old and unwanted prescription drugs. Call your local pharmacy or go to http://InnoPad.MOO.COM/6H4Vy8s to find one close to you.3.Make use of household items: Use cat litter or old coffee grounds to dispose medications if other options are not available. Mix your drugs with these household products, seal them in an airtight container and throw it into the garbage. Call [facility]: [phone] to be sure your drugs can be disposed of in this way. Some medicines may require a different approach.4.Never flush your medications down the toilet. IF YOU HAVE BEEN PRESCRIBED AN OPIOIDS FOR PAIN If you have been prescribed an opioid (such as hydrocodone, oxycodone or morphine), it is critical to understand the possible side effects and risks of opioid pain medications. Even when taken as directed, opioids can have several side effects including: Tolerance, meaning you might need to take more of a medication for the same pain relief. Nausea, vomiting and/or constipation. Sleepiness, dizziness, dry mouth, confusion, depression or itching. Physical dependence, meaning you have withdrawal symptoms when a medication is stopped ? this can develop within a few days. KNOW YOUR RESPONSIBILITIES It is important to know exactly how much and how often to take the opioid pain medications you are prescribed. Never take opioids in higher amounts or more often than prescribed. Do not combine opioids with alcohol or other drugs that cause drowsiness, such as benzodiazepines, also known as benzos, including diazepam and alprazolam, muscle relaxants or sleep aids. Never sell or share prescription opioids. This is illegal. Store opioids in a secure place and out of reach of others (including children, family, friends and visitors). The last page(s) of this document has been signed and retained as a CHART COPY Signatures Patient Education Materials Dental Abscess Medication Leaflets My discharge plan and instructions have been reviewed and explained to me and I,AIDEE MOSS understand my current condition and have read and understand these discharge instructions. I have received a written copy of the plan/instructions. If I have questions, I am aware that I should contact my doctor. Patient/Retail Sales Merchandiser Signature: Date/Time: Relationship to Patient: ____ Witness Name/Signature: Date/Time: [facility] 08-02-2021 Hospital Discharge instructions Patient Education 08/02/2021 01:02:59 Dental Abscess Dental Abscess An abscess is a sac of pus. A dental abscess forms when a tooth or the tissue around it becomes infected with bacteria. The bacteria can enter through a cavity or a crack in a tooth. It can also infect the gum tissue or bone around a tooth. An untreated abscess can cause the loss of the tooth. It can even spread to other parts of the body and become life-threatening. Symptoms of a dental abscess Signs of a dental abscess include: Toothache, often severe Tooth pain with hot, cold, or pressure Pain in the gums, cheek, or jaw Bad breath or bitter taste in the mouth Trouble swallowing or opening the mouth Fever Swollen or enlarged glands in the neck Diagnosing a dental abscess An abscess is diagnosed by looking at your teeth and gums. You will be told if any tests are needed, such as dental X-rays. Treating a dental abscess Treatments for a dental abscess may include the following: Antibiotic medicines. These treat the underlying infection. Pain relievers. These help you feel more comfortable. Your healthcare provider may prescribe a medicine for you. Or you may use btdb-sbe-hlssfod pain relievers, such as acetaminophen or ibuprofen. Warm saltwater rinses. These can soothe discomfort and help clear away pus. Root canal surgery. This may be done if needed to save the tooth. With a root canal, the infected part of the tooth is removed. A special substance is then used to fill the empty space in the tooth. Draining the abscess. This may be doneif needed. Incisions are made to allow the infected material to drain from the tooth. Removing the tooth. This is done in cases of severe infection that can t be treated another way. You may need to be admitted to a hospital if the infection is severe, has spread, or doesn t respond to treatment. When to call the dentist Call your dentist right away if you have any of the following: Fever of 100.4 F (38 C) or higher Increased pain, redness, drainage, or swelling in the treated area Swelling of the face or jawbone Pain that can't be controlled with medicines Preventing dental abscess To prevent another abscess in the future, keep your teeth clean and healthy. Holden twice a day and floss at least once daily. See your dentist for regular tooth cleanings. And stay away from sugary foods and drinks that can lead to tooth decay. [phone] [employer]. [address] [place] [address]. All rights reserved. This information is not intended as a substitute for professional medical care. Always follow your healthcare professional's instructions. 08/02/2021 01:02:57 Dental Pain Dental Pain A crack or cavity in a tooth can cause tooth pain. This is because the crack or cavity exposes the sensitive inner area of the tooth. An infection in the gum or the root of the tooth can cause pain and swelling. The pain is often made worse when you drink hot or cold beverages. It can also be worse when you bite on hard foods. Pain may spread from the tooth to your ear or the area of the jaw on the same side. Home care Follow these tips when caring for yourself at home: Don't have hot and cold foods and drinks. Your tooth may be sensitive to changes in temperature. Use toothpaste made for sensitive teeth. Holden gently up and down instead of sideways. Brushing sideways can wear away root surfaces if they are exposed. If your tooth is chipped or cracked, or if there is a large open cavity, put oil of cloves directly on the tooth to relieve pain. You can buy oil of cloves at drugstores. Some pharmacies carry an qwrk-dju-rkbmvnp toothache kit. This contains a paste that you can put on the exposed tooth to make it less sensitive. Put a cold pack on your jaw over the sore area to help reduce pain. You may use fnjm-dyj-voouyum medicine to ease pain, unless your doctor prescribed another medicine. If you have chronic liver or kidney disease, talk with your healthcare provider before using acetaminophen or ibuprofen. Also talk with your provider if you ve had a stomach ulcer or GI bleeding. If you have signs of an infection, you will be given an antibiotic. Take it as directed. Follow-up care Follow up with your dentist, or as advised. Your pain may go away with the treatment given today. But only a dentist can fully look at and treat the cause of your pain. This will keep the pain from coming back. Call 911 Call 911 if any of these occur: Unusual drowsiness Headache or stiff neck Weakness or fainting Difficulty swallowing or breathing When to seek medical advice Call your health care provider right away if any of these occur: Your face becomes swollen or red Pain gets worse or spreads to your neck Fever of 100.4 F (38.0 C) or higher, or as directed by your healthcare provider Pus drains from the tooth [phone] [employer]. [address] [place] [address]. All rights reserved. This information is not intended as a substitute for professional medical care. Always follow your healthcare professional's instructions. Follow Up Care 08/02/2021 00:21:02 With:your dentist Address:Unknown When:2-4 days Comments:Schedule appointment as soon as possibleReturn to ED if symptoms worsen [facility] Evaluation + Plan note No data available for this section [facility] Right knee pain, unspecified chronicity- Primary [facility] Diagnosis Acute pain of right knee- Primary Patellofemoral pain syndrome of right knee [facility] Diagnosis Right knee pain, unspecified chronicity [facility] Diagnosis Onychomycosis- Primary Dermatophytosis of nail [facility] No data available for this section [facility] Reason for referral (narrative)* Diagnostic Procedure Only (Routine) - Pending Review Specialty Diagnoses / Procedures Referred By Allan ryan Referred To Contact XR IMAGING Diagnoses Right knee pain, unspecified chronicity Procedures XR KNEE GENERAL 4V AP BOTH/PA BOTH/LAT/MERC RIGHT RADIOLOGIC EXAM KNEE COMPLETE 4/MORE VIEWS Emily Marques MD [address] [place] [address] Xr Imaging Referral ID Status Reason Start Date Expiration Date Visits Requested Visits Authorized [id number] Pending Review Auto-Generat ed Referral 03/12/2022 04/11/2023 1 1 [facility] for referral (narrative)* Diagnostic Procedure Only (Routine) - Closed Specialty Diagnoses / Procedures Referred By Allan ryan Referred To Contact XR IMAGING Diagnoses Right knee pain, unspecified chronicity Procedures XR KNEE GENERAL 4V AP BOTH/PA BOTH/LAT/MERC RIGHT RADIOLOGIC EXAM KNEE COMPLETE 4/MORE VIEWS Emily Marques MD [address] [place] [address] [place] [address] Referral ID Status Reason Start Date Expiration Date V isits Requested Visits Authorized [id number] Closed Auto-Generate d Referral 03/12/2022 04/11/2023 1 1 [facility] for visit Narrative* Diagnostic Procedure Only (Routine) - Closed Specialty Diagnoses / Procedures Referred By Allan t Referred To Contact XR IMAGING Diagnoses Right knee pain, unspecified chronicity Procedures XR KNEE GENERAL 4V AP BOTH/PA BOTH/LAT/MERC RIGHT RADIOLOGIC EXAM KNEE COMPLETE 4/MORE VIEWS Emily Marques MD [address] [place] [address] [place] [address] Referral ID Status Reason Start Date Expiration Date V isits Requested Visits Authorized [id number] Closed Auto-Generate d Referral 03/12/2022 04/11/2023 1 1 [facility] Medications Administered Section Inactive Administered Medications - up to 3 most recent administrations Medication Order MAR Action Action Date Dose Rate Site betamethasone acetate-betamethasone sodium phosphate 6 mg injection (CELESTONE) 6 mg, Injection - FOR ORTHO USE ONLY, ONE TIME INJECTION, 1 dose, Starting on Fri03/18/22 at 1205, Until Fri03/18/22 at 1205 Given 03/18/2022 12:05 PM EST 6 mg Knee, Right lidocaine (PF) 10 mg/mL (1 %) 5 mL injection (XYLOCAINE) 5 mL, Injection - FOR ORTHO USE ONLY, ONE TIME INJECTION, 1 dose, Starting on Fri03/18/22 at 1205, Until Fri03/18/22 at 1205 Given 03/18/2022 12:05 PM EST 5 mL Knee, Right Summary Purpose Family History No Family History Records Found Advance Directives No Advanced Directives Records FoundNo Advanced Directives Records Found Additional Source Comments Care Team (unrecognized sect ion and content) Personnel Name: MARS KIRKPATRICK Address: Address: [address] [place] [address] Care Team Personnel Name: MARS KIRKPATRICK Member Role: Primary Care Physician Address: Address: [address] [place] [address] Care Team Related Persons Name: NOAH SLATER Address: [address] Source Comments (unrecognize d section and content) In the event this informatio n is protected by the [facility] Confidentiality of Alcohol and Drug Abuse Patient Records regulations: The Federal rules restrict any use of the information to criminally investigate or prosecute any alcohol or drug abuse patient.[facility] the event this information is protected by the Federal Confidentiality of Alcohol and Drug Abuse Patient Records regulations: The Federal rules restrict any use of the information to criminally investigate or prosecute any alcohol or drug abuse patient.[facility] the event this information is protected by the Federal Confidentiality of Alcohol and Drug Abuse Patient Records regulations: The Federal rules restrict any use of the information to criminally investigate or prosecute any alcohol or drug abuse patient.[facility] the event this information is protected by the Federal Confidentiality of Alcohol and Drug Abuse Patient Records regulations: The Federal rules restrict any use of the information to criminally investigate or prosecute any alcohol or drug abuse patient.[facility] the event this information is protected by the Federal Confidentiality of Alcohol and Drug Abuse Patient Records regulations: The Federal rules restrict any use of the information to criminally investigate or prosecute any alcohol or drug abuse patient.[facility] Reason for Visit (unrecogniz ed section and content) Reason Comments New Pain Reason Comments Established Patient toenail fungus Care Teams (unrecognized sec tion and content) Operator Assistant I Cementing Relationship Specialty Start Date End Date KirkpatrickMars abrams CNP [address] [facility], [place] [address] PCP - General Internal Medicine 07/25/21 Operator Assistant I Cementing Relationship Specialty Start Date End Date Mars Kirkpatrick CNP [address] [facility] [place], [place] [address] PCP - General Internal Medicine 07/25/21 Operator Assistant I Cementing Relationship Specialty Start Date End Date Mars Kirkpatrick CNP [address] [facility], [place] [id number] PCP - General Internal Medicine 07/25/21 Operator Assistant I Cementing Relationship Specialty Start Date End Date KirkpatrickMars abrams CNP [address] [facility], [place] [id number] PCP - General Internal Medicine 07/25/21 Anahy Fisher NP [address] [facility] [place] [phone] Referring Family Medicine 12/16/22 INFORMATION SOURCE (unrecogn ized section and content) DATE CREATED AUTHOR AUTHOR'S HARPALIZ ATION 01/08/2023 [facility] FOR RECORDS PERTAINING TO PATIENTS WHO ARE OR HAVE BEEN ENROLLED IN A CHEMICAL DEPENDENCY/SUBSTANCEABUSE PROGRAM, SOME INFORMATION MAY BE OMITTED. This clinical summary was aggregated from multiple sources. Caution should be exercised in using it in the provision of clinical care. This summary normalizes information from multiple sources, and as a consequence, information in this document may materially change the coding, format and clinical context of patient data. In addition, data may be omitted in some cases. CLINICAL DECISIONS SHOULD BE BASED ON THE PRIMARY CLINICAL RECORDS. [employer] provides no warranty or guarantee of the accuracy or completeness of information in this document.
[2023-02-08 09:54] LABS: Hematocrit 46.8 % (37-47); Hemoglobin 15.2 g/dL (12.0-15.0); Mean Corp Hgb Conc 32.5 g/dL (32-36); Mean Corpuscular Hgb 30.4 pg (27.0-32.0); Mean Corpuscular Volume 93.6 fL (81-99); Mean Platelet Vol. 10.5 fl (6.2-12.0); Platelet Count 227 K/mm3 (150-450); RBC Distribution Width CV 13.4 % (11.6-14.6); RBC Distribution Width SD 46.4 fl (35.1-43.9); White Blood Count 8.5 K/mm3 (4.4-11.0)
[2023-02-08 10:20] LABS: AST(SGOT) 16 U/L (15-37); Alanine Aminotransfer ALT/SGPT 28 U/L (13-56); Albumin, Serum 3.5 g/dL (3.2-5.0); Alkaline Phosphatase 128 U/L (45-117); Anion Gap 2 (5-15); BUN 16 mg/dL (7-18); BUN/Creat Ratio 18.3 RATIO (10-20); Calcium,Total 8.9 mg/dL (8.5-10.1); Chloride 111 mmol/L (98-107); Cholesterol 179 mg/dL (200); Creatinine, Serum 0.87 mg/dL (0.55-1.02); EST Glomerular Filtration Rate 73 mL/min (>60); Est Glom Filt Rate - Afr Amer 88 mL/min (>60); Globulin 3.5 g/dL (2.2-4.2); Glucose 89 mg/dL (74-106); High Density Lipoprotein 62 mg/dL; Potassium 4.9 mmol/L (3.5-5.1); Sodium Level 141 mmol/L (136-145); Triglycerides 131 mg/dL; Very Low Density Lipoprotein 26 mg/dL (5-40)
[2023-02-08 10:22] LABS: Microalbumin,Random Urine 11.1 mg/L (NO RANGE EST.)
== END | disposition home or self-care (01) ==
PROVIDERS: Referring Provider Nurse Practitioner Family; Visit Provider Nurse Practitioner Family
DX: I10 Essential (primary) hypertension (principal); E78.5 Hyperlipidemia, unspecified; F41.1 Generalized anxiety disorder
CPT/HCPCS: 36415; 80053; 80061; 82043; 84443; 85027

== ENCOUNTER → 2023-08-12 | Outpatient (CLI) | payer OTHER, SELFPAY ==
[2017-02-18 08:33] VITALS: BMI 24.0
== END | disposition home or self-care (01) ==
LOC: VSLAB 10:42
PROVIDERS: Visit Provider Nurse Practitioner Family
DX: R19.7 Diarrhea, unspecified (principal)
CPT/HCPCS: 87493; 87506

== ENCOUNTER → 2023-10-06 | Outpatient (CLI) | payer OTHER, SELFPAY ==
[2023-09-29 11:08] VITALS: BMI 24.0
[2023-10-06 17:40] LABS: Hematocrit 43.9 % (37-47); Mean Corp Hgb Conc 31.9 g/dL (32-36); Mean Corpuscular Hgb 29.5 pg (27.0-32.0); Mean Corpuscular Volume 92.6 fL (81-99); Mean Platelet Vol. 11.1 fl (6.2-12.0); Platelet Count 205 K/mm3 (150-450); RBC Distribution Width CV 13.3 % (11.6-14.6); RBC Distribution Width SD 45.5 fl (35.1-43.9); Red Blood Count 4.74 M/mm3 (4.2-5.4); White Blood Count 9.7 K/mm3 (4.4-11.0)
[2023-10-06 18:06] LABS: Anion Gap 6 (5-15); BUN 17 mg/dL (7-18); BUN/Creat Ratio 16.7 RATIO (10-20); Calcium,Total 9.8 mg/dL (8.5-10.1); Chloride 105 mmol/L (98-107); Creatinine, Serum 1.02 mg/dL (0.55-1.02); EST Glomerular Filtration Rate 61 mL/min (>60); Est Glom Filt Rate - Afr Amer 73 mL/min (>60); Glucose 112 mg/dL (74-106); Potassium 4.1 mmol/L (3.5-5.1); Sodium Level 138 mmol/L (136-145)
== END | disposition home or self-care (01) ==
LOC: LAB 16:30
PROVIDERS: Referring Provider Urology; Visit Provider Urology
DX: Z01.812 Encounter for preprocedural laboratory examination (principal)
CPT/HCPCS: 36415; 80048; 85027

== ENCOUNTER → 2023-10-10 | Outpatient (CLI) | payer OTHER, SELFPAY ==
[2023-09-29 11:08] VITALS: BMI 24.0
--- NOTE | 2023-10-10 07:15 | EKG12_ITS ---
Test Reason : PRE OP Blood Pressure : / mmHG Vent. Rate : 062 BPM Atrial Rate : 062 BPM P-R Int : 124 ms QRS Dur : 082 ms QT Int : 430 ms P-R-T Axes : 073 040 058 degrees QTc Int : 436 ms Normal sinus rhythm Nonspecific T wave abnormality Abnormal ECG Confirmed by SAYRA JAMES ([id number]), communications editor AILYN SAUNDERS ([id number]) on 10/11/2023 6:05:29 AM Referred By: Ziggy Horvath Confirmed By:SAYRA JAMES
== END | disposition home or self-care (01) ==
LOC: PSN 07:06
PROVIDERS: Referring Provider Urology; Visit Provider Urology
DX: Z01.810 Encounter for preprocedural cardiovascular examination (principal)
CPT/HCPCS: 93005

== ENCOUNTER → 2023-10-20 | Outpatient (CLI) | payer OTHER, SELFPAY ==
[2023-09-29 11:08] VITALS: BMI 24.0
--- NOTE | 2023-10-20 | CALC_PTH ---
PATIENT: JULIA WARD LOC: [facility] #:[id number] AGE/SX: 53/F ROOM: RE10/20/[address]: Dr. Ziggy Horvath MD : 1970 BED: DIS: 10/20/2023 SPEC #: [id number] RECD: 10/20/23 10:11 STATUS: VIGNESH BOSE #: [id number] ALEXI: 10/20/23 00:[address]: Ziggy Horvath DEPT: SURGICAL PATHOLOGY RECD BY: Brian Gonzalez ENTERED: 10/21/23 10:12 SP TYPE: Calculi OTHR DR: Jolene [facility] Tissues: CALCULI Procedures: Surgery Specimen Level I HEADER OPERATION: Left ureteroscopy, laser stone, left ureteral stent placement PRE-OP DIAGNOSIS: Calculus of bladder TISSUE SUBMITTED: Renal calculi GROSS DIAGNOSIS A fragment of stone, clinically renal calculus (gross only). 10/21/2023 COMMENT The calculus is submitted in its entirety for chemical stone analysis. The results from this study will be reported separately. GROSS DESCRIPTION Received without fixative labeled with the patient's name and designated renal calculi. The specimen consists of a irregular fragment of black stone measuring 0.4 x 0.2 x 0.2 cm. The entire specimen is submitted for stone analysis. 10/21/2023 CPT: 00269
[2023-10-31 01:07] LABS: Ca Oxalate, Monohydrate 100 % (.); Size 3x2 mm (.); Source Kidney (.)
== END | disposition home or self-care (01) ==
LOC: LABSPEC 15:21
PROVIDERS: Referring Provider Urology; Visit Provider Urology
DX: N20.1 Calculus of ureter (principal)
CPT/HCPCS: 82360; 88300

== ENCOUNTER → 2023-10-31 | Outpatient (CLI) | payer OTHER, SELFPAY ==
[2023-09-29 11:08] VITALS: BMI 24.0
--- NOTE | 2023-10-31 07:18 | MRI_ITS ---
STUDY: MRI RIGHT KNEE REASON FOR EXAM: Female, 53 years old. Pain. Bending, rising from kneeling, swelling, pain, clicking, grinding x 10+ years, NKI, no surgery. TECHNIQUE: Standardized fat and water weighted pulse sequences were obtained in all 3 orthogonal planes. COMPARISON: Right knee radiographs dated 10/06/2023. FINDINGS: There is a horizontal tear of the posterior horn of the medial meniscus (sagittal PD series 3 images 28-33). Normal hyaline cartilage of the medial femorotibial compartment. Normal medial femoral condyle and tibial plateau. Normal medial collateral ligamentous complex (MCL). Normal distal semimembranosus, gracilis and semitendinosus tendons. Normal lateral meniscus. There is focal chondromalacia along the posterior aspect of the lateral tibial plateau (coronal T2 series 6 image 13) Normal lateral femoral condyle and tibial plateau. Normal proximal tibiofibular articulation. Normal lateral collateral (fibular) ligament. Normal popliteus tendon. Normal biceps femoris tendon. Normal anterior cruciate ligament (ACL). Normal posterior cruciate ligament (PCL). Normal congruent patellofemoral articulation. Normal hyaline cartilage of the patellofemoral compartment. Normal medial and lateral patellar retinaculum. Normal quadriceps tendon. Normal patellar tendon. Normal Hoffa''s fat pad. There is a tiny joint effusion. There is no popliteal cyst. The soft tissues are unremarkable. There is no acute fracture. MRI/Lower Ext Joint Only (Routine) IMPRESSION: Horizontal tear of the posterior horn of the medial meniscus. 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 Tiny joint effusion. Electronically Signed: Sukumar Conway MD at 8:43 EDT ,
== END | disposition home or self-care (01) ==
LOC: MRI 07:15
PROVIDERS: Referring Provider Orthopaedic Surgery; Visit Provider Orthopaedic Surgery
DX: M25.561 Pain in right knee (principal)
CPT/HCPCS: 73721

== ENCOUNTER → 2023-11-11 | Outpatient (CLI) | payer OTHER, SELFPAY ==
[2023-09-29 11:08] VITALS: BMI 24.0
--- NOTE | 2023-11-11 16:12 | BI_ITS ---
MAMMOGRAPHY - BILATERAL SCREENING REASON FOR EXAM: Female, 53 years old. Routine annual screening examination. PERTINENT HISTORY: Non-contributory. TECHNIQUE: Digital bilateral breast jamar (3D mammographic acquisition) in the CC and MLO projections. 2-D mediolateral oblique (MLO) and craniocaudad (CC) views of both breasts were obtained. CAD: Full Field Digital Mammography with Computer Added Detection was performed. COMPARISON: Comparison is made with prior study August 28, 2021. FINDINGS: Breast Composition: There are scattered areas of fibroglandular density. There are no dominant masses or suspicious calcifications. No other significant abnormalities are identified. There has been no significant change since the prior study. BI/SCRN MAMM (CAD)W/JAMAR BILAT IMPRESSION: Stable bilateral screening mammogram. Yearly follow-up mammogram recommended. (A) ASSESSMENT CATEGORY: BIRADS Category 1: Negative. A letter regarding these results will be sent to the patient by the facility within 30 days. Approximately 10% of breast cancers are not detected by mammography. A normal mammogram should not delay biopsy of a clinically suspicious abnormality. [id number] Electronically Signed: Jackson Green MD at 8:46 EDT ,
== END | disposition home or self-care (01) ==
LOC: OPBI 16:11
PROVIDERS: Referring Provider Nurse Practitioner Family; Visit Provider Nurse Practitioner Family
DX: Z12.31 Encounter for screening mammogram for malignant neoplasm of breast (principal)
CPT/HCPCS: 77063; 77067

== ENCOUNTER → 2024-04-28 | Outpatient (CLI) | payer BC, SELFPAY ==
[2023-09-29 11:08] VITALS: BMI 24.0
[2024-04-28 13:08] LABS: Absolute Lymphocyte Count 2.62 X10^3/uL (0.83-4.51); Absolute Neutrophil Count 4.3 X10^3/uL (2.0-7.7); Basophil# 0.04 X10^3/uL; Basophil% 0.5 % (0-1); Eosinophils% 2.6 % (0-5); Hematocrit 44.2 % (37-47); Hemoglobin 14.6 g/dL (12.0-15.0); Lymphocyte # 2.62 X10^3/ul (0.83-4.51); Lymphocyte % 33.6 % (19-41); Mean Corpuscular Volume 93.8 fL (81-99); Mean Platelet Vol. 10.9 fl (6.2-12.0); Monocyte# 0.59 X10^3/uL; Monocyte% 7.6 % (0-10); NRBC Flagged by Analyzer 0 % (0-5); Neutrophil # 4.33 X10^3/uL (2.7-7.7); Neutrophil % 55.6 % (47-70); Platelet Count 201 K/mm3 (150-450); RBC Distribution Width CV 13.2 % (11.6-14.6); RBC Distribution Width SD 45.7 fl (35.1-43.9); Red Blood Count 4.71 M/mm3 (4.2-5.4); White Blood Count 7.8 K/mm3 (4.4-11.0)
[2024-04-28 13:09] LABS: ALB/GLOB Ratio 1.6 RATIO (0.9-2.4); AST(SGOT) 20 U/L (<=31); Alanine Aminotransfer ALT/SGPT 22 U/L (<=34); Albumin, Serum 4.3 g/dL (3.5-5.0); Alkaline Phosphatase 115 U/L (35-104); Anion Gap 10 (5-15); BUN 15 mg/dL (4-19); BUN/Creat Ratio 18.2 RATIO (10-20); Calcium,Total 9.8 mg/dL (7.6-11.0); Chloride 104 mmol/L (98-108); Cholesterol 155 mg/dL (<=200); Creatinine, Serum 0.82 mg/dL (0.70-1.20); EST Glomerular Filtration Rate 86 (>60); Globulin 2.7 g/dL (2.2-4.2); Glucose 87 mg/dL (70-99); High Density Lipoprotein 55 mg/dL; Low Density Lipoprotein Calc. 59 mg/dL; Potassium 4.1 mmol/L (3.3-5.1); Protein, Total 6.9 g/dL (5.9-8.4); Sodium Level 139 mmol/L (133-145); Total Bilirubin 0.19 mg/dL (0.00-1.30); Triglycerides 207 mg/dL; Very Low Density Lipoprotein 41 mg/dL (5-40); cholesterol:hdl ratio screen 2.81
[2024-04-28 18:27] LABS: Microalbumin,Random Urine < 12.0 mg/L (NO RANGE EST.)
== END | disposition home or self-care (01) ==
LOC: VSLAB 11:28
PROVIDERS: PCP Nurse Practitioner Family; Visit Provider Nurse Practitioner Family
DX: I10 Essential (primary) hypertension (principal)
CPT/HCPCS: 36415; 80053; 80061; 82043; 84443; 85025

== ENCOUNTER 2024-12-09 13:49 | Emergency (ER) | payer BC, SELFPAY ==
[2023-09-29 11:08] VITALS: BMI 24.0
[2024-12-09 13:49] VITALS: BP 145/115; PULSE 87; RESP 16; TEMP 36.7; O2SAT 99; BMI 24.7
[2024-12-09 14:23] VITALS: BP 136/62; PULSE 86; RESP 20; O2SAT 98
--- NOTE | 2024-12-09 14:29 | EKG12_ITS ---
Test Reason : CP
--- NOTE | 2024-12-09 14:30 | CT_ITS ---
PROCEDURE: CT/CTA Chst, Abd, Pel W and/or WO
[2024-12-09 14:45] LABS: Hematocrit 41.0 % (37-47); Hemoglobin 14.0 g/dL (12.0-15.0); Immature Granulocytes Count 0.040 X10^3/uL (0.0-0.0); Mean Corp Hgb Conc 34.1 g/dL (32-36); Mean Corpuscular Volume 90.7 fL (81-99); Mean Platelet Vol. 10.9 fl (6.2-12.0); NRBC Flagged by Analyzer 0 % (0-5); POSITIVE MORPHOLOGY YES; Platelet Count 192 K/mm3 (150-450); RBC Distribution Width CV 13.2 % (11.6-14.6); RBC Distribution Width SD 43.8 fl (35.1-43.9); Red Blood Count 4.52 M/mm3 (4.2-5.4); White Blood Count 13.3 K/mm3 (4.4-11.0)
[2024-12-09 14:54] LABS: Differential Indicated SCAN CRITERIA MET
[2024-12-09 15:04] LABS: Anion Gap 10 (5-15); BUN 12 mg/dL (4-19); BUN/Creat Ratio 15.1 RATIO (10-20); Calcium,Total 9.8 mg/dL (7.6-11.0); Carbon Dioxide 28.5 mmol/L (21.0-32.0); Chloride 106 mmol/L (98-108); Estimated Creatinine Clearance 81.06 ml/min (50-250); Glucose 143 mg/dL (70-99); Potassium 3.5 mmol/L (3.3-5.1); Troponin T High Sensitivity 9 ng/L (<=14)
[2024-12-09 15:51] VITALS: BP 117/71
[2024-12-09 16:00] VITALS: BP 144/72; PULSE 76; RESP 25; O2SAT 98
--- NOTE | 2024-12-09 16:04 | ED.VIS.CHEST ---
HPI <Dr. Brenda Baird MD - Last Filed: 12/10/24 08:48> History of Present Illness Chief Complaint: Chest Pain Narrative Narrative: Patient is a 54-year-old female presenting to the emergency department for chest pain. Patient states that she has had intermittent chest pain for the past few days but is now endorsing pain up in her left shoulder blade. At time of evaluation she denies any frontal chest pain but states she has an ache in her shoulder blade. States sometimes it goes down her left arm. She does have a prior past medical history of obstructive sleep apnea, OK with stent placement in 2018, ischemic cardiomyopathy, hypertension and nicotine dependence. Patient states this does not feel similar to her prior heart attack. She is on daily baby aspirin which she is compliant with. Patient endorses shortness of breath that also started at the same time as the chest pain. She denies fever, chills, cough, abdominal pain that is new, vomiting or diaphoresis. Stress test and ECHO done in 2020. [facility] <Dr. 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 difficile diarrhea Depression History of ventricular fibrillation Cardiogenic shock Ischemic cardiomyopathy Nicotine dependence Atherosclerosis of coronary artery of [place] heart without angina pectoris Home Medications ?Medication ?Instructions ?Recorded ?Last Taken ?Type aspirin 81 mg tablet,delayed 81 mg PO DAILY@0800 02/21/17 12/09/24 Rx release carvedilol 3.125 mg tablet 3.125 mg PO BID #180 tabs 01/05/18 12/09/24 Rx atorvastatin 40 mg tablet 40 mg PO DAILY 10/31/20 12/08/24 History buspirone 15 mg tablet 15 mg PO BID 11/01/22 12/09/24 History zinc acetate 25 mg (zinc) capsule 25 mg PO QDAY 12/12/23 12/05/24 History coenzyme Q10 75 mg capsule (Ultra 75 mg PO QDAY 12/25/23 12/08/24 History CoQ10) losartan 25 mg tablet 25 mg PO QDAY 12/25/23 Unknown History biotin 10,000 mcg capsule 10,000 mcg PO DAILY supplement 12/09/24 12/08/24 History buspirone 10 mg tablet 10 mg PO BID 12/09/24 12/09/24 History Allergy/AdvReac Type Severity Reaction Status Date / Time Penicillins Allergy Other Verified 12/09/24 13:53 lisinopril AdvReac cough Verified 12/09/24 13:53 Family History Father CAD (coronary artery disease) OK Diabetes Hypertension Heart disease Cancer Sister Diabetes half sister Mother CVA (cerebral vascular accident) Hypertension Brother Cancer Surgical History History of cardiac catheterization History of partial hysterectomy Hx of section Hx of tubal ligation History of recent maxillofacial surgery Hx laparoscopic cholecystectomy History of coronary artery stent placement (02/17/17) Social History Smoking Status: Current some day smoker tobacco type: cigarettes alcohol intake: current alcohol intake frequency: holidays/special occasions only substance use type: does not use ROS <Dr. Brenda Baird MD - Last Filed: 12/10/24 08:48> ROS ED ROS Narrative See HPI EXAM <Dr. Brenda Baird MD - Last Filed: 12/10/24 08:48> Physical Exam Narrative Exam Narrative: Vital signs: Reviewed General: Alert and orientedx3. No acute distress HEENT: Head is normocephalic and atraumatic, sinuses nontender, pupils equal round and reactive. Nares are patent. Oropharynx and throat exams normal. Neck: Supple without lymphadenopathy nontender Cardiovascular: Regular rate and rhythm, no murmurs. No rubs or gallops. Normal S1 and S2. Radial and DP/PT pulses are 2+ and symmetric throughout. Respiratory: Clear to auscultation bilaterally. No wheezes, rales, rhonchi Abdominal: Soft and nontender. Normal bowel sounds. No guarding or rebound. Nonsurgical abdomen Extremities: No lower extremity edema. No tenderness. No bruising. Normal range of motion. Normal sensation. Skin: No rash or redness. Neurological: Cranial nerves II through XII are grossly intact. Normal strength and sensation. Normal cerebellar function The rest of the physical exam is unremarkable Const Vital Signs: 12/09/24 13:49 12/09/24 14:14 12/09/24 14:23 Temperature 98.1 F Temperature Source Temporal Pulse Rate 87 86 Respiratory Rate 16 20 H Respiratory Effort Normal Non-Labored Blood Pressure 145/115 H 136/62 H Blood Pressure Mean 125 86 Pulse Ox 99 98 Oxygen Delivery Method Room Air Room Air 12/09/24 15:51 12/09/24 16:00 12/09/24 17:00 Temperature Temperature Source Pulse Rate 76 79 Respiratory Rate 25 H 19 H Respiratory Effort Blood Pressure 117/71 144/72 H 147/73 H Blood Pressure Mean 86 96 97 Pulse Ox 98 97 Oxygen Delivery Method Room Air 12/09/24 18:20 Temperature 98.2 F Temperature Source Pulse Rate 82 Respiratory Rate 18 Respiratory Effort Blood Pressure 156/85 H Blood Pressure Mean 108 Pulse Ox 98 Oxygen Delivery Method <Dr. Errol Beth MD - Last Filed: 12/09/24 18:15> Physical Exam Const Vital Signs: 12/09/24 13:49 12/09/24 14:14 12/09/24 14:23 Temperature 98.1 F Temperature Source Temporal Pulse Rate 87 86 Respiratory Rate 16 20 H Respiratory Effort Normal Non-Labored Blood Pressure 145/115 H 136/62 H Blood Pressure Mean 125 86 Pulse Ox 99 98 Oxygen Delivery Method Room Air Room Air 12/09/24 15:51 12/09/24 16:00 12/09/24 17:00 Temperature Temperature Source Pulse Rate 76 79 Respiratory Rate 25 H 19 H Respiratory Effort Blood Pressure 117/71 144/72 H 147/73 H Blood Pressure Mean 86 96 97 Pulse Ox 98 97 Oxygen Delivery Method Room Air 12/09/24 18:20 Temperature 98.2 F Temperature Source Pulse Rate 82 Respiratory Rate 18 Respiratory Effort Blood Pressure 156/85 H Blood Pressure Mean 108 Pulse Ox 98 Oxygen Delivery Method MDM <Dr. Brenda Baird MD - Last Filed: 12/10/24 08:48> MDM MDM Narrative Medical decision making narrative: patient is a 54-year-old female presenting to the emergency department for chest pain that radiates to her left shoulder blade. Patient was seen and examined. Vitals are stable. Patient resting in bed comfortably no acute distress. Differential includes but is not limited to: ACS, musculoskeletal, less likely aortic pathology including dissection versus aneurysm EKG shows normal sinus rhythm with nonspecific ST and T wave abnormalities. No dysrhythmia. CBC with a nonspecific mild leukocytosis at 13.3 and a normal hemoglobin. BMP with no significant normalities. Initial troponin of 9. CT of the chest abdomen pelvis showed no evidence of aortic dissection. Minimal plaque formation of the aortic arch in the abdominal aorta. Status post hysterectomy. Status post cholecystectomy. Mild hepatomegaly. Patient signed out to Dr. Beth pending 2nd troponin results. Anticipate discharge with negative EKG, first troponin and negative CTA. Clinical impression: Chest pain Repeat exam patient was turned over to me from the initiating physician. Repeat exam around 6:14 PM. Patient doing well. Labs and CTA of the chest and abdomen were unremarkable. Initial troponin was 9. Repeat troponin was 11. Initial EKG was a sinus rhythm at 80 with no acute signs of OK or ischemia. Patient is doing well. Repeat exam is benign. She will be discharged home with chest pain uncertain etiology. History & Record Review Discussion w/independent historian: Patient Lab Data Attestation: I reviewed the patient's lab results. Labs: Laboratory Results - last 24 hr 12/09/24 12/09/24 14:23 16:23 WBC 13.3 H RBC 4.52 Hgb 14.0 Hct 41.0 MCV 90.7 MCH 31.0 MCHC 34.1 RDW Std Deviation 43.8 RDW Coeff of Dylon 13.2 Plt Count 192 MPV 10.9 Immature Gran % (Auto) 0.300 Neut % (Auto) 71.5 H Lymph % (Auto) 21.4 Bosque % (Auto) 5.4 Eos % (Auto) 1.1 Baso % (Auto) 0.3 Absolute Neuts (auto) 9.5 H Absolute Lymphs (auto) 2.85 Nucleated RBC % 0 Differential Comment SCANNED Platelet Estimate ADEQUATE Sodium 144 Potassium 3.5 Chloride 106 Carbon Dioxide 28.5 Anion Gap 10 BUN 12 Creatinine 0.76 Estim Creat Clear Calc 81.06 Est GFR (MDRD) Non-Af 94 BUN/Creatinine Ratio 15.1 Glucose 143 H Calcium 9.8 Troponin T High Sens 9 Troponin T Hi Sens 2 Hr 11 Radiography Diagnostic Testing: Clinical Impression(s) from Imaging Studies Chest/Abdomen/Pelvis CTA 12/09/24 14:30 IMPRESSION: No evidence of aortic dissection. Minimal plaque formation of the aortic arch in the abdominal aorta. Status post hysterectomy. Status post cholecystectomy. Mild hepatomegaly. Reading Location: [id number] <Dr. Errol Beth MD - Last Filed: 12/09/24 18:15> [facility] Narrative Medical decision making narrative: patient is a 54-year-old female presenting to the emergency department for chest pain that radiates to her left shoulder blade. Patient was seen and examined. Vitals are stable. Patient resting in bed comfortably no acute distress. Differential includes but is not limited to: ACS, musculoskeletal, less likely aortic pathology including dissection versus aneurysm EKG shows normal sinus rhythm with nonspecific ST and T wave abnormalities. No dysrhythmia. CBC with a nonspecific mild leukocytosis at 13.3 and a normal hemoglobin. BMP with no significant normalities. Initial troponin of 9. CT of the chest abdomen pelvis showed no evidence of aortic dissection. Minimal plaque formation of the aortic arch in the abdominal aorta. Status post hysterectomy. Status post cholecystectomy. Mild hepatomegaly. Clinical impression: Chest pain Repeat exam patient was turned over to me from the initiating physician. Repeat exam around 6:14 PM. Patient doing well. Labs and CTA of the chest and abdomen were unremarkable. Initial troponin was 9. Repeat troponin was 11. Initial EKG was a sinus rhythm at 80 with no acute signs of OK or ischemia. Patient is doing well. Repeat exam is benign. She will be discharged home with chest pain uncertain etiology. Lab Data Labs: Laboratory Results - last 24 hr 12/09/24 12/09/24 14:23 16:23 WBC 13.3 H RBC 4.52 Hgb 14.0 Hct 41.0 MCV 90.7 MCH 31.0 MCHC 34.1 RDW Std Deviation 43.8 RDW Coeff of Dylon 13.2 Plt Count 192 MPV 10.9 Immature Gran % (Auto) 0.300 Neut % (Auto) 71.5 H Lymph % (Auto) 21.4 Bosque % (Auto) 5.4 Eos % (Auto) 1.1 Baso % (Auto) 0.3 Absolute Neuts (auto) 9.5 H Absolute Lymphs (auto) 2.85 Nucleated RBC % 0 Differential Comment SCANNED Platelet Estimate ADEQUATE Sodium 144 Potassium 3.5 Chloride 106 Carbon Dioxide 28.5 Anion Gap 10 BUN 12 Creatinine 0.76 Estim Creat Clear Calc 81.06 Est GFR (MDRD) Non-Af 94 BUN/Creatinine Ratio 15.1 Glucose 143 H Calcium 9.8 Troponin T High Sens 9 Troponin T Hi Sens 2 Hr 11 Radiography Diagnostic Testing: Clinical Impression(s) from Imaging Studies Chest/Abdomen/Pelvis CTA 12/09/24 14:30 IMPRESSION: No evidence of aortic dissection. Minimal plaque formation of the aortic arch in the abdominal aorta. Status post hysterectomy. Status post cholecystectomy. Mild hepatomegaly. Reading Location: [id number] Discharge Plan Triage Chief Complaint: Chest Pain ED Provider: Brenda Baird Dx/Rx/DC Orders Clinical Impression: Chest pain Instructions: ED Chest Pain, Uncertain Cause Prescriptions: No Action atorvastatin 40 mg tablet 40 mg PO DAILY buspirone 15 mg tablet 15 mg PO BID Patient Comments: takes with 10mg to =25mg losartan 25 mg tablet 25 mg PO QDAY Ultra CoQ10 75 mg capsule 75 mg PO QDAY zinc acetate 25 mg (zinc) capsule 25 mg PO QDAY Patient Comments: pt states she only takes twice weekly aspirin 81 MG tablet 81 mg PO DAILY@0800 0RF buspirone 10 mg tablet 10 mg PO BID Patient Comments: takes with 15mg to = 25mg biotin 10,000 mcg capsule 10,000 mcg PO DAILY carvedilol 3.125 mg tablet 3.125 mg PO BID Qty: 180 3RF Primary Care Provider: Kala Fisher Referrals: Kala Fisher, [facility] [Primary Care Provider, Family Practice] - As Needed Activity Restrictions/Additional Instructions: Follow-up with your primary care provider. Return if worse. Your labs and CAT scan today and EKG were unremarkable. Print Language: Kiswahili Disposition Disposition: Home, Self Care Discharge Date/Time: 12/09/24 18:33
[2024-12-09 17:00] VITALS: BP 147/73; PULSE 79; RESP 19; O2SAT 97
[2024-12-09 17:42] LABS: Troponin T High Sens 2 HR 11 ng/L (<=14)
[2024-12-09 18:20] VITALS: BP 156/85; PULSE 82; RESP 18; TEMP 36.8; O2SAT 98
[2024-12-09 19:03] LABS: Differential Comment SCANNED
== END 2024-12-09 18:33 | disposition home or self-care (01) ==
PROVIDERS: Emergency Provider Student in an Organized Health Care Education/Training Program; PCP Nurse Practitioner Family; Visit Provider Student in an Organized Health Care Education/Training Program
DX: R07.9 Chest pain, unspecified (principal); M25.512 Pain in left shoulder; E78.00 Pure hypercholesterolemia, unspecified; R06.02 Shortness of breath; Z95.5 Presence of coronary angioplasty implant and graft; I10 Essential (primary) hypertension; I25.10 Atherosclerotic heart disease of native coronary artery without angina pectoris; Z79.82 Long term (current) use of aspirin; Z79.899 Other long term (current) drug therapy; F17.210 Nicotine dependence, cigarettes, uncomplicated
CPT/HCPCS: 71275; 74174; 80048; 84484; 85025; 93005; 99284; Q9967; A4216

== ENCOUNTER → 2024-12-23 | Outpatient (CLI) | payer BC, SELFPAY ==
[2023-09-29 11:08] VITALS: BMI 24.0
[2024-12-23 16:59] LABS: Cholesterol 160 mg/dL (<=200); Low Density Lipoprotein Calc. 76 mg/dL; Triglycerides 206 mg/dL; Very Low Density Lipoprotein 41 mg/dL (5-40); cholesterol:hdl ratio screen 3.20
[2024-12-23 17:12] LABS: AST(SGOT) 19 U/L (<=31); Alanine Aminotransfer ALT/SGPT 18 U/L (<=34); Albumin, Serum 4.3 g/dL (3.5-5.0); Alkaline Phosphatase 110 U/L (35-104); Bilirubin, Direct < 0.08 mg/dL (0.00-0.30); Globulin 3.1 g/dL (2.2-4.2)
== END | disposition home or self-care (01) ==
LOC: LAB 15:50
PROVIDERS: PCP Nurse Practitioner Family; Referring Provider Nurse Practitioner Family; Visit Provider Nurse Practitioner Family
DX: I25.10 Atherosclerotic heart disease of native coronary artery without angina pectoris (principal); I10 Essential (primary) hypertension; F17.210 Nicotine dependence, cigarettes, uncomplicated
CPT/HCPCS: 36415; 80061; 80076; 83036; 83695

== ENCOUNTER → 2025-01-12 | Outpatient (CLI) | payer BC, SELFPAY ==
[2023-09-29 11:08] VITALS: BMI 24.0
--- NOTE | 2025-01-12 08:49 | CDU_ITS ---
Reason For Study Reason For Study: CAD hx, Cold Legs Rt. Velocities/BP Lt. Velocities/BP Prox CCA 75.9/14.5 cm/sec. Prox CCA 66.7/22.5 cm/sec. Mid CCA 49.4/14.5 cm/sec. Mid CCA 61.8/22.5 cm/sec. Dist CCA 57.0/23.0 cm/sec. Dist CCA 66.7/21.2 cm/sec. Prox ICA 121.4/33.6 cm/sec. Prox ICA 75.1/30.0 cm/sec. Mid ICA 90.0/33.5 cm/sec. Mid ICA 228.9/47.4 cm/sec. Dist ICA 98.6/43.3 cm/sec. Dist ICA 101.1/45.8 cm/sec. Rt. ICA/CCA = 2.5. Lt. ICA/CCA = 3.7. Prox ECA 156.5/22.6 cm/sec. Prox ECA 113.8/20.6 cm/sec. Rt. Vert. 58.1/16.3 cm/sec. Lt. Vert. 61.9/23.4 cm/sec. Right Extracranial There is intimal thickening but no significant atherosclerotic plaque noted in the right common carotid artery. There is heterogeneous, irregular atherosclerotic plaque noted in the right internal carotid artery. There is heterogeneous, irregular atherosclerotic plaque noted in the right external carotid artery. Antegrade flow is noted in the right vertebral artery. Left Extracranial There is intimal thickening but no significant atherosclerotic plaque noted in the left common carotid artery. There is heterogeneous, irregular atherosclerotic plaque noted in the left internal carotid artery. There is heterogeneous, irregular atherosclerotic plaque noted in the left external carotid artery. Antegrade flow is noted in the left vertebral artery. Procedure Carotid Duplex 30496. This is a Carotid Duplex examination using B-mode, color flow and specral Doppler. Exam performed in department. VL/Carotid Duplex Ultrasound Interpretation Summary Mild (<50%) stenosis right extracranial internal carotid. Moderate (50-69%) glendy nosis left extracranial internal carotid. Flow within the vertebral arteries is antegrade bilaterally. Ordering Physician: Simón Hood Referring Physician: Norma Olivas NP Performed By: Juliette Schwartz RVT
--- NOTE | 2025-01-12 08:49 | ART_ITS ---
Reason For Study Reason For Study: Decreased pedal pulses Procedure A bilateral lower extremity continuous wave Doppler with analog waveform analysis,segmental pressures,and ankle brachial indexes without exercise. Left Segmental Pressures Left brachial= 128mmHg. Left posterior tibial artery = 147mmHg. Left dorsalis pedis artery = 145mmHg. Left digit = 106 mmHg. The left dorsalis pedis waveforms are triphasic. The left posterior tibial artery waveforms are triphasic. Right Segmental Pressures Right brachial= 131mmHg. Right posterior tibial artery = 145mmHg. Right dorsalis pedis artery = 138mmHg. Right digit = 113 mmHg. The right dorsalis pedis waveforms are triphasic. The right posterior tibial artery waveforms are triphasic. Indices The right ankle brachial index by the dorsalis pedis is 1.05. The right ankle brachial index by the posterior tibial artery is 1.11. The right digital-brachial index is 0.86. The left ankle brachial index by the dorsalis pedis is 1.11. The left ankle brachial index by the posterior tibial artery is 1.12. The left digital-brachial index is 0.81. VL/Lower Ext Art Exam w/o Exercis Interpretation Summary Triphasic Doppler waveforms are noted at ankle level bilaterally. Pulse-volume recordings appear satisfactory at all levels bilaterally. Resting ankle-brachial indices are normal bilaterally. Digi kurt-brachial indices are normal bilaterally. There is no evidence of significant arterial occlusive disease in the lower ext remities bilaterally. Ordering Physician: Simón Hood Referring Physician: Norma Olivas NP Performed By: BONITA LOGAN T
== END | disposition home or self-care (01) ==
LOC: CVS 08:49
PROVIDERS: PCP Nurse Practitioner Family; Referring Provider Nurse Practitioner Family; Visit Provider Nurse Practitioner Family
DX: I65.22 Occlusion and stenosis of left carotid artery (principal); I25.10 Atherosclerotic heart disease of native coronary artery without angina pectoris; I10 Essential (primary) hypertension; F17.210 Nicotine dependence, cigarettes, uncomplicated
CPT/HCPCS: 93880; 93923